=== PATIENT | female | born 1935 | race Caucasian/White ===

== ENCOUNTER 2016-05-01 08:58 | Inpatient (IN) | payer MEDICARE, BC ==
[2016-05-01] VITALS (13 sets, daily range): BP systolic 88–154; BP diastolic 52–89
[~2016-05-01] VITALS: Ht 160 cm; Wt 47.6 kg
[~2016-05-01 08:58] MED LIST: ACET-2267 PO; ALPR0.254 PO; AMLO5TAB4 PO; APIX2.5T PO; ASCO10006 PO; ASCO1TAB36 PO; ATEN1TAB3 PO; CALC1TAB PO; DIGO125T PO; DLT240CCR PO; FLUT12AE4 IH; FURO20TA4 PO; HCT25T PO; IPRA3AMP INH; LISI40TA PO; LORA0.5T PO; LOSA100T28 PO; MULT-1029 PO; NEBU1EAC10 MC; NEBU1EAC2 MC; PRD10T PO; SIMV10TA3 PO; [UNRECOGNIZED DRUG - OTHER]
--- OUTSIDE RECORDS SUMMARY | 2016-05-01 09:04 | XMS REPORT | Continuity of Care Document ---
Author Author [facility] Organization [facility] Address Unknown Phone Unavailable Care Team Providers Care Machine Strap Buckler Name Role Phone CHI SANTANA DO PCP Insurance Providers Payer Name Policy Number Subscriber Name Relationship [employer] [id number] Liv Fierro 18 Self / Same As Patient [facility] [id number] Liv Fierro 18 Self / Same As Patient Advance Directives Directive Response Recorded Date/Time Advance Directives No 06/26/15 6:18pm Health Care Power of Elevator Examiner Y has from another state, in black box at home 06/26/15 6:18pm Organ Donor No 06/26/15 6:18pm Problems Active Problems Medical Problem Onset Date Status COPD with acute exacerbation Unknown Acute Headache Unknown Acute Hypercarbia Unknown Acute Medications Current Home Medications Medication Dose Units Route Directions Days/Qty Instructions Start Date Simvastatin 10 Mg 10 Mg Oral Bedtime 07/06/13 Digoxin 125 Mcg 125 Mcg Oral Daily 11/17/14 Apixaban 2.5 Mg 2.5 Mg Oral Daily 11/17/14 Amlodipine Besylate 5 Mg 5 Mg Oral Daily 11/17/14 Losartan Potassium 100 Mg 100 Mg Oral Daily 06/26/15 Calcium Carbonate/Vitamin D3 1 Each 1 Tab Oral Twice A Day 06/26/15 Multivit-Min/Fa/Lycopene/Lut 1 Each 1 Tab Oral Daily 06/26/15 Acetaminophen 500 Mg 500 Mg Oral Every 4HRS as needed for Pain 06/25 Ascorbic Acid 1,000 Mg 1,000 Mg Oral Bedtime 06/27/15 Ipratropium/Albuterol Sulfate (Duoneb) 3 Ml 3 Ml Inhalation Respiratory Every Four Hours 60 06/29/15 Prednisone 10 Mg 60 Mg Oral Daily 42 Take 6 tabs(60mg)daily, decrease by 1 tab(10mg) every other day. 06/30/15 Alprazolam 0.25 Mg 0.25 Mg Oral Twice A Day as needed for Anxiety 30 06/30/15 Fluticasone/Salmeterol 12 Gm 2 Puff Inhalation Bid@08,20 1 06/30/15 Past Home Medications Medication Directions Ordered Status Hydrochlorothiazide 25 Mg Tab, 12.5 Mg Oral Daily 07/06/13 Discontinued Lisinopril 40 Mg Tablet, 40 Mg Oral Daily 07/06/13 Discontinued Atenolol/Chlorthalidone (Tenoretic) 1 Each Tablet, 1 Each Oral Daily Discontinued Lorazepam 0.5 Mg Tablet, 0.25 Mg Oral As Needed 07/06/13 Discontinued [Yesica, James] , 2.5 Twice A Day 07/07/13 Discontinued Diltiazem Hcl 240 Mg Cap, 240 Mg Oral Daily 07/07/13 Discontinued Alprazolam 0.25 Mg Tablet, 0.25 Mg Oral Twice A Day as needed for Anxiety Discontinued Furosemide 20 Mg Tablet, 20 Mg Oral 11/17/14 Discontinued Ascorbate Calcium/Bioflavonoid 1 Each Tablet, 1 Each Oral 06/26/15 Discontinued Social History Social History Problem Response Recorded Date/Time Alcohol Use Regular Use 06/26/2015 6:19pm Recreational Drug Use No 06/26/2015 6:19pm Recent Foreign Travel No 07/06/2013 6:21pm Recent Infectious Disease Exposure No 07/06/2013 6:21pm Hospitalization with Isolation Denies 07/07/2013 2:43pm Sexually Transmitted Disease No 06/26/2015 6:19pm HIV/AIDS No 06/26/2015 6:19pm Sexually Transmitted Disease No 06/26/2015 6:19pm Hospitalization with Isolation Denies 07/07/2013 2:43pm Hospital Discharge Instructions No hospital discharge instructions. Plan of Care Prescriptions See Medication Section Functional Status No functional status results. Allergies, Adverse Reactions, Alerts No known allergies. Immunizations No immunization records. Vital Signs No known vital signs results. Results No known relevant diagnostic tests, laboratory data and/or discharge summary. Procedures No known history of procedures. Encounters Encounter Location Arrival/Admit Date Discharge/Depart Date Attending Provider Discharged Recurring [facility] 01/11/16 10:00am 11:59pm JASON SCALES DO
[2016-05-01] MEDS ORDERED: RX-NITROGLYCERIN 0.4 MG TAB BTL 25'S SL ONE (09:15)
[2016-05-01] MEDS ORDERED: RT-ALBUTEROL/IPRATROPIUM 3 ML (DUONEB) VIAL INH ONE (09:15)
[2016-05-01] MEDS ORDERED: ASPIRIN 81 MG CHEW (CHILDREN'S ASA) PO ONE (09:15)
[2016-05-01 09:19] LABS: BASOPHILS # (AUTO) 0.1 10^3/uL (0.0-0.1); BASOPHILS % (AUTO) 1 % (0-10); EOSINOPHILS # (AUTO) 0.2 10^3/uL (0.0-0.3); EOSINOPHILS % (AUTO) 2 % (0-10); LYMPHOCYTES # (AUTO) 2.1 X 10^3 (1.0-4.0); LYMPHOCYTES % (AUTO) 27 % (12-44); MEAN CORPUSCULAR HEMOGLOBIN 32 PG (25-34); MEAN CORPUSCULAR HGB CONC 33 G/DL (32-36); MEAN CORPUSCULAR VOLUME 97 FL (80-99); MEAN PLATELET VOLUME 9.8 FL (7.4-10.4); MONOCYTES # (AUTO) 0.8 X 10^3 (0.0-1.0); MONOCYTES % (AUTO) 11 % (0-12); NEUTROPHILS # (AUTO) 4.5 X 10^3 (1.8-7.8); NEUTROPHILS % (AUTO) 58 % (42-75); PLATELET COUNT 316 10^3/uL (130-400); RED BLOOD COUNT 4.26 10^6/uL (4.35-5.85); RED CELL DISTRIBUTION WIDTH 13.6 % (10.0-14.5); WHITE BLOOD COUNT 7.7 10^3/uL (4.3-11.0)
[2016-05-01 09:29] LABS: PROTHROMBIN TIME PATIENT 12.5 SEC (12.2-14.7)
[2016-05-01 09:37] LABS: ALANINE AMINOTRANSFERASE 17 U/L (0-55); ALBUMIN 4.2 G/DL (3.2-4.5); ANION GAP 12 MMOL/L (5-14); ASPARTATE AMINO TRANSFERASE 39 U/L (5-34); BILIRUBIN,TOTAL 0.7 MG/DL (0.1-1.0); BLOOD UREA NITROGEN 8 MG/DL (7-18); BUN/CREATININE RATIO 10; CALCIUM 9.9 MG/DL (8.5-10.1); CARBON DIOXIDE 24 MMOL/L (21-32); CHLORIDE 102 MMOL/L (98-107); CREATININE SERUM 0.79 MG/DL (0.60-1.30); GFR ESTIMATED > 60; GLUCOSE 128 MG/DL (70-105); POTASSIUM 4.3 MMOL/L (3.6-5.0); SODIUM 138 MMOL/L (135-145); TOTAL PROTEIN 6.9 G/DL (6.4-8.2)
[2016-05-01 09:44] LABS: MYOGLOBIN SERUM 372.8 NG/ML (10.0-92.0)
--- NOTE | 2016-05-01 09:55 | Diagnostic Imaging Report ---
INDICATION: Bilateral arm pain. PA chest obtained at 9:37 a.m. and compared to 06/28/15. FINDINGS: Heart is normal in size. There are mild chronic appearing increased basilar markings. There is no acute consolidation or pneumothorax or pleural fluid. There is a rounded density in the right cardiophrenic angle, not present on prior study. It is not clear this is a true lesion or artifact. Consider chest CT as clinically warranted. IMPRESSION: Mild chronic appearing increased basilar markings. No definite consolidation or pleural fluid. There is a rounded density in the right cardiophrenic angle which is not seen on the prior study of 06/28/15. Consider chest CT for further evaluation. Dictated by: Dictated on workstation # [id number]
--- NOTE | 2016-05-01 09:58 | ED Chest Pain ---
General Chief Complaint: Chest Pain Stated Complaint: CHEST/BOTH ARMS PAIN Nursing Triage Note: PT CO OF CHEST PAIN SINCE YESTERDAY AM, PT CO OF C/P BOTH ARMS, HEAD,RATES 8/10. Nursing Sepsis Screen: No Definite Risk Source: patient Exam Limitations: no limitations History of Present Illness Time seen by provider: 09:00 Initial Comments This 80-year-old woman presents to the emergency room with complaints of pain across her lower chest and down both arms. Pain also radiates into her neck and head. She has not been feeling well for several days ago developed the chest pain yesterday morning. It became worse today. She is rather short of breath which is chronic due to COPD. She is presently on a Eliquis for arrhythmia. However, she only takes one dose a day because she has fears of bleeding. She is in sinus rhythm at this time. She denies any history of coronary artery disease. Allergies and Home Medications Allergies Coded Allergies: No Known Drug Allergies (Unverified , 06/26/15) Home Medications Acetaminophen 500 Mg Tablet 500 MG PO Q4H PRN PRN PAIN (Reported) Alprazolam 0.25 Mg Tablet #30 0.25 MG PO BID PRN PRN ANXIETY Prescribed by: SONYA COBOS on 06/30/15 0954 Amlodipine Besylate 5 Mg Tablet 5 MG PO DAILY (Reported) Apixaban 2.5 Mg Tablet 2.5 MG PO DAILY (Reported) Ascorbic Acid 1,000 Mg Tablet 1,000 MG PO HS (Reported) Calcium Carbonate/Vitamin D3 1 Each Tablet 1 TAB PO BID (Reported) Digoxin 125 Mcg Tablet 125 MCG PO DAILY (Reported) Fluticasone/Salmeterol 12 Gm Hfa.aer.ad #1 2 PUFF IH BID@ Prescribed by: SONYA COBOS on 06/30/15 0954 Ipratropium/Albuterol Sulfate 3 Ml Ampul.neb #60 3 ML INH RTQ4HR Prescribed by: SONYA COBOS on 06/29/15 0906 Losartan Potassium 100 Mg Tablet 100 MG PO DAILY (Reported) Multivit-Min/FA/Lycopene/Lut 1 Each Tablet 1 TAB PO DAILY (Reported) Simvastatin 10 Mg Tablet 10 MG PO HS (Reported) Review of Systems Constitutional: no symptoms reported EENTM: No Symptoms Reported Respiratory: See HPI Cardiovascular: See HPI Gastrointestinal: No Symptoms Reported Genitourinary: No Symptoms Reported Musculoskeletal: no symptoms reported Skin: no symptoms reported Psychiatric/Neurological: No Symptoms Reported Endocrine: No Symptoms Reported Hematologic/Lymphatic: No Symptoms Reported Past Hauvfma-Iyjzkv-Ijaxqp Hx Patient Social History Alcohol Use: Regular Use (2-3 drinks daily) Recreational Drug Use: No Smoking Status: Former Smoker Recent Foreign Travel: No Contact w/Someone Who Travel: No Recent Infectious Disease Expo: No Recent Hopitalizations: No Immunizations Up To Date Tetanus Booster (TDap): Less than 5yrs Date of Pneumonia Vaccine: Jan 01, 2009 Date of Influenza Vaccine: Dec 02, 2015 Seasonal Allergies Seasonal Allergies: No Surgeries HX Surgeries: Yes (anurysm repair in [address]) Respiratory Hx Respiratory Disorders: Yes Respiratory Disorders: COPD, Emphysema Cardiovascular Hx Cardiac Disorders: Yes Cardiac Disorders: Atrial Fibrillation, Hypertension Neurological Hx Neurological Disorders: Yes (anurysm repair 2000) Reproductive System Hx Reproductive Disorders: No Sexually Transmitted Disease: No HIV/AIDS: No Genitourinary Hx Genitourinary Disorders: No Gastrointestinal Hx Gastrointestinal Disorders: No Musculoskeletal Hx Musculoskeletal Disorders: Yes ("not significant" ) Musculoskeletal Disorders: Arthritis Endocrine Hx Endocrine Disorders: No HEENT HX ENT Disorders: Yes HEENT Disorders: Cataract Hearing Impairment: Hard of Hearing Cancer Hx Cancer: No Psychosocial Hx Psychiatric Problems: Yes Behavioral Health Disorders: Anxiety Integumentary HX Skin/Integumentary Disorder: No Blood Transfusions Hx Blood Disorders: No Adverse Reaction to a Blood Tr: No Family Medical History Significant Family History: No Pertinent Family Hx Physical Exam Vital Signs Vital Sign - Last 12Hours Capillary Refill : Less Than 3 Seconds General Appearance: WD/WN Mild Distress Thin HEENT: PERRL/EOMI Normal ENT Inspection Neck: Normal Inspection Respiratory: Accessory Muscle Use Decreased Breath Sounds Wheezing (with very prolonged expiratory phase) Cardiovascular: Regular Rate, Rhythm No Edema No Murmur Gastrointestinal: Normal Bowel Sounds Non Tender Soft Extremity: Normal Inspection Non Tender No Calf Tenderness No Pedal Edema Other (negative Komal) Neurologic/Psychiatric: Alert Oriented x3 No Motor/Sensory Deficits 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 Norm as Tested Skin: Normal Color Warm/Dry Progress/Results/Core Measures Results/Orders Lab Results Laboratory Tests Test 05/01/16 09:05 Range/Units Activated Partial Thromboplast Time 34 24-35 SEC Alanine Aminotransferase (ALT/SGPT) 17 0-55 U/L Albumin 4.2 3.2-4.5 G/DL Alkaline Phosphatase 62 40-136 U/L Anion Gap 12 5-14 MMOL/L Aspartate Amino Transf (AST/SGOT) 39 H 5-34 U/L BUN/Creatinine Ratio 10 Basophils # (Auto) 0.1 0.0-0.1 10^3/uL Basophils (%) (Auto) 1 0-10 % Blood Urea Nitrogen 8 7-18 MG/DL Calcium Level 9.9 8.5-10.1 MG/DL Carbon Dioxide Level 24 21-32 MMOL/L Chloride Level 102 98-107 MMOL/L Creatinine 0.79 0.60-1.30 MG/DL Digoxin Level 0.40 L 0.80-2.00 NG/ML Eosinophils # (Auto) 0.2 0.0-0.3 10^3/uL Eosinophils (%) (Auto) 2 0-10 % Estimat Glomerular Filtration Rate > 60 Glucose Level 128 H 70-105 MG/DL Hematocrit 42 35-52 % Hemoglobin 13.8 11.5-16.0 G/DL INR Comment 1.0 0.8-1.4 Lymphocytes # (Auto) 2.1 1.0-4.0 X 10^3 Lymphocytes (%) (Auto) 27 12-44 % Magnesium Level 2.0 1.8-2.4 MG/DL Mean Corpuscular Hemoglobin 32 25-34 PG Mean Corpuscular Hemoglobin Concent 33 32-36 G/DL Mean Corpuscular Volume 97 80-99 FL Mean Platelet Volume 9.8 7.4-10.4 FL Monocytes # (Auto) 0.8 0.0-1.0 X 10^3 Monocytes (%) (Auto) 11 0-12 % Myoglobin 372.8 H 10.0-92.0 NG/ML Neutrophils # (Auto) 4.5 1.8-7.8 X 10^3 Neutrophils (%) (Auto) 58 42-75 % Platelet Count 316 130-400 10^3/uL Potassium Level 4.3 3.6-5.0 MMOL/L Prothrombin Time 12.5 12.2-14.7 SEC Red Blood Count 4.26 L 4.35-5.85 10^6/uL Red Cell Distribution Width 13.6 10.0-14.5 % Sodium Level 138 135-145 MMOL/L Total Bilirubin 0.7 0.1-1.0 MG/DL Total Protein 6.9 6.4-8.2 G/DL Troponin I 2.02 *H <0.30 NG/ML White Blood Count 7.7 4.3-11.0 10^3/uL My Orders Orders-CIRA WALKER MD Cbc With Automated Diff (05/01/16 09:00) Magnesium (05/01/16 09:00) Chest 1 View, Ap/Pa Only (05/01/16 09:00) Ekg Tracing (05/01/16 09:00) Cardiac Profile 1 (05/01/16 09:00) Comprehensive Metabolic Panel (05/01/16 09:00) Myoglobin Serum (05/01/16 09:00) Protime With Inr (05/01/16 09:00) Partial Thromboplastin Time (05/01/16 09:00) O2 (05/01/16 09:00) Monitor-Rhythm Ecg Trace Only (05/01/16 09:00) Lipid Panel (05/02/16 06:00) Saline Lock/Iv-Start (05/01/16 09:00) Aspirin Chewable Tablet (Baby Aspirin Ch (05/01/16 09:15) Rx-Nitroglycerin Sl Tabs (Rx-Nitrostat S (05/01/16 09:15) Albuterol/Ipra Inhalation Soln (Duoneb I (05/01/16 09:15) Svn Sm Volume Nebulizer Rt-Rfs (05/01/16 09:10) Fentanyl Injection (Sublimaze Injection (05/01/16 10:00) Clopidogrel Tablet (Plavix Tablet) (05/01/16 10:15) Metoprolol Succinate (Xl) Tab (Toprol Xl (05/01/16 10:15) Heparin Drip 31385 Unit/500ml (Heparin (05/01/16 10:07) Heparin (Bolus Per Protocol) (Heparin (B (05/01/16 10:07) Digoxin (05/01/16 10:21) Metoprolol Succinate (Xl) Tab (Toprol Xl (05/01/16 10:30) Medications Given in ED Current Medications Medications Dose Ordered Sig/Rika Route Start Time Stop Time Status Last Admin Dose Admin Albuterol/ Ipratropium 3 ml ONCE ONCE INH 05/01/16 09:15 05/01/16 09:16 DC 05/01/16 09:25 3 ML Aspirin 324 mg ONCE ONCE PO 05/01/16 09:15 05/01/16 09:16 DC 05/01/16 09:20 324 MG Clopidogrel Bisulfate 150 mg 150 mg ONCE ONCE PO 05/01/16 10:15 05/01/16 10:16 DC 05/01/16 10:21 150 MG Fentanyl Citrate 50 mcg ONCE ONCE IVP 05/01/16 10:00 05/01/16 10:01 DC 05/01/16 10:05 50 MCG Heparin Sodium (Porcine) HEPARIN BOLUS ACS PROTOC... 1007 ONCE IV 05/01/16 10:07 05/01/16 10:09 DC 05/01/16 10:20 5,000 UNIT Heparin Sodium/ Dextrose 500 ml @ 0 mls/hr Q0M ONCE IV 05/01/16 10:07 05/01/16 10:09 DC 05/01/16 10:22 12 MLS/HR Nitroglycerin 0.4 mg UD ONCE SL 05/01/16 09:15 05/01/16 09:16 DC 05/01/16 09:19 0.4 MG Vital Signs/I&O Vital Sign - Last 12Hours 05/01/16 05/01/16 05/01/16 05/01/16 09:00 09:00 09:00 09:25 Temp 97.8 Pulse 57 Resp 22 B/P 159/89 Pulse Ox 99 99 98 O2 Delivery Nasal Cannula Nasal Cannula Nasal Cannula O2 Flow Rate 2 2 2 2.5 Blood Pressure Mean: 112 Progress Note #1: Time: 10:05 Progress Note Patient's pain was not alleviated with nitroglycerin or DuoNeb treatment. Patient was given aspirin per protocol. Pain is now a 6/10 which was slightly improved from 8/10. Troponin elevation was noted on labs and Dr. Zaragoza was notified. He requests Plavix 150 mg, Toprol-XL 50-100 mg, heparin drip, and admission to the ICU. He also request consultation with Dr. Anguiano and Dr. DURAND. Progress Note #2: Time: 10:30 Progress Note Vitals are stable. Patient is now pain-free after fentanyl. Patient has received medications as detailed above. Toprol-XL 50 mg rather than 100 mg was administered as blood pressure and heart rate improved after pain was controlled. He requests narcotics be administered for pain control. ECG Initial ECG Impression Date: May 01, 2016 Initial ECG Impression Time: 09:04 Initial ECG Rate: 71 Initial ECG Rhythm: Normal Sinus Comment Sinus rhythm with no ST elevation or depression. Borderline T wave abnormalities nondiagnostic of STEMI. Frequent PVCs noted. Diagnostic Imaging Diagonstic Imaging: Xray Plain Films/CT/US/NM/MRI: chest Comments Chest x-ray viewed by me and report reviewed. See report below: NAME: LIV CARTER [facility] REC#: [id number] PT STATUS: REG ER : 1935 PHYSICIAN: CIRA WALKER MD ADMIT DATE: 05/01/16/ER Draft Date of Exam:05/01/16 CHEST 1 VIEW, AP/PA ONLY INDICATION: Bilateral arm pain. PA chest obtained at 9:37 a.m. and compared to 06/28/15. FINDINGS: Heart is normal in size. There are mild chronic appearing increased basilar markings. There is no acute consolidation or pneumothorax or pleural fluid. There is a rounded density in the right cardiophrenic angle, not present on prior study. It is not clear this is a true lesion or artifact. Consider chest CT as clinically warranted. IMPRESSION: Mild chronic appearing increased basilar markings. No definite consolidation or pleural fluid. There is a rounded density in the right cardiophrenic angle which is not seen on the prior study of 06/28/15. Consider chest CT for further evaluation. Dictated on workstation # [id number] Dict: 05/01/16 0950 Trans: 05/01/16 0955 [id number] Interpreted by: SANDY PHILIPPE MD Departure Communication Time/Spoke to Admitting Phy: 10:05 Communication Case was discussed with Dr. Zaragoza. See notes above. He requests consultation with Dr. Anguiano and Dr. DURAND. Time/Spoke to Consulting Physi: 10:31 Communication/Consulting Dr. Durand was notified of consult. We discussed the end STEMI, abnormal chest findings, and alcohol use. She will follow-up on the chest x-ray and monitor the patient for alcohol withdrawal. Patient reported she has been able to tolerate several days off of alcohol in the past and is not concerned about withdrawal. Impression Impression: Primary Impression: Non-ST elevation myocardial infarction (NSTEMI) Additional Impressions: Abnormal chest x-ray Chest pain Qualified Code: R07.9 - Chest pain, unspecified Alcohol dependence Qualified Code: F10.29 - Alcohol dependence with unspecified alcohol-induced disorder History of atrial fibrillation COPD exacerbation Disposition: ADMITTED INPATIENT Condition: Improved Decision to Admit Reason: Admit from ER (General) Decision to Admit/Date: May 01, 2016 Time/Decision to Admit Time: 09:15 Departure-Patient Inst. Referrals: CHI DURAND DO (PCP/Family) Primary Care Physician CIRA WALKER MD May 01, 2016 09:58
[2016-05-01] MEDS ORDERED: fentaNYL INJECTION 100 MCG/2 ML AMP IVP ONE (10:00)
[2016-05-01] MEDS ORDERED: HEParin 1000 UNIT/ML (10ML VIAL) FOR BOLUS IV ONE (10:07)
[2016-05-01] MEDS ORDERED: HEParin DRIP 25000 UNIT/500ML 500 ML IV ONE (10:07)
[2016-05-01] MEDS ORDERED: meTOproloL SUCCINATE 50 MG (TOPROL XL) TAB PO SCH ×2 (10:15→10:30)
[2016-05-01] MEDS ORDERED: CLOPIDOGREL 75 MG (PLAVIX) TABLET PO ONE (10:15)
[2016-05-01] MEDS ORDERED: ONDANSETRON 4 MG/2 ML (SDV) Z0FRAN IV PRN (11:45)
[2016-05-01] MEDS ORDERED: morphine INJ 4 MG/ML 1 ML (VIAL/SYRINGE) IV PRN (11:45)
[2016-05-01] MEDS ORDERED: CATHETER FLUSH 10 ML SYR IV PRN (11:45)
[2016-05-01] MEDS ORDERED: NS IV 1000 ML 1,000 ML IV SCH (11:45)
--- NOTE | 2016-05-01 13:05 | Cardiology History & Physical ---
HPI-Cardiology Cardiology H&P Date of Admission 05/01/16 Primary Care Physician Mercedes Durand DO Attending Physician Olimpia Zaragoza MD FACP [facility] Consulting Physician [facility] CC: Chest discomfort HPI: 80 yo woman with midsternal discomfort, waxing and waning, but not fully resolved for approx 18 hours prior to presentation. Was mild to mod, radiating to arms, pressure-like, not associated with other symptoms. Currently, no chest discomfort. Has chronic B[place], unchanged in the recent past. Denies palp or syncope. Denies recent cough, fever, chill, ankle swelling Review of Systems-Cardiology Review of Systems Constitutional: No weight loss, No weight gain Eyes: No vision change Ears/Nose/Throat: No ear discharge, No nasal drainage, No recent hearing loss Respiratory: As described under HPI Cardiovascular: As described under HPI Gastrointestinal: No constipation, No diarrhea, No nausea, No vomiting Genitourinary: No dysuria, No hematuria Musculoskeletal: No back pain, joint painNo joint swelling Skin: No rash, No ulcerations Psychiatric/Neurological: No focal weakness, No syncope Hematologic: No bleeding abnormalities VYP-Nwqgfm-Hmqfpc Hx Patient Social History Alcohol Use: Regular Use (2-3 drinks daily) Recreational Drug Use: No Smoking Status: Former Smoker Recent Foreign Travel: No Recent Infectious Disease Expo: No Hospitalization with Isolation: Denies Immunizations Up To Date Tetanus Booster (TDap): Less than 5yrs Date of Pneumonia Vaccine: Jan 01, 2009 Date of Influenza Vaccine: Dec 02, 2015 Past Medical History PMH As described under Assessment. Family Medical History Family Medical History: No fam h/o early CAD or SCD Allergies and Home Medications Allergies Coded Allergies: No Known Drug Allergies (Unverified , 06/26/15) Home Medications Acetaminophen 500 Mg Tablet 500 MG PO Q4H PRN PRN PAIN (Reported) Alprazolam 0.25 Mg Tablet #30 0.25 MG PO BID PRN PRN ANXIETY Prescribed by: SONYA COBOS on 06/30/15 0933 Amlodipine Besylate 5 Mg Tablet 5 MG PO DAILY (Reported) Apixaban 2.5 Mg Tablet 2.5 MG PO DAILY (Reported) Ascorbic Acid 1,000 Mg Tablet 1,000 MG PO HS (Reported) Calcium Carbonate/Vitamin D3 1 Each Tablet 1 TAB PO BID (Reported) Digoxin 125 Mcg Tablet 125 MCG PO DAILY (Reported) Fluticasone/Salmeterol 12 Gm Hfa.aer.ad #1 2 PUFF IH BID@08,20 Prescribed by: SONYA COBOS on 06/30/15 0954 Ipratropium/Albuterol Sulfate 3 Ml Ampul.neb #60 3 ML INH RTQ4HR Prescribed by: SONYA COBOS on 06/29/15 0906 Losartan Potassium 100 Mg Tablet 100 MG PO DAILY (Reported) Multivit-Min/FA/Lycopene/Lut 1 Each Tablet 1 TAB PO DAILY (Reported) Simvastatin 10 Mg Tablet 10 MG PO HS (Reported) Physical Exam-Cardiology Physical Exam Vital Signs/I&O Vital Sign - Last 12Hours 05/01/16 05/01/16 05/01/16 05/01/16 09:00 09:00 09:00 09:25 Temp 97.8 Pulse 57 Resp 22 B/P 159/89 Pulse Ox 99 99 98 O2 Delivery Nasal Cannula Nasal Cannula Nasal Cannula O2 Flow Rate 2 2 2 2.5 05/01/16 11:23 Temp 97.8 Pulse 71 Resp 16 Pulse Ox 98 O2 Flow Rate 2.5 Capillary Refill : Less Than 3 Seconds Data Review Labs Laboratory Tests 05/01/16 09:05: Activated Partial Thromboplast Time 34, Alanine Aminotransferase (ALT/SGPT) 17, Albumin 4.2, Alkaline Phosphatase 62, Anion Gap 12, Aspartate Amino Transf (AST/ SGOT) 39H, BUN/Creatinine Ratio 10, Basophils # (Auto) 0.1, Basophils (%) (Auto ) 1, Blood Urea Nitrogen 8, Calcium Level 9.9, Carbon Dioxide Level 24, Chloride Level 102, Creatinine 0.79, Digoxin Level 0.40L, Eosinophils # (Auto) 0.2, Eosinophils (%) (Auto) 2, Estimat Glomerular Filtration Rate > 60, Glucose Level 128H, Hematocrit 42, Hemoglobin 13.8, INR Comment 1.0, Lymphocytes # (Auto ) 2.1, Lymphocytes (%) (Auto) 27, Magnesium Level 2.0, Mean Corpuscular Hemoglobin 32, Mean Corpuscular Hemoglobin Concent 33, Mean Corpuscular Volume 97, Mean Platelet Volume 9.8, Monocytes # (Auto) 0.8, Monocytes (%) (Auto) 11, Myoglobin 372.8H, Neutrophils # (Auto) 4.5, Neutrophils (%) (Auto) 58, Platelet Count 316, Potassium Level 4.3, Prothrombin Time 12.5, Red Blood Count 4.26L, Red Cell Distribution Width 13.6, Sodium Level 138, Total Bilirubin 0.7, Total Protein 6.9, Troponin I 2.02*H, White Blood Count 7.7 A/P-Cardiology Assessment/Admission Diagnosis Ac NSTEMI SSS with intermittent PAF with MAT MPI 08/26/13 shows no ischemia or infarction and LVEF of 74% Echo of January 2016 showed LVEF 60%-65% and mild MR and TR and PASP 45 mmHg. 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 Now on supplemental oxygen since early Dec 2013 Hyperlipidemia treated chronically with statins, according to the patient Bilat leg swelling, likely related to venous insufficiency and/or calcium channel roc therapy Nonspecific intolerance to beta-roc Headaches, chronic, for which f/u is with her fam phy Discussion and Recomendations * Given ACS in the setting of multiple cor risk factors, we recommend card cath * We discussed the procedure, risks, benefits, potential complications, alternatives of card cath and possible ad hoc cor intervention and answered questions. She understands and provides informed consent * Therapy with aspirin, clopidogrel, beta-roc and iv heparin has been initiated * We have advised her to continue to refrain from tobacco use Clinical Quality Measures AMI/AHF: ASA po Prior to arrival: OLIMPIA Brown MD FACP FAC [facility] May 01, 2016 13:05
[2016-05-01] MEDS ORDERED: FLUT12AE4 IH (15:33)
[2016-05-01] MEDS ORDERED: SULF1TAB35 PO (15:33)
[2016-05-01] MEDS ORDERED: TIOT18CA2 IH (15:33)
[2016-05-01] MEDS ORDERED: ALPR0.25 PO (15:33)
[2016-05-01] MEDS ORDERED: NS IV 1000 ML 0 ML ONE (16:55)
[2016-05-01] MEDS ORDERED: LIDOCAINE 1% INJ 20 ML (XYLOCAINE) VIAL ONE (16:55)
[2016-05-01] MEDS ORDERED: HEParin (CATH LAB) 2,000 ML IV ONE (16:56)
[2016-05-01] MEDS ORDERED: diphenhydrAMINE 50 MG/ML INJ (BENADRYL) ONE (17:10)
[2016-05-01] MEDS ORDERED: MIDAZOLAM 5 MG/5 ML (VERSED) VIAL ONE (17:10)
[2016-05-01] MEDS ORDERED: fentaNYL INJECTION 100 MCG/2 ML AMP ONE (17:10)
[2016-05-01] MEDS: RT-ALBUTEROL/IPRATROPIUM 3 ML (DUONEB) VIAL INH SCH ×2 (18:00→22:16)
[2016-05-01] MEDS ORDERED: PATIENT MAY USE OWN MEDS, ALL PO SCH (18:30)
--- NOTE | 2016-05-01 19:29 | Consultation ---
History of Present Illness History of Present Illness Patient Consulted On(clementina/time) 05/01/16 19:23 Date of Admission History of Present Illness This is an 80 year old female with a history of COPD, anxiety and atrial fibrillation who called my office complaining of chest pain. She was instructed to report to the emergency room. She has the chest pain since the night before--she described it as substernal pressure radiating to both arms with associated shortness of air. She also reported worsening anxiety and panic type symptoms. Upon examination in the ER she was found to have and acute non STEMI with an elevated troponin. She was directly admitted to the ICU under cardiology. I am asked to consult for medical management. Allergies and Home Medications Allergies Coded Allergies: No Known Drug Allergies (Unverified , 06/26/15) Home Medications Acetaminophen 500 Mg Tablet 500 MG PO Q4H PRN PRN PAIN (Reported) Alprazolam 0.25 Mg Tablet 0.25 MG PO BID PRN PRN ANXIETY (Reported) Apixaban 2.5 Mg Tablet 2.5 MG PO DAILY (Reported) LAST FILLED 10/16/15 #60 Ascorbic Acid 1,000 Mg Tablet 1,000 MG PO HS (Reported) Calcium Carbonate/Vitamin D3 1 Each Tablet 1 TAB PO BID (Reported) Digoxin 125 Mcg Tablet 125 MCG PO DAILY (Reported) Fluticasone/Salmeterol 12 Gm Hfa.aer.ad 2 PUFF IH BID (Reported) Losartan Potassium 100 Mg Tablet 100 MG PO DAILY (Reported) Multivit-Min/FA/Lycopene/Lut 1 Each Tablet 1 TAB PO DAILY (Reported) Simvastatin 10 Mg Tablet 10 MG PO HS (Reported) Sulfamethoxazole/Trimethoprim 1 Each Tablet 1 TAB PO BID (Reported) FILLED 04/29/16 #14 FOR A 7 DAY THERAPY Tiotropium [place] 1 Inh Aerp 2 PUFF IH DAILY (Reported) Past Kfxdrho-Wubzmx-Lyacus Hx Patient Social History Alcohol Use: Occasionally Uses Recreational Drug Use: No Smoking Status: Former Smoker Type Used: Cigarettes Recent Foreign Travel: No Contact w/Someone Who Travel: No Recent Infectious Disease Expo: No Recent Hopitalizations: No Physical Abuse Screen: No Sexual Abuse: No Immunizations Up To Date Tetanus Booster (TDap): Less than 5yrs Date of Pneumonia Vaccine: Jan 01, 2009 Date of Influenza Vaccine: Dec 02, 2015 Seasonal Allergies Seasonal Allergies: No Surgeries HX Surgeries: Yes (anurysm repair in [address]) Respiratory Hx Respiratory Disorders: Yes Respiratory Disorders: COPD, Emphysema Cardiovascular Hx Cardiac Disorders: Yes Cardiac Disorders: Atrial Fibrillation, Hypertension Neurological Hx Neurological Disorders: Yes (anurysm repair 2000) Reproductive System Hx Reproductive Disorders: No Sexually Transmitted Disease: No HIV/AIDS: No Genitourinary Hx Genitourinary Disorders: No Gastrointestinal Hx Gastrointestinal Disorders: No Musculoskeletal Hx Musculoskeletal Disorders: Yes ("not significant" ) Musculoskeletal Disorders: Arthritis Endocrine Hx Endocrine Disorders: No HEENT HX ENT Disorders: Yes HEENT Disorders: Cataract Hearing Impairment: Hard of Hearing Cancer Hx Cancer: No Psychosocial Hx Psychiatric Problems: Yes Behavioral Health Disorders: Anxiety Integumentary HX Skin/Integumentary Disorder: No Blood Transfusions Hx Blood Disorders: No Adverse Reaction to a Blood Tr: No Family Medical History Significant Family History: No Pertinent Family Hx Family Medial History: Review of Systems-General Constitutional: weakness EENTM: No blurred vision, No dental problems, No double vision, No ear discharge, No ear pain, No epistaxis, No eye pain, No hearing loss, No hoarseness, No mouth pain, No mouth swelling, No no symptoms reported, No nose congestion, No nose pain, No other, No see HPI, No tearing, No throat pain, No throat swelling, No vision loss Respiratory: dyspnea on exertion short of breath Cardiovascular: chest pain Gastrointestinal: No RUQ, No LUQ, No RLQ, No LLQ, No no symptoms reported, No see HPI, No abdominal pain, No constipation, No diarrhea, No dysphagia, No hematemesis, No heartburn, No jaundice, No loss of appetite, No melena, No nausea, No vomiting, No other Genitourinary: No no symptoms reported, No see HPI, No decreased output, No discharge, No dysuria, No frequency, No hematuria, No hesitancy, No incontinence , No nocturia, No pain, No other Musculoskeletal: other (radiation of pain to arms) Skin: No no symptoms reported, No see HPI, No change in color, No change in hair/nails, No dryness, No hx of skin cancer, No lesions, No lumps, No pruritus , No rash, No other Psychiatric/Neurological: Anxiety Physical Exam-General Problems Physical Exam Vital Signs Vital Sign - Last 12Hours Capillary Refill : Less Than 3 Seconds General Appearance: WD/WN no apparent distress HEENT: normal ENT inspection Neck: supple Respiratory: lungs clear decreased breath sounds Cardiovascular: regular rate, rhythm systolic murmur Gastrointestinal: normal bowel sounds non tender soft Rectal: deferred Back: no CVA tenderness Extremities: normal range of motion non-tender no pedal edema no calf tenderness Neurologic/Psychiatric: alert normal mood/affect oriented x 3 Skin: normal color warm/dry Comments Laboratory Tests 05/01/16 09:05: Activated Partial Thromboplast Time 34, Alanine Aminotransferase (ALT/SGPT) 17, Albumin 4.2, Alkaline Phosphatase 62, Anion Gap 12, Aspartate Amino Transf (AST/ SGOT) 39H, BUN/Creatinine Ratio 10, Basophils # (Auto) 0.1, Basophils (%) (Auto ) 1, Blood Urea Nitrogen 8, Calcium Level 9.9, Carbon Dioxide Level 24, Chloride Level 102, Creatinine 0.79, Digoxin Level 0.40L, Eosinophils # (Auto) 0.2, Eosinophils (%) (Auto) 2, Estimat Glomerular Filtration Rate > 60, Glucose Level 128H, Hematocrit 42, Hemoglobin 13.8, INR Comment 1.0, Lymphocytes # (Auto ) 2.1, Lymphocytes (%) (Auto) 27, Magnesium Level 2.0, Mean Corpuscular Hemoglobin 32, Mean Corpuscular Hemoglobin Concent 33, Mean Corpuscular Volume 97, Mean Platelet Volume 9.8, Monocytes # (Auto) 0.8, Monocytes (%) (Auto) 11, Myoglobin 372.8H, Neutrophils # (Auto) 4.5, Neutrophils (%) (Auto) 58, Platelet Count 316, Potassium Level 4.3, Prothrombin Time 12.5, Red Blood Count 4.26L, Red Cell Distribution Width 13.6, Sodium Level 138, Total Bilirubin 0.7, Total Protein 6.9, Troponin I 2.02*H, White Blood Count 7.7 05/01/16 15:04: Troponin I 5.31*H 05/01/16 16:20: Activated Partial Thromboplast Time 110H Assessment/Plan Assessment/Plan Admission Diagnosis/Plan 1. Non-STEMI--directly admitted to ICU by cardiology and cardiac cath 2. COPD--restart home meds, oxygen, SVNS 3. Right Lung Nodule--Check CT scan of chest 4. Anxiety--resume home meds 5. History of Atrial Fibrillation--in NSR 6. Alcohol Abuse--Thiamin and Folic acid and observe for withdrawal Clinical Quality Measures AMI/AHF: ASA po Prior to arrival: No DVT/VTE Risk/Contraindication: Risk Factor Score Per Nursin RFS Level Per Nursing on Admit: 2=Moderate CHI SANTANA DO May 01, 2016 19:28
[2016-05-01] MEDS ORDERED: THIAMINE 100 MG (VITAMIN B-1) TAB PO NR (19:30)
[2016-05-01] MEDS ORDERED: FOLIC ACID 1 MG TAB PO NR (19:30)
[2016-05-01] MEDS: ALPRAZolam 0.25 MG (XANAX) TAB PO PRN (21:29)
[2016-05-01] MEDS: ATORVASTATIN 40 MG (LIPITOR) TABLET PO SCH (21:29)
[2016-05-01] MEDS: ENOXAPARIN 40 MG/0.4 ML (LOVENOX) SYR SC SCH (21:30)
[2016-05-01] MEDS: NS IV 1000 ML 1,000 ML IV SCH (22:12)
[2016-05-01] MEDS: RT-ADVAIR HFA 115/21 MCG PER PUFF IH SCH (22:16)
[2016-05-02] VITALS (13 sets, daily range): BP systolic 77–130; BP diastolic 45–90
[2016-05-02] MEDS: RT-ALBUTEROL/IPRATROPIUM 3 ML (DUONEB) VIAL INH SCH ×6 (02:00→21:15)
[2016-05-02] MEDS: NS IV 1000 ML 1,000 ML IV SCH ×2 (04:26→07:53)
[2016-05-02 04:43] LABS: RED BLOOD COUNT 3.76 10^6/uL (4.35-5.85); RED CELL DISTRIBUTION WIDTH 13.8 % (10.0-14.5); WHITE BLOOD COUNT 9.7 10^3/uL (4.3-11.0)
[2016-05-02 05:15] LABS: ALANINE AMINOTRANSFERASE 15 U/L (0-55); ALBUMIN 3.5 G/DL (3.2-4.5); ANION GAP 10 MMOL/L (5-14); ASPARTATE AMINO TRANSFERASE 47 U/L (5-34); BILIRUBIN,TOTAL 0.5 MG/DL (0.1-1.0); BLOOD UREA NITROGEN 7 MG/DL (7-18); BUN/CREATININE RATIO 10; CALCIUM 8.8 MG/DL (8.5-10.1); CARBON DIOXIDE 23 MMOL/L (21-32); CHLORIDE 107 MMOL/L (98-107); CHOLESTEROL 159 MG/DL (< 200); CREATININE SERUM 0.67 MG/DL (0.60-1.30); DIRECT LDL 75 MG/DL (1-129); GFR ESTIMATED > 60; GLUCOSE 74 MG/DL (70-105); MAGNESIUM 1.9 MG/DL (1.8-2.4); POTASSIUM 3.8 MMOL/L (3.6-5.0); SODIUM 140 MMOL/L (135-145); TOTAL PROTEIN 5.5 G/DL (6.4-8.2); TRIGLYCERIDES 102 MG/DL (<150); VLDL CHOLESTEROL 20 MG/DL (5-40)
[2016-05-02] MEDS: RT-ADVAIR HFA 115/21 MCG PER PUFF IH SCH ×2 (06:42→21:15)
--- NOTE | 2016-05-02 07:17 | Pulmonary Consultation ---
History of Present Illness History of Present Illness Date of Consultation 05/02/16 07:11 Date of Admission History of Present Illness 80yo with a history of COPD, anxiety and atrial fibrillation presented to [facility] secondary to midsternal CP pressure with radiation to arms, and SOB. She was dx with NSTEMI in ED and admitted to ICU with cardiology consult Denies palp or syncope. Denies recent cough, fever, chill, ankle swelling. I am consulted for pulmonary management. Allergies and Home Medications Allergies Coded Allergies: No Known Drug Allergies (Unverified , 06/26/15) Home Medications Acetaminophen 500 Mg Tablet 500 MG PO Q4H PRN PRN PAIN (Reported) Alprazolam 0.25 Mg Tablet 0.25 MG PO BID PRN PRN ANXIETY (Reported) Apixaban 2.5 Mg Tablet 2.5 MG PO DAILY (Reported) LAST FILLED 10/16/15 #60 Ascorbic Acid 1,000 Mg Tablet 1,000 MG PO HS (Reported) Calcium Carbonate/Vitamin D3 1 Each Tablet 1 TAB PO BID (Reported) Digoxin 125 Mcg Tablet 125 MCG PO DAILY (Reported) Fluticasone/Salmeterol 12 Gm Hfa.aer.ad 2 PUFF IH BID (Reported) Losartan Potassium 100 Mg Tablet 100 MG PO DAILY (Reported) Multivit-Min/FA/Lycopene/Lut 1 Each Tablet 1 TAB PO DAILY (Reported) Simvastatin 10 Mg Tablet 10 MG PO HS (Reported) Sulfamethoxazole/Trimethoprim 1 Each Tablet 1 TAB PO BID (Reported) FILLED 04/29/16 #14 FOR A 7 DAY THERAPY Tiotropium [place] 1 Inh Aerp 2 PUFF IH DAILY (Reported) Past Hklavfr-Wnlbyl-Zhbwbx Hx Patient Social History Alcohol Use: Occasionally Uses Recreational Drug Use: No Smoking Status: Former Smoker Type Used: Cigarettes Recent Foreign Travel: No Contact w/Someone Who Travel: No Recent Infectious Disease Expo: No Recent Hopitalizations: No Physical Abuse Screen: No Sexual Abuse: No Immunizations Up To Date Tetanus Booster (TDap): Less than 5yrs Date of Pneumonia Vaccine: Jan 01, 2009 Date of Influenza Vaccine: Dec 02, 2015 Seasonal Allergies Seasonal Allergies: No Surgeries HX Surgeries: Yes (anurysm repair in [address]) Respiratory Hx Respiratory Disorders: Yes Respiratory Disorders: COPD, Emphysema Cardiovascular Hx Cardiac Disorders: Yes Cardiac Disorders: Atrial Fibrillation, Hypertension Neurological Hx Neurological Disorders: Yes (anurysm repair 2000) Reproductive System Hx Reproductive Disorders: No Sexually Transmitted Disease: No HIV/AIDS: No Genitourinary Hx Genitourinary Disorders: No Gastrointestinal Hx Gastrointestinal Disorders: No Musculoskeletal Hx Musculoskeletal Disorders: Yes ("not significant" ) Musculoskeletal Disorders: Arthritis Endocrine Hx Endocrine Disorders: No HEENT HX ENT Disorders: Yes HEENT Disorders: Cataract Hearing Impairment: Hard of Hearing Cancer Hx Cancer: No Psychosocial Hx Psychiatric Problems: Yes Behavioral Health Disorders: Anxiety Integumentary HX Skin/Integumentary Disorder: No Blood Transfusions Hx Blood Disorders: No Adverse Reaction to a Blood Tr: No Family Medical History Significant Family History: No Pertinent Family Hx Family Medial History: Exam Exam Vital Signs Date Time Temp Pulse Resp B/P Pulse Ox O2 Delivery O2 Flow Rate FiO2 05/02/16 06:42 100 2.00 05/02/16 06:00 63 13 100/58 Nasal Cannula 2.00 05/02/16 05:00 66 13 100/57 Nasal Cannula 2.00 05/02/16 04:00 95 2.00 05/02/16 04:00 69 12 77/45 Nasal Cannula 2.00 05/02/16 04:00 97.2 05/02/16 03:00 71 14 84/49 Nasal Cannula 2.00 05/02/16 02:01 98 2.00 05/02/16 02:00 68 13 90/57 Nasal Cannula 2.00 05/02/16 01:00 76 15 123/60 Nasal Cannula 2.00 05/02/16 01:00 76 05/02/16 00:00 71 14 84/57 96 Nasal Cannula 2.00 05/02/16 00:00 95 2.00 05/02/16 00:00 98.3 05/01/16 23:00 80 27 88/52 95 Nasal Cannula 2.00 05/01/16 22:23 95 2.00 05/01/16 22:17 96 2.00 05/01/16 22:00 64 16 118/75 96 Nasal Cannula 2.00 05/01/16 21:00 67 13 132/76 96 Nasal Cannula 2.00 05/01/16 20:00 95 2.00 05/01/16 20:00 68 14 141/88 96 Nasal Cannula 2.00 05/01/16 20:00 98.6 05/01/16 19:00 64 12 136/88 97 Nasal Cannula 2.00 05/01/16 19:00 64 05/01/16 18:38 146/89 05/01/16 17:41 98.7 76 22 133/76 98 Nasal Cannula 2.50 05/01/16 16:45 65 13 138/76 97 Nasal Cannula 2.50 05/01/16 15:45 70 21 132/78 98 Nasal Cannula 2.50 05/01/16 14:45 70 26 154/82 97 Nasal Cannula 2.50 05/01/16 13:54 97 05/01/16 13:46 96 2.00 05/01/16 13:45 73 12 130/71 98 Nasal Cannula 2.50 05/01/16 13:00 75 05/01/16 12:45 70 12 118/71 97 Nasal Cannula 2.50 05/01/16 12:36 75 05/01/16 11:45 133/76 05/01/16 11:35 98 2.50 05/01/16 11:23 97.8 71 16 98 2.5 05/01/16 09:25 98 2.5 05/01/16 09:00 99 Nasal Cannula 2 05/01/16 09:00 97.8 57 22 159/89 99 Nasal Cannula 2 05/01/16 09:00 Nasal Cannula 2 I & O 05/02/16 07:00 Intake Total 375 ml Balance 375 ml General Appearance: WD/WN Mild Distress Thin HEENT: PERRL/EOMI Normal ENT Inspection Neck: Normal Inspection Respiratory: Accessory Muscle Use Decreased Breath Sounds Wheezing (with very prolonged expiratory phase) Cardiovascular: Regular Rate, Rhythm No Edema No Murmur Capillary Refill: Less Than 3 Seconds Gastrointestinal: normal bowel sounds non tender soft Extremity: Normal Inspection Non Tender No Calf Tenderness No Pedal Edema Other (negative Komal) Neurologic/Psychiatric: Alert Oriented x3 No Motor/Sensory Deficits Normal Mood/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
[2016-05-02] MEDS: THIAMINE 100 MG (VITAMIN B-1) TAB PO SCH (07:52)
[2016-05-02] MEDS: meTOproloL SUCCINATE 50 MG (TOPROL XL) TAB PO SCH (07:52)
[2016-05-02] MEDS: ASPIRIN E.C. 81 MG (ECOTRIN) TAB PO SCH (07:52)
[2016-05-02] MEDS: CLOPIDOGREL 75 MG (PLAVIX) TABLET PO SCH (07:52)
[2016-05-02] MEDS: FOLIC ACID 1 MG TAB PO SCH (07:52)
[2016-05-02] MEDS ORDERED: ASPIRIN E.C. 325 MG (ECOTRIN) TABLET PO SCH (09:00)
--- NOTE | 2016-05-02 09:14 | Diagnostic Imaging Report ---
PROCEDURE: CT chest without contrast. TECHNIQUE: Multiple contiguous axial images were obtained through the chest without the use of intravenous contrast. INDICATION: Mass in the medial aspect of the left lung base. Chest x-ray of 05/01/2016. No prior similar studies are available for comparison. FINDINGS: There is extensive emphysema changes seen. There is a 1 cm nodule in the left lung base medially and another 1 cm nodule laterally at the same level, axial image 44. The lesion seen in the medial aspect of the right lung base is a fat-containing diaphragmatic hernia along the posterior medial aspect of the left hemidiaphragm. There is no significant consolidation or mass seen in the lungs otherwise. The heart size is normal. The thoracic aorta is normal in caliber. There is no mediastinal mass. No significantly enlarged lymph nodes are seen in the mediastinum or axilla. The hilar vessels are not opacified on this unenhanced exam with no obvious hilar mass. There is mild left convexity curvature in the lower thoracic spine. Degenerative changes in the lower thoracic spine are seen. IMPRESSION: 1. The medial right lung base nodule seen on chest x-ray is a fat-containing diaphragmatic hernia. 2. Indeterminate 1 cm nodules in the left lung base seen. Followup exam in 3 months is recommended with a low-dose unenhanced CT scan of the chest to observe these lesions. Dictated by: Dictated on workstation # [id number]
--- NOTE | 2016-05-02 09:26 | Progress Note-Cardiology ---
Cardiology SOAP Progress Note Subjective: No chest pain Chronic exertional shortness of breath No palp or syncope or leg swelling Afraid to take oral anticoag Objective: I&O/Vital Signs Vital Sign - Last 12Hours 05/01/16 05/01/16 05/01/16 05/01/16 22:00 22:17 22:23 23:00 Pulse 64 80 Resp 16 27 B/P 118/75 88/52 Pulse Ox 96 96 95 95 O2 Delivery Nasal Cannula Nasal Cannula O2 Flow Rate 2.00 2.00 2.00 2.00 05/02/16 05/02/16 05/02/16 05/02/16 00:00 00:00 00:00 01:00 Temp 98.3 Pulse 71 76 Resp 14 B/P 84/57 Pulse Ox 95 96 O2 Delivery Nasal Cannula O2 Flow Rate 2.00 2.00 05/02/16 05/02/16 05/02/16 05/02/16 01:00 02:00 02:01 03:00 Pulse 76 68 71 Resp 15 13 14 B/P 123/60 90/57 84/49 Pulse Ox 98 O2 Delivery Nasal Cannula Nasal Cannula Nasal Cannula O2 Flow Rate 2.00 2.00 2.00 2.00 05/02/16 05/02/16 05/02/16 05/02/16 04:00 04:00 04:00 05:00 Temp 97.2 Pulse 69 66 Resp 12 13 B/P 77/45 100/57 Pulse Ox 95 O2 Delivery Nasal Cannula Nasal Cannula O2 Flow Rate 2.00 2.00 2.00 05/02/16 05/02/16 05/02/16 05/02/16 06:00 06:42 07:00 08:00 Pulse 63 75 Resp 13 B/P 100/58 Pulse Ox 100 O2 Delivery Nasal Cannula O2 Flow Rate 2.00 2.00 3.00 Intake and Output 05/02/16 00:00 Intake Total 150 ml Balance 150 ml Weight (Pounds): 105 Weight (Ounces): 0.0 Weight (Calculated Kilograms): 47.839182 Constitutional: AAO x 3 well-developed well-nourished Respiratory: No accessory muscle use, other (Diminished air entry over all lung watts; prolonged exp phase; hyperresonance to percussion) Cardiovascular: regular rate-rhythm S1 and S2 systolic murmur (faint MITCHEL at card base) Gastrointestional: No tender, softNo guarding, No rebound, audible bowel sounds Extremities: No clubbing, No cyanosis Neurologic/Psychiatric: oriented x 3 power is 5/5 both on sides Skin: No rash on exposed areas, No ulcerations on exposed areas Results/Procedures: Labs Laboratory Tests 05/01/16 15:04: Troponin I 5.31*H 05/01/16 16:20: Activated Partial Thromboplast Time 110H 05/01/16 21:09: Troponin I 4.81*H 05/02/16 04:07: Alanine Aminotransferase (ALT/SGPT) 15, Albumin 3.5, Alkaline Phosphatase 51, Anion Gap 10, Aspartate Amino Transf (AST/SGOT) 47H, BUN/Creatinine Ratio 10, Blood Urea Nitrogen 7, Calcium Level 8.8, Carbon Dioxide Level 23, Chloride Level 107, Cholesterol Level 159, Creatinine 0.67, Estimat Glomerular Filtration Rate > 60, Glucose Level 74, HDL Cholesterol 61H, Hematocrit 37, Hemoglobin 12.1, LDL Cholesterol Direct 75, Magnesium Level 1.9, Mean Corpuscular Hemoglobin 32, Mean Corpuscular Hemoglobin Concent 33, Mean Corpuscular Volume 98, Mean Platelet Volume 10.0, Platelet Count 285, Potassium Level 3.8, Red Blood Count 3.76L, Red Cell Distribution Width 13.8, Sodium Level 140, Total Bilirubin 0.5, Total Protein 5.5L, Triglycerides Level 102, VLDL Cholesterol 20, White Blood Count 9.7 Laboratory Tests 05/01/16 09:05 05/02/16 04:07 A/P: Assessment: Ac NSTEMI. 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 Now on supplemental oxygen since early Dec 2013 Hyperlipidemia treated chronically with statins, according to the patient Bilat leg swelling, likely related to venous insufficiency and/or calcium channel roc therapy, currently stable Headaches, chronic, for which f/u is with her fam phy Plan: * I again spoke with her in detail regarding cath findings * Also discussed echo findings * Treatment is with aspirin and Plavix and beta-roc and statin * She remains very afraid of oral anticoagulants and does not wish to take them despite a full understanding of considerably elevated risk of thromboembolic stroke without oral anticoag * I reviewed and appreciated Dr Durand's and Dr Anguiano's notes * Increase ambulation * Monitor labs * Advised to quit smoking immediately and completely Clinical Quality Measures AMI/AHF: ASA po Prior to arrival: JESSICA Brown MD FACP FAC CCDS May 02, 2016 09:26
--- NOTE | 2016-05-02 09:32 | CARDIAC CATHETERIZATION ---
PROCEDURE PHYSICIAN: JESSICA CLAY DATE OF PROCEDURE: 05/01/2016 Laura Fierro is an 80-year-old lady who was admitted with acute non-ST elevation myocardial infarction. She has multiple coronary disease risk factors. Cardiac catheterization was carried out after having obtained an informed consent. She was brought to the cardiac catheter laboratory in a fasting state. The right groin was prepared and draped in usual sterile fashion. 1% lidocaine was used for local anesthesia. Modified Seldinger technique was used to advance a 5-Cambodian sheath in the right femoral artery. A 5-Cambodian JL4 catheter was used for left coronary angiography. 5-Cambodian JR4 for the right coronary angiography. A 5-Cambodian pigtail catheter was used for left heart catheterization, left ventricular angiography. 5-Cambodian pigtail catheter was then pulled back to the aortic root and the aortic root angiography was performed. The catheter was removed. Angiography of the right femoral artery was carried out through the sheath. Mynx was used to achieve hemostasis. She tolerated the procedure well. HEMODYNAMICS: Left ventricular end-diastolic pressure following coronary angiography was 14 mmHg. There is no significant pressure gradient on pullback across the aortic valve. Ascending aortic pressure 144/87 with a mean of 111 mmHg. LEFT VENTRICULAR ANGIOGRAPHY: Left ventricular angiography was carried out in the right anterior oblique projection. Global left ventricular systolic function is mildly to moderately impaired. There appears to be posterobasal hypokinesis. Left ventricular ejection fraction is approximately 45%. There does not appear to be significant mitral regurgitation. CORONARY ANGIOGRAPHY: Diffuse coronary calcification is present. Left ventricular coronary artery does not exhibit significant disease. The left anterior descending artery has multiple 50% stenoses in its proximal and mid portions. The left circumflex artery appears to be a vessel that is in the usual position of the ramus intermedius artery. It shows diffuse, mild to moderate disease. The right coronary artery is dominant and extends into what is traditionally the left circumflex territory. The right coronary artery has multiple stenoses up to approximately 40%. AORTIC ROOT ANGIOGRAPHY: Aortic root angiography was performed, primarily to make sure that there was no anomalous left circumflex. No coronaries were seen other than the ones that are described above. There did not appear to be significant aortic root dilatation or ascending aortic aneurysm or dissection. There did not appear to be significant aortic regurgitation. CONCLUSION: 1. Coronary artery disease, moderate, diffuse. 2. Mild to moderate impairment of global left ventricular systolic function with postero-basal hypokinesis and left ventricular ejection fraction of approx 45%. 3. Mild elevation left ventricular end-diastolic pressure. 4. No significant mitral regurgitation. DISCUSSION AND RECOMMENDATIONS: Based on the results of this study, it appears appropriate to continue a conservative regimen. Risk factor modification has been reviewed. Aspirin, clopidogrel, beta roc and statin therapy are being continued. She has again been advised to quit smoking immediately and completely. Job ID: [id number] Dictated Date: 05/01/2016 18:23:45 Desktop Support Manager Date: 05/02/2016 09:21:32 / sai MASON
--- NOTE | 2016-05-02 12:51 | Progress Note (SOAP) ---
Subjective Subjective/Events-last exam Fwup Non-STEMI, COPD, right lung nodule, anxiety. No further chest pain. Feeling okay. Objective Exam Vital Signs Date Time Temp Pulse Resp B/P Pulse Ox O2 Delivery O2 Flow Rate FiO2 05/02/16 11:03 98.6 82 16 128/76 96 Nasal Cannula 1.00 05/02/16 10:17 95 1.00 05/02/16 09:00 76 22 130/77 93 Nasal Cannula 2.00 05/02/16 08:00 84 41 95 Nasal Cannula 2.00 05/02/16 08:00 3.00 05/02/16 07:00 75 05/02/16 07:00 76 14 104/65 Nasal Cannula 2.00 05/02/16 06:42 100 2.00 05/02/16 06:00 63 13 100/58 Nasal Cannula 2.00 05/02/16 05:00 66 13 100/57 Nasal Cannula 2.00 05/02/16 04:00 95 2.00 05/02/16 04:00 69 12 77/45 Nasal Cannula 2.00 05/02/16 04:00 97.2 05/02/16 03:00 71 14 84/49 Nasal Cannula 2.00 05/02/16 02:01 98 2.00 05/02/16 02:00 68 13 90/57 Nasal Cannula 2.00 05/02/16 01:00 76 15 123/60 Nasal Cannula 2.00 05/02/16 01:00 76 05/02/16 00:00 71 14 84/57 96 Nasal Cannula 2.00 05/02/16 00:00 95 2.00 05/02/16 00:00 98.3 05/01/16 23:00 80 27 88/52 95 Nasal Cannula 2.00 05/01/16 22:23 95 2.00 05/01/16 22:17 96 2.00 05/01/16 22:00 64 16 118/75 96 Nasal Cannula 2.00 05/01/16 21:00 67 13 132/76 96 Nasal Cannula 2.00 05/01/16 20:00 95 2.00 05/01/16 20:00 68 14 141/88 96 Nasal Cannula 2.00 05/01/16 20:00 98.6 05/01/16 19:00 64 12 136/88 97 Nasal Cannula 2.00 05/01/16 19:00 64 05/01/16 18:38 146/89 05/01/16 17:41 98.7 76 22 133/76 98 Nasal Cannula 2.50 05/01/16 16:45 65 13 138/76 97 Nasal Cannula 2.50 05/01/16 15:45 70 21 132/78 98 Nasal Cannula 2.50 05/01/16 14:45 70 26 154/82 97 Nasal Cannula 2.50 05/01/16 13:54 97 05/01/16 13:46 96 2.00 05/01/16 13:45 73 12 130/71 98 Nasal Cannula 2.50 05/01/16 13:00 75 I & O 05/02/16 07:00 Intake Total 375 ml Balance 375 ml Capillary Refill : Less Than 3 Seconds General Appearance: No Apparent Distress Neck: Supple Respiratory: Lungs Clear Decreased Breath Sounds Cardiovascular: Regular Rate, Rhythm Systolic Murmur Gastrointestinal: normal bowel sounds non tender soft Extremity: Non Tender No Calf Tenderness No Pedal Edema Neurologic/Psychiatric: Alert Oriented x3 Skin: Ecchymosis (right groin but soft and nontender) Results Lab Laboratory Tests 05/01/16 15:04: Troponin I 5.31*H 05/01/16 16:20: Activated Partial Thromboplast Time 110H 05/01/16 21:09: Troponin I 4.81*H 05/02/16 04:07: Alanine Aminotransferase (ALT/SGPT) 15, Albumin 3.5, Alkaline Phosphatase 51, Anion Gap 10, Aspartate Amino Transf (AST/SGOT) 47H, BUN/Creatinine Ratio 10, Blood Urea Nitrogen 7, Calcium Level 8.8, Carbon Dioxide Level 23, Chloride Level 107, Cholesterol Level 159, Creatinine 0.67, Estimat Glomerular Filtration Rate > 60, Glucose Level 74, HDL Cholesterol 61H, Hematocrit 37, Hemoglobin 12.1, LDL Cholesterol Direct 75, Magnesium Level 1.9, Mean Corpuscular Hemoglobin 32, Mean Corpuscular Hemoglobin Concent 33, Mean Corpuscular Volume 98, Mean Platelet Volume 10.0, Platelet Count 285, Potassium Level 3.8, Red Blood Count 3.76L, Red Cell Distribution Width 13.8, Sodium Level 140, Total Bilirubin 0.5, Total Protein 5.5L, Triglycerides Level 102, VLDL Cholesterol 20, White Blood Count 9.7 Assessment/Plan Assessment/Plan Assess & Plan/Chief Complaint 1. Non-STEMI-- cardiac cath yesterday showed no significant blockages so medical management 2. COPD--restart home meds, oxygen, SVNS 3. Right Lung Nodule--CT scan of chest shows small diaphragmatic hernia on right and 2 small lung nodules on left so told patient these would need recheck in 3mos with a CT scan of chest 4. Anxiety--resume home meds 5. History of Atrial Fibrillation--in NSR 6. Alcohol Abuse--Thiamin and Folic acid and observe for withdrawal Diagnosis/Problems: Clinical Quality Measures AMI/AHF: ASA po Prior to arrival: No DVT/VTE Risk/Contraindication: Risk Factor Score Per Nursin RFS Level Per Nursing on Admit: 2=Moderate CHI SANTANA DO May 02, 2016 12:50 pm
[2016-05-02] MEDS: ENOXAPARIN 40 MG/0.4 ML (LOVENOX) SYR SC SCH (20:45)
[2016-05-02] MEDS: ATORVASTATIN 40 MG (LIPITOR) TABLET PO SCH (20:45)
[2016-05-02] MEDS: ALPRAZolam 0.25 MG (XANAX) TAB PO PRN (20:45)
[2016-05-02] MEDS: ACETAMINOPHEN 325 MG TABLET/CAPLET (TYLENOL) PO PRN (20:46)
[2016-05-03] MEDS: NS IV 1000 ML 1,000 ML IV SCH ×2 (00:26→10:26)
[2016-05-03] MEDS: RT-ALBUTEROL/IPRATROPIUM 3 ML (DUONEB) VIAL INH SCH ×4 (02:32→13:55)
[2016-05-03 04:00] VITALS: BP 103/54
[2016-05-03] MEDS: THIAMINE 100 MG (VITAMIN B-1) TAB PO SCH (06:30)
[2016-05-03] MEDS: RT-ADVAIR HFA 115/21 MCG PER PUFF IH SCH (06:34)
--- NOTE | 2016-05-03 07:20 | Pulmonary Progress Note ---
Subjective Subjective/Events-last exam No complications noted. Pt feels improved. Exam Exam Vital Signs Date Time Temp Pulse Resp B/P Pulse Ox O2 Delivery O2 Flow Rate FiO2 05/03/16 06:41 0.50 05/03/16 06:34 95 0.50 05/03/16 04:00 97.4 65 16 103/54 95 Nasal Cannula 1.00 05/03/16 04:00 95 1.00 05/03/16 02:32 1.00 05/03/16 01:00 70 05/03/16 00:00 94 1.00 05/02/16 23:57 98.9 71 14 95/62 94 Nasal Cannula 1.00 05/02/16 21:20 1.00 05/02/16 21:15 94 1.00 05/02/16 20:00 96 1.00 05/02/16 20:00 98.8 73 16 117/67 96 Nasal Cannula 1.00 05/02/16 19:00 76 05/02/16 16:55 2.00 05/02/16 16:00 99.4 81 16 117/90 96 Nasal Cannula 1.00 05/02/16 15:22 93 1.00 05/02/16 14:00 99.4 05/02/16 13:22 99.4 05/02/16 13:00 73 05/02/16 12:40 2.00 05/02/16 11:03 98.6 82 16 128/76 96 Nasal Cannula 1.00 05/02/16 10:17 95 1.00 05/02/16 09:00 76 22 130/77 93 Nasal Cannula 2.00 05/02/16 08:00 84 41 95 Nasal Cannula 2.00 05/02/16 08:00 3.00 I & O 05/03/16 07:00 Intake Total 2590 ml Output Total 600 ml Balance 1990 ml General Appearance: No Apparent Distress HEENT: PERRL/EOMI Normal ENT Inspection Neck: Supple Respiratory: Lungs Clear Decreased Breath Sounds Cardiovascular: Regular Rate, Rhythm Systolic Murmur Capillary Refill: Less Than 3 Seconds Gastrointestinal: normal bowel sounds non tender soft Extremity: Non Tender No Calf Tenderness No Pedal Edema Neurologic/Psychiatric: Alert Oriented x3 Skin: Ecchymosis (right groin but soft and nontender) Results Lab Laboratory Tests 05/01/16 09:05 05/02/16 04:07 Assessment/Plan Assessment/Plan NSTEMI COPD - with home oxygen -- stable -Not on steroids -SVNs Diaphragmatic hernia hx of AFib ETOH use Pt is okay for discharge from pulmonary standpoint. Will have her f/u with me in office in 3-4 wks. Clinical Quality Measures AMI/AHF: ASA po Prior to arrival: No DVT/VTE Risk/Contraindication: Risk Factor Score Per Nursin RFS Level Per Nursing on Admit: 2=Moderate JASON SCALES DO May 03, 2016 07:20
[2016-05-03] MEDS: CLOPIDOGREL 75 MG (PLAVIX) TABLET PO SCH (08:39)
[2016-05-03] MEDS: FOLIC ACID 1 MG TAB PO SCH (08:39)
[2016-05-03] MEDS: ASPIRIN E.C. 81 MG (ECOTRIN) TAB PO SCH (08:39)
[2016-05-03] MEDS: meTOproloL SUCCINATE 50 MG (TOPROL XL) TAB PO SCH (08:39)
[2016-05-03] MEDS: ACETAMINOPHEN 325 MG TABLET/CAPLET (TYLENOL) PO PRN (08:42)
--- NOTE | 2016-05-03 10:00 | Progress Note (SOAP) ---
Subjective Subjective/Events-last exam Fwup Non-STEMI, COPD, right lung nodule, anxiety. Requests maintenance med for anxiety. I did discuss alcohol cessation vs max of 2oz total in a day with her and daughter due to all the meds she takes. Objective Exam Vital Signs Date Time Temp Pulse Resp B/P Pulse Ox O2 Delivery O2 Flow Rate FiO2 05/03/16 07:00 68 05/03/16 06:41 0.50 05/03/16 06:34 95 0.50 05/03/16 04:00 97.4 65 16 103/54 95 Nasal Cannula 1.00 05/03/16 04:00 95 1.00 05/03/16 02:32 1.00 05/03/16 01:00 70 05/03/16 00:00 94 1.00 05/02/16 23:57 98.9 71 14 95/62 94 Nasal Cannula 1.00 05/02/16 21:20 1.00 05/02/16 21:15 94 1.00 05/02/16 20:00 96 1.00 05/02/16 20:00 98.8 73 16 117/67 96 Nasal Cannula 1.00 05/02/16 19:00 76 05/02/16 16:55 2.00 05/02/16 16:00 99.4 81 16 117/90 96 Nasal Cannula 1.00 05/02/16 15:22 93 1.00 05/02/16 14:00 99.4 05/02/16 13:22 99.4 05/02/16 13:00 73 05/02/16 12:40 2.00 05/02/16 11:03 98.6 82 16 128/76 96 Nasal Cannula 1.00 05/02/16 10:17 95 1.00 I & O 05/03/16 07:00 Intake Total 2590 ml Output Total 600 ml Balance 1990 ml Capillary Refill : Less Than 3 Seconds General Appearance: No Apparent Distress Respiratory: Lungs Clear Cardiovascular: Regular Rate, Rhythm Systolic Murmur Gastrointestinal: normal bowel sounds non tender soft Extremity: Non Tender No Calf Tenderness No Pedal Edema Neurologic/Psychiatric: Alert Oriented x3 Assessment/Plan Assessment/Plan Assess & Plan/Chief Complaint 1. Non-STEMI-- cardiac cath showed no significant blockages so medical management and DC home today per cardiology 2. COPD--back on home meds, oxygen, SVNS 3. Right Lung Nodule--CT scan of chest shows small diaphragmatic hernia on right and 2 small lung nodules on left so told patient these would need recheck in 3mos with a CT scan of chest 4. Anxiety--start paxil on discharge 5. History of Atrial Fibrillation--in NSR 6. Alcohol Abuse--Thiamin and Folic acid and observe for withdrawal, discussed cessation vs max of 2oz a day with patient and daughter Clinical Quality Measures AMI/AHF: ASA po Prior to arrival: No DVT/VTE Risk/Contraindication: Risk Factor Score Per Nursin RFS Level Per Nursing on Admit: 2=Moderate CHI SANTANA DO May 03, 2016 10:00
[2016-05-03] MEDS ORDERED: PARO12.521 PO (10:02)
[2016-05-03] MEDS ORDERED: CLOP75TA28 PO (10:39)
[2016-05-03] MEDS ORDERED: ATOR40TA PO (10:39)
[2016-05-03] MEDS ORDERED: ASPI-983 PO (10:39)
[2016-05-03] MEDS ORDERED: METO-272 PO (10:39)
--- NOTE | 2016-05-03 10:40 | Discharge Inst-Cardiology ---
Discharge Inst-Cardiac Discharge Medications New Medications: Paroxetine HCl (Paxil Cr) 12.5 Mg Tab.er.24h 12.5 MG PO HS #30 TAB Aspirin (Aspirin EC) 81 Mg Tablet.dr 81 MG PO DAILY #120 Ref 3 TAB Atorvastatin Calcium (Lipitor) 40 Mg Tablet 40 MG PO HS #90 Ref 3 TAB Clopidogrel Bisulfate (Clopidogrel) 75 Mg Tablet 75 MG PO DAILY #90 Ref 3 TAB Metoprolol Succinate (Metoprolol Succinate) 50 Mg Tab.er.24h 50 MG PO DAILY #30 Ref 5 TAB Continued Medications: Acetaminophen (Tylenol Extra Strength) 500 Mg Tablet 500 MG PO Q4H PRN PAIN Calcium Carbonate/Vitamin D3 (Caltrate 600 + D Tablet) 1 Each Tablet 1 TAB PO BID Fluticasone/Salmeterol (Advair Hfa 115-21 Mcg Inhaler) 12 Gm Hfa.aer.ad 2 PUFF IH BID GM Multivit-Min/FA/Lycopene/Lut (Centrum Silver Tablet) 1 Each Tablet 1 TAB PO DAILY Tiotropium [place] (Spiriva) 1 Inh Aerp 2 PUFF IH DAILY INHALER Discontinued Medications: Alprazolam (Xanax) 0.25 Mg Tablet 0.25 MG PO BID PRN ANXIETY TAB Apixaban (Eliquis) 2.5 Mg Tablet 2.5 MG PO DAILY LAST FILLED 10/16/15 #60 Ascorbic Acid (Vitamin C) 1,000 Mg Tablet 1000 MG PO HS Digoxin (Digoxin) 125 Mcg Tablet 125 MCG PO DAILY TAB Losartan Potassium (Losartan Potassium) 100 Mg Tablet 100 MG PO DAILY TAB Simvastatin (Simvastatin) 10 Mg Tablet 10 MG PO HS Sulfamethoxazole/Trimethoprim (Bactrim Ds Tablet) 1 Each Tablet 1 TAB PO BID FILLED 04/29/16 #14 FOR A 7 DAY THERAPY TAB New, Converted or Re-Newed RX: Transmitted to Pharmacy Patient Instructions Patient Instructions: Follow up appt to see Dr. Zaragoza in a week LUIS MAYS May 03, 2016 10:40
--- NOTE | 2016-05-03 13:18 | Progress Note-Cardiology ---
Cardiology SOAP Progress Note Subjective: No cp Shortness of breath improved Denies palp or syncope or leg swelling Objective: I&O/Vital Signs Vital Sign - Last 12Hours 05/03/16 05/03/16 05/03/16 05/03/16 02:32 04:00 04:00 06:34 Temp 97.4 Pulse 65 Resp 16 B/P 103/54 Pulse Ox 95 95 95 O2 Delivery Nasal Cannula O2 Flow Rate 1.00 1.00 1.00 0.50 05/03/16 05/03/16 05/03/16 05/03/16 06:41 07:00 10:51 12:53 Pulse 68 71 Pulse Ox 96 O2 Flow Rate 0.50 1.00 Intake and Output 05/03/16 00:00 Intake Total 950 ml Output Total 600 ml Balance 350 ml Weight (Pounds): 105 Weight (Ounces): 0.0 Weight (Calculated Kilograms): [id number] Constitutional: AAO x 3 well-developed well-nourished Respiratory: No accessory muscle use, other (Diminished air entry over all lung watts; prolonged exp phase; hyperresonance to percussion) Cardiovascular: regular rate-rhythm S1 and S2 systolic murmur (faint MITCHEL at card base) Gastrointestional: No tender, softNo guarding, No rebound, audible bowel sounds Extremities: No clubbing, No cyanosis Neurologic/Psychiatric: oriented x 3 power is 5/5 both on sides Skin: No rash on exposed areas, No ulcerations on exposed areas Results/Procedures: Labs Laboratory Tests 05/02/16 04:07 A/P: Assessment: Ac NSTEMI. 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 Now on supplemental oxygen since early Dec 2013 Hyperlipidemia treated chronically with statins, according to the patient Bilat leg swelling, likely related to venous insufficiency and/or calcium channel roc therapy, currently stable Headaches, chronic, for which f/u is with her [facility] phy Plan: * I had a detailed discussion with her and her daughter regarding findings during this hosp and treatments rendered * I reviewed the pros and cons of her meds * She is still afraid of oral anticoag and does not wish to be on those * Advised to quit smoking immediately and completely * Close outpatient f/u is advised for now Clinical Quality Measures AMI/AHF: ASA po Prior to arrival: JESSICA Brown MD FACP FACC CCDS May 03, 2016 13:17
--- NOTE | 2016-05-03 13:23 | Cardiology Discharge Summary ---
Diagnosis/Chief Complaint Date of Admission May 01, 2016 at 10:58 Date of Discharge 05/03/16 Final/Discharge Diagnosis Ac NSTEMI. 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 Now on supplemental oxygen since early Dec 2013 Hyperlipidemia treated chronically with statins, according to the patient Bilat leg swelling, likely related to venous insufficiency and/or calcium channel roc therapy, currently stable Headaches, chronic, for which f/u is with her fam phy Chief Complaint/HPI Chief Complaint/HPI CC: Chest discomfort HPI: 80 yo woman with midsternal discomfort, waxing and waning, but not fully resolved for approx 18 hours prior to presentation. Was mild to mod, radiating to arms, pressure-like, not associated with other symptoms. Currently, no chest discomfort. Has chronic BABCOCK, unchanged in the recent past. Denies palp or syncope. Denies recent cough, fever, chill, ankle swelling Please refer to our progress note of 05/03/16 for more details and physical exam at the time of discharge Time spent in interview, physical exam, eval, discussion, instructions and discharge meds, and documentation 30 min: 12:57 - 1:27 pm Discharge Summary Procedures Card cath on 05/01/16 Echo on 05/02/16 Discussion & Recommendations Follow up appt.: F/u at our office next week F/u with Aurelia Durand and Annmarie as per their recs Continue to avoid smoking Dicharge Diet: Cardiac Diet Home Medications Reviewed patient Home Medication Reconciliation Form Discharge Home Medications: Reviewed and agree with Discharge Medication list on patient's Discharge Instruction sheet Condition at discharge Stable Clinical Quality Measures AMI/AHF: ASA po Prior to arrival: No DVT/VTE Risk/Contraindication: Risk Factor Score Per Nursin RFS Level Per Nursing on Admit: 2=Moderate JESSICA CLAY MD FACP FAC CCDS May 03, 2016 13:23
[2016-05-03 14:31] VITALS: BP 103/54
--- NOTE | 2016-05-09 08:35 | ECHOCARDIOGRAPHY REPORT ---
PROCEDURE PHYSICIAN: JESSICA ZARAGOZA DATE OF PROCEDURE: 05/02/2016 TWO DIMENSIONAL ECHOCARDIOGRAM REPORT PRIMARY PHYSICIAN: Dr. Durand OTHER PHYSICIAN: REFERRING PHYSICIAN: ORDERING PHYSICIAN: Dr. Zaragoza INDICATION FOR THE PROCEDURE: 1. Non-ST elevation myocardial infarction. 2. Shortness of breath. MEASUREMENTS DERIVED VALUES LV DIAMETER (LAX) NORMALS NORMALS Diastolic 5.2 (3.6-5.2) Eject. Fract. (60%+/-6%) Systolic (2.3-3.9) Diastolic Vol. % Shortening (0.22-0.42) Systolic Vol. Aortic Root 2.8 IVS THICKNESS Diastolic 0.7 (0.6-1.1) LVPW THICKNESS Diastolic 0.8 (0.6-1.1) LA DIAMETER Systolic 3.6 (2.1-3.7) DESCRIPTION: Two-dimensional echocardiography shows normal global left ventricular systolic function with normal regional wall motion. Aortic, mitral and tricuspid valve leaflets show good leaflet excursion. There is no significant pericardial effusion. Doppler imaging shows trivial to mild mitral, pulmonic and tricuspid regurgitation. Pulmonary artery systolic pressure is estimated to be 35 to 40 mmHg. There is no Doppler evidence of significant valvular stenosis. Mitral inflow is consistent with grade I diastolic dysfunction of the left ventricle. There is no Doppler evidence of significant valvular stenosis. There is no evidence of significant intracardiac shunt on this transthoracic echocardiographic study. Inferior vena cava does not appear dilated. CONCLUSIONS: 1. Normal global left ventricular systolic function with an ejection fraction of approximately 60%. 2. Trivial to mild mitral, tricuspid and pulmonic regurgitation. 3. Pulmonary artery systolic pressure is estimated to be 35 to 40 mmHg. 4. Mild diastolic dysfunction of the left ventricle. Job ID: [id number] Dictated Date: 05/08/2016 17:47:31 Inner Tube Tuber Machine Operator Date: 05/09/2016 08:31:15 / gladys
== END 2016-05-03 14:20 | disposition home or self-care (01) | DRG 282 ==
LOC: EDUNIT# 08:58 → ER 09:00 → ICU 10:58
PROVIDERS: ADMIT Internal Medicine Cardiovascular Disease; ATTEND Internal Medicine Cardiovascular Disease
PROC: 4A023N7 Measurement of Cardiac Sampling and Pressure, Left Heart, Percutaneous Approach (ICD-10-PCS; principal; 2016-05-01)
PROC: B2151ZZ Fluoroscopy of Left Heart using Low Osmolar Contrast (ICD-10-PCS; 2016-05-01)
PROC: B2111ZZ Fluoroscopy of Multiple Coronary Arteries using Low Osmolar Contrast (ICD-10-PCS; 2016-05-01)
PROC: B3101ZZ Fluoroscopy of Thoracic Aorta using Low Osmolar Contrast (ICD-10-PCS; 2016-05-01)
DX: I21.4 Non-ST elevation (NSTEMI) myocardial infarction (principal); I25.10 Atherosclerotic heart disease of native coronary artery without angina pectoris; I49.5 Sick sinus syndrome; I48.91 Unspecified atrial fibrillation; R91.1 Solitary pulmonary nodule; I10 Essential (primary) hypertension; F10.20 Alcohol dependence, uncomplicated; J44.9 Chronic obstructive pulmonary disease, unspecified; E78.5 Hyperlipidemia, unspecified; R51 Headache; F41.9 Anxiety disorder, unspecified; K44.9 Diaphragmatic hernia without obstruction or gangrene; M79.89 Other specified soft tissue disorders; Z87.891 Personal history of nicotine dependence
CPT/HCPCS: 36415; 71010; 71250; 80053; 80061; 80162; 83735; 83874; 84484; 85025; 85027; 85610; 85730; 93005; 93041; 93306; 93458; 93567; 94640; 94664; 96374; 96375

== ENCOUNTER 2016-05-13 11:04 | Emergency (ER) | payer MEDICARE, BC ==
[~2016-05-13] VITALS: Ht 160 cm; Wt 47.6 kg
[~2016-05-13 11:04] MED LIST changes: +ALPR0.25 PO; +ASPI-983 PO; +ATOR40TA PO; +CLOP75TA28 PO; +METO-272 PO; +PARO12.521 PO; +SULF1TAB35 PO; +TIOT18CA2 IH
--- OUTSIDE RECORDS SUMMARY | 2016-05-13 11:11 | XMS REPORT | Continuity of Care Document ---
Author Author [facility] Organization [facility] Address Unknown Phone Unavailable Care Team Providers Care Bat Boy/Girl Name Role Phone CHI SANTANA DO PCP Insurance Providers Payer Name Policy Number Subscriber Name Relationship [employer] [id number] Liv Fierro 18 Self / Same As Patient [facility] [id number] Liv Fierro 18 Self / Same As Patient Advance Directives Directive Response Recorded Date/Time Advance Directives No 06/26/15 6:18pm Health Care Power of Concrete Paving Machine Operator Y has from another state, in black [...] Discharge/Depart Date Attending Provider Discharged Recurring [facility] 01/11/16 10:00am 11:59pm JASON SCALES DO
--- NOTE | 2016-05-13 13:08 | ED Integumentary General ---
General Chief Complaint: Skin/Wound Problems Stated Complaint: BLEEDING ON SIDE OF HEAD Nursing Triage Note: PT REPORTS SHE WAS WASHING HER HAIR THIS AM WHEN SHE NOTICED BLOOD IN HER HAIRLINE AROUND HER R UATSDIN. SHE STATES SHE THINKS SHE SCRATCHED A SUPERFICIAL VEIN CAUSING IT TO BLEED. SHE DENIES ANY INJURY. Source: patient, family Exam Limitations: no limitations History of Present Illness Time seen by provider: 12:46 Initial Comments As above and below. Can't get it to stop bleeding even p/ prolonged periods of pressure. Is on Plavix and ASA. Timing/Duration: just prior to arrival Location: scalp (right mormon area near hairline) Possible Cause: other (thinks she scratched a blood vessel c/ her fingernails while washing her hair.) Associated Symptoms: denies symptoms Allergies and Home Medications Allergies Coded Allergies: No Known Drug Allergies (Unverified , 06/26/15) Home Medications Acetaminophen 500 Mg Tablet, 500 MG PO Q4H PRN for PAIN, (Reported) Aspirin 81 Mg Tablet.dr, 81 MG PO DAILY, #120 Ref 3 Prescribed by: LUIS MAYS on 05/03/16 1039 Atorvastatin Calcium 40 Mg Tablet, 40 MG PO HS, #90 Ref 3 Prescribed by: LUIS MAYS on 05/03/16 1039 Calcium Carbonate/Vitamin D3 1 Each Tablet, 1 TAB PO BID, (Reported) Clopidogrel Bisulfate 75 Mg Tablet, 75 MG PO DAILY, #90 Ref 3 Prescribed by: LUIS MAYS on 05/03/16 1039 Fluticasone/Salmeterol 12 Gm Hfa.aer.ad, 2 PUFF IH BID, (Reported) Metoprolol Succinate 50 Mg Tab.er.24h, 50 MG PO DAILY, #30 Ref 5 Prescribed by: LUIS MAYS on 05/03/16 1039 Multivit-Min/FA/Lycopene/Lut 1 Each Tablet, 1 TAB PO DAILY, (Reported) Paroxetine HCl 12.5 Mg Tab.er.24h, 12.5 MG PO HS, #30 Prescribed by: CHI SANTANA on 05/03/16 1002 Tiotropium Fowler 1 Inh Aerp, 2 PUFF IH DAILY, (Reported) Constitutional: see HPI Skin: see HPI, other (bleeding from blood vessel right mormon) All Other Systems Reviewed Negative Unless Noted: Yes (Negative excepted noted.) Past Dzvfsdp-Dsjgoz-Svqend Hx Patient Social History Alcohol Use: Regular Use Recreational Drug Use: No Smoking Status: Former Smoker Type Used: Cigarettes 2nd Hand Smoke Exposure: No Recent Foreign Travel: No Contact w/Someone Who Travel: No Recent Infectious Disease Expo: No Recent Hopitalizations: No Immunizations Up To Date Tetanus Booster (TDap): Less than 5yrs Date of Pneumonia Vaccine: Jan 01, 2009 Date of Influenza Vaccine: Dec 02, 2015 Seasonal Allergies Seasonal Allergies: No Surgeries HX Surgeries: Yes (aneurysm repair in [address]) Surgeries: Appendectomy, Tonsillectomy Respiratory Hx Respiratory Disorders: Yes Respiratory Disorders: COPD, Emphysema Cardiovascular Hx Cardiac Disorders: Yes Cardiac Disorders: Atrial Fibrillation, Hypertension Neurological Hx Neurological Disorders: Yes (anurysm repair 2000) Reproductive System Hx Reproductive Disorders: No Sexually Transmitted Disease: No HIV/AIDS: No Genitourinary Hx Genitourinary Disorders: No Gastrointestinal Hx Gastrointestinal Disorders: No Musculoskeletal Hx Musculoskeletal Disorders: Yes ("not significant" ) Musculoskeletal Disorders: Arthritis Endocrine Hx Endocrine Disorders: No HEENT HX ENT Disorders: Yes HEENT Disorders: Cataract Hearing Impairment: Hard of Hearing Cancer Hx Cancer: No Psychosocial Hx Psychiatric Problems: Yes Behavioral Health Disorders: Anxiety Integumentary HX Skin/Integumentary Disorder: No Blood Transfusions Hx Blood Disorders: No Adverse Reaction to a Blood Tr: No Family Medical History Significant Family History: No Pertinent Family Hx Family Medial History: Physical Exam Vital Signs Capillary Refill : Less Than 3 Seconds General Appearance: WD/WN, no apparent distress HEENT: other (see below under skin regarding her condition) Cardiovascular: regular rate, rhythm Respiratory: no respiratory distress Neurologic/Psychiatric: no motor/sensory deficits, alert, normal mood/affect, oriented x 3 Skin: warm/dry, other (has a small superficial blood vessel in right mormon area near her hairline that is bleeding. Did get it to stop using silver nitrate. Patient tolerated the procedure well.) Progress/Results/Core Measures Results/Orders Vital Signs/I&O Blood Pressure Mean: 95 Departure Impression Impression: Primary Impression: Bleeding abrasion secondary to Plavix Disposition: 01 HOME, SELF-CARE Condition: Improved Departure-Patient Inst. Decision time for Depature: 13:08 Referrals: CHI SANTANA DO (PCP/Family) Primary Care Physician Patient Instructions: Skin Abrasions (DC) BELINDA BURNHAM DO May 13, 2016 13:08
[2016-05-13 13:12] VITALS: BP 138/74
== END 2016-05-13 13:12 | disposition home or self-care (01) ==
LOC: EDUNIT# 11:04 → ER 11:07
DX: S00.01XA Abrasion of scalp, initial encounter (principal); I10 Essential (primary) hypertension; J44.9 Chronic obstructive pulmonary disease, unspecified; I48.2 Chronic atrial fibrillation; Z79.82 Long term (current) use of aspirin; Z79.02 Long term (current) use of antithrombotics/antiplatelets; Z79.899 Other long term (current) drug therapy; X58.XXXA Exposure to other specified factors, initial encounter; Y99.8 Other external cause status
CPT/HCPCS: 99281

== ENCOUNTER 2016-05-14 13:41 | Outpatient (CLI) | payer MEDICARE, BC ==
--- OUTSIDE RECORDS SUMMARY | 2016-05-14 13:44 | XMS REPORT | Continuity of Care Document ---
Author Author [facility] Organization [facility] Address Unknown Phone Unavailable Care Team Providers Care Double Back Operator Name Role Phone CHI SANTANA DO PCP Insurance Providers Payer Name Policy Number Subscriber Name Relationship Wps Medicare [id number] Liv Fierro 18 Self / Same As Patient [facility] [id number] Liv Fierro 17 Self / Same As Patient Advance Directives Directive Response Recorded Date/Time Advance Directives No 06/26/15 6:18pm Health Care Power of Beader Tender Y has from another state, in black [...] Discharge/Depart Date Attending Provider Discharged Recurring [facility] 01/11/16 10:00am 11:59pm JASON SCALES DO
--- NOTE | 2016-05-14 14:25 | Diagnostic Imaging Report ---
EXAMINATION: Right groin duplex arterial ultrasound. INDICATION: Right groin swelling status post cardiac catheter on 05/01/16. FINDINGS: There is a pseudoaneurysm measuring 2.6 x 1.9 x 2.1 CM seen in the right groin arising from the INSOLE REINFORCER. The INSOLE REINFORCER, the SFA and profunda arteries are all patent with color flow seen. 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 The findings were discussed with Dr. Zaragoza and the patient will be offered a thrombin injection treatment. Dictated by: Dictated on workstation # [id number]
[2016-05-14] MEDS ORDERED: THROMBIN SPRAY KIT 5,000 UNIT VIAL TP ONE (14:30)
[2016-05-14] MEDS ORDERED: LIDOCAINE 1% INJ 20 ML (XYLOCAINE) VIAL ONE (15:09)
[2016-05-14 15:40] VITALS: BP 159/78
[2016-05-14 15:50] VITALS: BP 155/77
--- NOTE | 2016-05-14 16:54 | Diagnostic Imaging Report ---
Ultrasound-guided thrombin injection for groin pseudoaneurysm. 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 Physical examination reveals pulsatile nodule in the right groin. There is a very weak pulse in the dorsalis pedis and nonpalpable pulse in the posterior tibial artery. The feet are slightly red with continuous probably related to chronic peripheral arterial disease. Consent: The procedure is explained to the patient with risks and benefits including thrombus embolization into the distal vessels in the leg. The patient questions were answered and informed consent is obtained. The patient was informed of the possibility of distal embolization of thrombin or clot being the main potential complication of this procedure. In addition, possibility of reperfusion of this the pseudoaneurysm was also discussed. ANESTHESIA: 1% lidocaine GUIDANCE: Ultrasound FINDINGS: Preliminary ultrasound examination of the groin demonstrates a pseudoaneurysm measuring 2.6 cm in size in the dominant locule with a smaller secondary lobule deeper to it. There is to and fro typical flow pattern seen with a narrow neck. PROCEDURE: After sterile preparation and draping, and utilizing ultrasound guidance an appropriate approach is selected away from the neck of the aneurysm. 1% lidocaine is utilized. A 25-gauge needle is utilized for introduction underlying ultrasound guidance into the pseudoaneurysm cavity away from the neck communication with the artery. Imaging demonstrating the location of the needle tip is documented. Slow injection of thrombin is performed under live ultrasound color Doppler visualization. Prompt thrombosis filling the pseudoaneurysm cavity is seen. Injection continued until complete thrombosis seen. Total amount of 600 international units of bovine thrombin. The underlying right common femoral artery appear similarly patent after the procedure with color Doppler flow. The patient tolerated the procedure well. There is no change in the distal pulses. No immediate complications. IMPRESSION: Successful ultrasound-guided thrombin injection of right groin pseudoaneurysm, with complete obliteration of its lumen with thrombus demonstrated. Followup vascular ultrasound within the following few days. Be performed to rule out reperfusion of the pseudoaneurysm as clinically warranted. Dictated by: Dictated on workstation # [id number]
== END 2016-05-14 18:45 | disposition home or self-care (01) ==
LOC: RAD 13:41 → 4TH 15:40 → RAD 18:45
PROVIDERS: ATTEND Internal Medicine Cardiovascular Disease
DX: I72.4 Aneurysm of artery of lower extremity (principal); I25.10 Atherosclerotic heart disease of native coronary artery without angina pectoris; I48.0 Paroxysmal atrial fibrillation; J43.8 Other emphysema; R06.09 Other forms of dyspnea
CPT/HCPCS: 36002; 93926

== ENCOUNTER → 2016-09-05 | Outpatient (CLI) | payer MEDICARE ==
--- NOTE | 2016-09-05 14:29 | Diagnostic Imaging Report ---
PROCEDURE: CT chest without contrast. TECHNIQUE: Multiple contiguous axial images were obtained through the chest without the use of intravenous contrast. INDICATION: COPD. Hypoxia. COMPARISON: 05/02/16 FINDINGS: There are nodular densities seen in the left lung base measuring around 1 cm each without change from 05/02/2016 exam likely related to scarring. There is mild groundglass consolidation in the medial aspect of the left lower lobe, may relate to pneumonitis. A 5 mm nodule is seen in the right upper lobe which appears unchanged. There are background emphysema changes, worst in the upper lobes. There is normal cardiac size and normal caliber of the thoracic aorta. There is no mediastinal mass. No mediastinal or hilar or axillary significantly enlarged nodes identified. There is a fat-containing medial right diaphragmatic hernia seen. The osseous structures demonstrate prominent degenerative changes in the mid and lower thoracic spine levels with mild left convexity scoliotic curvature centered around the lower thoracic spine. IMPRESSION: 1. Stable nodular densities most prominent in the left lung base, of around 1 cm in size probably related to scarring. Another followup exam in 9 months is suggested to prove further stability. 2. Mild groundglass consolidation in the medial aspect of the left lower lobe may relate to atypical infection or pneumonitis. 3. Emphysema. Dictated by: Dictated on workstation # [id number]
== END ==
LOC: RAD 12:54
PROVIDERS: ATTEND Nurse Practitioner Family
DX: J43.8 Other emphysema (principal); R91.8 Other nonspecific abnormal finding of lung field; R06.09 Other forms of dyspnea; F17.201 Nicotine dependence, unspecified, in remission
CPT/HCPCS: 71250

== ENCOUNTER → 2016-12-19 | Outpatient (CLI) | payer MEDICARE, BC | LOC: CARD 12:40 | PROVIDERS: ATTEND Internal Medicine Cardiovascular Disease | DX: I25.5 Ischemic cardiomyopathy (principal); I25.10 Atherosclerotic heart disease of native coronary artery without angina pectoris; I65.23 Occlusion and stenosis of bilateral carotid arteries; J43.8 Other emphysema; I10 Essential (primary) hypertension; I48.0 Paroxysmal atrial fibrillation; Z72.0 Tobacco use | CPT/HCPCS: 93306 ==

== ENCOUNTER 2017-03-15 15:14 | Emergency (ER) | payer MEDICARE, BC ==
[~2017-03-15] VITALS: Ht 160 cm; Wt 51.7 kg
[~2017-03-15 15:14] MED LIST changes: -METO-272 PO; +METO-370 PO
--- NOTE | 2017-03-15 16:13 | Diagnostic Imaging Report ---
PROCEDURE: CT head, face, and cervical spine without contrast. TECHNIQUE: Multiple contiguous axial images were obtained through the head, neck, and facial bones without the use of intravenous contrast. Sagittal and coronal reformations through the cervical spine and facial bones were also performed. INDICATION: Fall. COMPARISON: None. FINDINGS: CT head: There has been prior craniotomy on the right. Age-related cerebral volume loss and chronic small vessel ischemic changes are present. There is a focus of encephalomalacia in the right temporal lobe, likely postoperative. There is no focus of acute ischemia or hemorrhage. 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 Osseous structures are intact. IMPRESSION: 1. No acute intracranial abnormality. 2. Status post aneurysm clipping. CT face: There is a minimally displaced right nasal bone fracture. There is some deviation of the nasal septum which appears chronic. The orbits are intact. Paranasal sinuses are clear. No additional facial fracture is identified. The mandible is grossly unremarkable. IMPRESSION: Minimally displaced right nasal bone fracture. CT cervical spine: Alignment is normal. There is no subluxation or fracture. Moderate diffuse degenerative changes are present. There is no osseous lesion. Carotid artery calcifications are present. IMPRESSION: No traumatic malalignment or fracture. Dictated by: Dictated on workstation # [id number]
[2017-03-15] MEDS ORDERED: TETANUS,DIPTH,PERTUSS P/F (BOOSTRIX) 0.5 ML VIAL IM STA (17:27)
[2017-03-15] MEDS ORDERED: FLUCONAZOLE 150 MG TABLET (ED ONLY) PO ONE (17:45)
[2017-03-15] MEDS ORDERED: NYSTATIN ORAL SUSP 5 ML UDC PO ONE (17:45)
--- NOTE | 2017-03-15 17:48 | ED Head Injury ---
General Chief Complaint: Trauma-Non Activation Stated Complaint: FALL YESTERDAY/BRUISING ON FACE Nursing Triage Note: Patient advises she awoke on the bathroom floor today and is unsure what happened. She has noted facial bruising around the eyes and cheeks. She advises she is on eliquis and did loose consciousness. Source: patient, family (daughter) History of Present Illness Initial Comments Patient reports a frequent history of near syncope Allergies and Home Medications Allergies Coded Allergies: No Known Drug Allergies (Unverified , 06/26/15) Home Medications Acetaminophen 500 Mg Tablet, 500 MG PO Q4H PRN for PAIN, (Reported) Aspirin 81 Mg Tablet.dr, 81 MG PO DAILY, #120 Ref 3 Prescribed by: LUIS MAYS on 05/03/16 1039 Atorvastatin Calcium 40 Mg Tablet, 40 MG PO HS, #90 Ref 3 Prescribed by: LUIS MAYS on 05/03/16 1039 Calcium Carbonate/Vitamin D3 1 Each Tablet, 1 TAB PO BID, (Reported) Clopidogrel Bisulfate 75 Mg Tablet, 75 MG PO DAILY, #90 Ref 3 Prescribed by: LUIS MAYS on 05/03/16 1039 Fluticasone/Salmeterol 12 Gm Hfa.aer.ad, 2 PUFF IH BID, (Reported) Hydrocodone/Acetaminophen 1 Each Tablet, 0.5-1 EACH PO Q6H PRN for PAIN-SEVERE, #14 Ref 0 Prescribed by: LYNNE LUNA on 03/15/17 1749 Metoprolol Succinate 50 Mg Tab.er.24h, 50 MG PO DAILY, #30 Ref 5 Prescribed by: LUIS MAYS on 05/03/16 1039 Multivit-Min/FA/Lycopene/Lut 1 Each Tablet, 1 TAB PO DAILY, (Reported) Nystatin 100,000 Unit/1 Ml Oral.susp, 5 ML PO QID, #140 Ref 0 Prescribed by: LYNNE LUNA on 03/15/17 1749 Paroxetine HCl 12.5 Mg Tab.er.24h, 12.5 MG PO HS, #30 Prescribed by: CHI SANTANA on 05/03/16 1002 Tiotropium [place] 1 Inh Aerp, 2 PUFF IH DAILY, (Reported) Past Zfjfkhy-Torfmo-Tljsmu Hx Patient Social History Alcohol Use: Denies Use Number of Drinks Today: GG Alcohol Beverage of Choice: Whiskey Recreational Drug Use: No Smoking Status: Former Smoker Type Used: Cigarettes Former Smoker, Quit: Jun 02, 2015 2nd Hand Smoke Exposure: No Recent Foreign Travel: No Contact w/Someone Who Travel: No Recent Infectious Disease Expo: No Recent Hopitalizations: No Physical Abuse: No Sexual Abuse: No Immunizations Up To Date Tetanus Booster (TDap): Less than 5yrs Date of Pneumonia Vaccine: Jan 01, 2009 Date of Influenza Vaccine: Dec 02, 2015 Seasonal Allergies Seasonal Allergies: No Surgeries History of Surgeries: Yes (aneurysm repair in [address]) Surgeries: Appendectomy, Tonsillectomy Respiratory History of Respiratory Disorde: Yes Respiratory Disorders: COPD, Emphysema Currently Using CPAP: No Currently Using BIPAP: No Cardiovascular History of Cardiac Disorders: Yes Cardiac Disorders: Atrial Fibrillation, Hypertension Neurological History of Neurological Disord: Yes (anurysm repair 2000) Reproductive System Hx Reproductive Disorders: No Sexually Transmitted Disease: No HIV/AIDS: No Genitourinary History of Genitourinary Disor: No Gastrointestinal History of Gastrointestinal Di: No Musculoskeletal History of Musculoskeletal Dis: Yes ("not significant" ) Musculoskeletal Disorders: Arthritis Endocrine History of Endocrine Disorders: No HEENT History of HEENT Disorders: Yes HEENT Disorders: Cataract Hearing Impairment: Hard of Hearing Cancer History of Cancer: No Psychosocial History of Psychiatric Problem: Yes Behavioral Health Disorders: Anxiety Suicide Risk Score: 0 Integumentary History of Skin or Integumenta: No Blood Transfusions History of Blood Disorders: No Adverse Reaction to a Blood Tr: No Family Medical History Significant Family History: No Pertinent Family Hx Family Medial History: Physical Exam Vital Signs Vital Sign - Last 12Hours 03/15/17 16:35 Temp 98.9 Pulse 62 Resp 20 B/P (MAP) 189/91 (123) Pulse Ox 97 O2 Delivery Nasal Cannula O2 Flow Rate 2.00 Capillary Refill : Less Than 3 Seconds Progress/Results/Core Measures Results/Orders My Orders Orders - LYNNE LUNA Ct Head/Face/Cervical Wo (03/15/17 15:39) Dipht,Pertuss(Acell),Tet Adult (Boostrix (03/15/17 17:27) Nystatin Oral Suspension (Mycostatin O (03/15/17 17:45) Fluconazole Tablet (Ed Only) (Diflucan T (03/15/17 17:45) Medications Given in ED Current Medications Medications Dose Ordered Sig/Rika Route Start Time Stop Time Status Last Admin Dose Admin Fluconazole 150 mg ONCE ONCE PO 03/15/17 17:45 03/15/17 17:46 DC 03/15/17 17:37 150 MG Nystatin 5 ml ONCE ONCE PO 03/15/17 17:45 03/15/17 17:46 DC 03/15/17 17:37 5 ML Vital Signs/I&O Vital Sign - Last 12Hours 03/15/17 03/15/17 16:35 16:44 Temp 98.9 98.9 Pulse 62 62 Resp 20 20 B/P (MAP) 189/91 (123) 189/91 (123) Pulse Ox 97 97 O2 Delivery Nasal Cannula Nasal Cannula O2 Flow Rate 2.00 Blood Pressure Mean: 123 Departure Impression Impression: Primary Impression: Nasal bones, closed fracture Additional Impressions: Minor head injury with loss of consciousness Contusion of knee, left Disposition: 01 HOME, SELF-CARE Condition: Improved Departure-Patient Inst. Decision time for Depature: 17:44 Referrals: CHI SANTANA DO (PCP/Family) Primary Care Physician Patient Instructions: Minor Head Injury (DC), Nose Fracture (DC) Add. Discharge Instructions: All discharge instructions reviewed with patient and/or family. Voiced understanding. Medications as instructed. Tylenol extra strength over-the- counter as directed for pain. No heavy lifting, strenuous activities, activities which may result in head injury until released by your family practitioner. Follow-up with Dr. Santana on Friday for recheck. Call first thing Friday morning for appointment time. Return to the emergency department immediately for worsened pain, headache, dizziness, confusion, facial drooping, slurred speech, numbness, weakness, vomiting, shortness of air, chest pain, palpitations, seizure, or any other concerns. Scripts Nystatin (Nystatin) 100,000 Unit/1 Ml Oral.susp 5 ML PO QID, #140 ML 0 Refills Prov: LYNNE LUNA 03/15/17 Hydrocodone/Acetaminophen (Hydrocodone-Acetamin 5-325 mg) 1 Each Tablet 0.5-1 EACH PO Q6H Y for PAIN-SEVERE, #14 TAB 0 Refills Prov: LYNEN LUNA 03/15/17 LYNNE LUNA Mar 15, 2017 17:48
[2017-03-15] MEDS ORDERED: NYST1000 PO (17:49)
[2017-03-15] MEDS ORDERED: HYDR-3812 PO (17:49)
[2017-03-15 18:20] VITALS: BP 189/91
== END 2017-03-15 18:21 | disposition home or self-care (01) ==
LOC: EDUNIT# 15:14 → ER 15:15
DX: S09.90XA Unspecified injury of head, initial encounter (principal); S02.2XXA Fracture of nasal bones, initial encounter for closed fracture; S80.02XA Contusion of left knee, initial encounter; J43.9 Emphysema, unspecified; I48.91 Unspecified atrial fibrillation; F41.9 Anxiety disorder, unspecified; I10 Essential (primary) hypertension; Z23 Encounter for immunization; Z79.82 Long term (current) use of aspirin; Z79.891 Long term (current) use of opiate analgesic; Z90.49 Acquired absence of other specified parts of digestive tract; W18.30XA Fall on same level, unspecified, initial encounter; Y92.002 Bathroom of unspecified non-institutional (private) residence as the place of occurrence of the external cause
CPT/HCPCS: 70450; 70486; 72125; 90715; 99283

== ENCOUNTER 2017-06-10 18:22 | Emergency (ER) | payer MEDICARE, BC ==
[~2017-06-10] VITALS: Ht 160 cm; Wt 51.7 kg
[~2017-06-10 18:22] MED LIST changes: +HYDR-3812 PO; +NYST1000 PO
--- OUTSIDE RECORDS SUMMARY | 2017-06-10 18:29 | XMS REPORT | Continuity of Care Document ---
Author Author [facility] Organization [facility] Address Unknown Phone Unavailable Allergies Active Description Code Type Severity Reaction Onset Reported/Identified Relationship to Patient Clinical Status Yes No Known Drug Allergies [id number] Drug Allergy Unknown N/A 06/26/2015 Medications There is no data. 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 07/07/2013 OBED ESQUIVEL FACC, JESSICA FACP CCDS Ot 496 CHR AIRWAY OBSTRUCT NEC 07/07/2013 OBED ESQUIVEL FACC, JESSICA FACP CCDS Ot 780.4 DIZZINESS AND GIDDINESS 07/07/2013 OBED ESQUIVEL FACC, JESSICA FACP CCDS Ot 785.9 CARDIOVAS SYS SYMP NEC 07/07/2013 OBED ESQUIVEL FACC, JESSICA FACP CCDS Ot E944.4 ADV EFF DIURETICS NEC 06/27/2014 FELICIA DOUGLASS MD Ot V76.12 11/17/2014 FELICIA DOUGLASS MD Ot V76.12 11/17/2014 JESSICA CLAY MD, FACC FACP CCDS Ot 305.1 11/17/2014 JESSICA CLAY MD, FACC FACP CCDS Ot 401.9 11/17/2014 JESSICA CLAY MD, FACC FACP CCDS Ot 427.81 11/17/2014 JESSICA CLAY MD, FACC FACP CCDS Ot 786.09 11/17/2014 FELICIA DOUGLASS MD Ot V76.12 11/17/2014 GLYNN ESQUIVEL, NI Atkins Ot 784.0 HEADACHE 05/31/2015 FELICIA DOUGLASS MD Ot V76.12 05/31/2015 OBED ESQUIVEL FACC, ALI FACP CCDS Ot 305.1 05/31/2015 OBED ESQUIVEL FACC, ALI FACP CCDS Ot 401.9 05/31/2015 OBED ESQUIVEL FACC, ALI FACP CCDS Ot 427.81 05/31/2015 OBED ESQUIVEL FACC, ALI FACP CCDS Ot 786.09 05/31/2015 FELICIA DOUGLASS MD Ot V76.12 06/21/2015 FELICIA DOUGLASS MD Ot Z12.31 ENCNTR SCREEN MAMMOGRAM FOR MALIGNANT NE 06/23/2015 FELICIA DOUGLASS MD Ot V76.12 OTH SCREEN MAMMO-MALIGN NEOPLASM OF ZOE 06/23/2015 OBED ESQUIVEL FACC, ALI FACP CCDS Ot 305.1 TOBACCO USE DISORDER 06/23/2015 OBED ESQUIVEL FACC, ALI FACP CCDS Ot 401.9 HYPERTENSION NOS 06/23/2015 OBED ESQUIVEL FACC, ALI FACP CCDS Ot 427.81 SINOATRIAL NODE DYSFUNCT 06/23/2015 OBED ESQUIVEL FACC, ALI FACP CCDS Ot 786.09 RESPIRATORY ABNORM NEC 06/23/2015 FELICIA DOUGLASS MD Ot V76.12 OTH SCREEN MAMMO-MALIGN NEOPLASM OF ZOE 06/23/2015 FELICIA DOUGLASS MD Ot Z12.31 ENCNTR SCREEN MAMMOGRAM FOR MALIGNANT NE 06/26/2015 FELICIA DOUGLASS MD Ot R92.8 OTH ABN AND INCONCLUSIVE FINDINGS ON DX 06/27/2015 FELICIA DOUGLASS MD Ot F41.9 ANXIETY DISORDER, UNSPECIFIED 06/27/2015 FELICIA DOUGLASS MD Ot I10 ESSENTIAL (PRIMARY) HYPERTENSION 06/27/2015 FELICIA DOUGLASS MD Ot J44.1 CHRONIC OBSTRUCTIVE PULMONARY DISEASE W 06/27/2015 FELICIA DOUGLASS MD Ot Z99.81 DEPENDENCE ON SUPPLEMENTAL OXYGEN 06/28/2015 FELICIA DOUGLASS MD Ot E83.52 HYPERCALCEMIA 06/28/2015 FELICIA DOUGLASS MD Ot E86.0 DEHYDRATION 06/28/2015 FELICIA DOUGLASS MD Ot 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, CIGARETTES, W OTH D 06/28/2015 FELICIA DOUGLASS MD Ot F41.9 ANXIETY DISORDER, UNSPECIFIED 06/28/2015 FELICIA DOUGLASS MD Ot I10 ESSENTIAL (PRIMARY) HYPERTENSION 06/28/2015 FELICIA DOUGLASS MD Ot J44.1 CHRONIC OBSTRUCTIVE PULMONARY DISEASE W 06/28/2015 FELICIA DOUGLASS MD Ot J96.22 ACUTE AND CHRONIC RESPIRATORY FAILURE [place] 06/28/2015 FELICIA DOUGLASS MD Ot M19.90 UNSPECIFIED OSTEOARTHRITIS, UNSPECIFIED 06/28/2015 FELICIA DOUGLASS MD Ot Z99.81 DEPENDENCE ON SUPPLEMENTAL OXYGEN 06/28/2015 FELICIA DOUGLASS MD Ot E83.52 HYPERCALCEMIA 06/28/2015 FELICIA DOUGLASS MD Ot E86.0 DEHYDRATION 06/28/2015 FELICIA DOUGLASS MD Ot 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, CIGARETTES, W OTH D 06/28/2015 FELICIA DOUGLASS MD Ot F41.9 ANXIETY DISORDER, UNSPECIFIED 06/28/2015 FELICIA DOUGLASS MD Ot I10 ESSENTIAL (PRIMARY) HYPERTENSION 06/28/2015 FELICIA DOUGLASS MD Ot J44.1 CHRONIC OBSTRUCTIVE PULMONARY DISEASE W 06/28/2015 FELICIA DOUGLASS MD Ot J96.22 ACUTE AND CHRONIC RESPIRATORY FAILURE [place] 06/28/2015 FELICIA DOUGLASS MD Ot M19.90 UNSPECIFIED OSTEOARTHRITIS, UNSPECIFIED 06/28/2015 FELICIA DOUGLASS MD Ot Z99.81 DEPENDENCE ON SUPPLEMENTAL OXYGEN 06/30/2015 FELICIA DOUGLASS MD Ot D72.829 ELEVATED WHITE BLOOD CELL COUNT, UNSPECI 06/30/2015 FELICIA DOUGLASS MD Ot E11.9 TYPE 2 DIABETES MELLITUS WITHOUT COMPLIC 06/30/2015 FELICIA DOUGLASS MD Ot E78.5 HYPERLIPIDEMIA, UNSPECIFIED 06/30/2015 FELICIA DOUGLASS MD Ot E83.52 HYPERCALCEMIA 06/30/2015 FELICIA DOUGLASS MD Ot E86.0 DEHYDRATION 06/30/2015 FELICIA DOUGLASS MD Ot 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, CIGARETTES, W OTH D 06/30/2015 FELICIA DOUGLASS MD Ot F41.9 ANXIETY DISORDER, UNSPECIFIED 06/30/2015 FELICIA DOUGLASS MD Ot I10 ESSENTIAL (PRIMARY) HYPERTENSION 06/30/2015 FELICIA DOUGLASS MD Ot I48.0 PAROXYSMAL ATRIAL FIBRILLATION 06/30/2015 FELICIA DOUGLASS MD Ot I49.5 SICK SINUS SYNDROME 06/30/2015 FELICIA DOUGLASS MD Ot I87.2 VENOUS INSUFFICIENCY (CHRONIC) (PERIPHER 06/30/2015 FELICIA DOUGLASS MD, Ot J44.1 CHRONIC OBSTRUCTIVE PULMONARY DISEASE W 06/30/2015 FELICIA DOUGLASS MD, Ot J96.22 ACUTE AND CHRONIC RESPIRATORY FAILURE [place] 06/30/2015 FELICIA DOUGLASS MD, Ot M19.90 UNSPECIFIED OSTEOARTHRITIS, UNSPECIFIED 06/30/2015 FELICIA DOUGLASS MD, Ot M79.89 OTHER SPECIFIED SOFT TISSUE DISORDERS 06/30/2015 FELICIA DOUGLASS MD, Ot T46.1X5A ADVERSE EFFECT OF CALCIUM-CHANNEL BLOCKE 06/30/2015 FELICIA DOUGLASS MD, Ot Z91.19 PATIENT'S NONCOMPLIANCE W OTH MEDICAL TR 06/30/2015 FELICIA DOUGLASS MD Ot Z99.81 DEPENDENCE ON SUPPLEMENTAL OXYGEN 07/13/2015 FELICIA DOUGLASS MD Ot R92.8 OTH ABN AND INCONCLUSIVE FINDINGS ON DX 08/28/2015 FELICIA DOUGLASS MD Ot V76.12 OTH SCREEN MAMMO-MALIGN NEOPLASM OF ZOE 08/28/2015 OBED ESQUIVEL FACC, ALI FACP CCDS Ot 305.1 TOBACCO USE DISORDER 08/28/2015 OBED ESQUIVEL FACC, ALI FACP CCDS Ot 401.9 HYPERTENSION NOS 08/28/2015 OBED ESQUIVEL FACC, ALI FACP CCDS Ot 427.81 SINOATRIAL NODE DYSFUNCT 08/28/2015 OBED ESQUIVEL FACC, ALI FACP CCDS Ot 786.09 RESPIRATORY ABNORM NEC 08/28/2015 FELICIA DOUGLASS MD Ot V76.12 OTH SCREEN MAMMO-MALIGN NEOPLASM OF ZOE 08/28/2015 FELICIA DOUGLASS MD Ot Z12.31 ENCNTR SCREEN MAMMOGRAM FOR MALIGNANT NE 08/28/2015 FELICIA DOUGLASS MD Ot R92.8 OTH ABN AND INCONCLUSIVE FINDINGS ON DX 08/31/2015 JASON SCALES DO Ot J44.9 CHRONIC OBSTRUCTIVE PULMONARY DISEASE, U 08/31/2015 JASON SCALES DO Ot R06.09 OTHER FORMS OF DYSPNEA 09/21/2015 JASON SCALES DO Ot J44.9 CHRONIC OBSTRUCTIVE PULMONARY DISEASE, U 09/21/2015 JASON SCALES DO Ot R06.09 OTHER FORMS OF DYSPNEA 10/24/2015 JASON SCALES DO Ot J44.9 CHRONIC OBSTRUCTIVE PULMONARY DISEASE, U 10/24/2015 JASON SCALES DO Ot R06.09 OTHER FORMS OF DYSPNEA 11/26/2015 JASON SCALES DO Ot J44.9 CHRONIC OBSTRUCTIVE PULMONARY DISEASE, U 11/26/2015 JASON SCALES DO Ot R06.09 OTHER FORMS OF DYSPNEA 11/30/2015 FELICIA DOUGLASS MD Ot V76.12 OTH SCREEN MAMMO-MALIGN NEOPLASM OF ZOE 11/30/2015 OBED ESQUIVEL FACC, ALI FACP CCDS Ot 305.1 TOBACCO USE DISORDER 11/30/2015 OBED ESQUIVEL FACC, ALI FACP CCDS Ot 401.9 HYPERTENSION NOS 11/30/2015 OBED ESQUIVEL FACC, ALI FACP CCDS Ot 427.81 SINOATRIAL NODE DYSFUNCT 11/30/2015 OBED ESQUIVEL FACC, ALI FACP CCDS Ot 786.09 RESPIRATORY ABNORM NEC 11/30/2015 FELICIA DOUGLASS MD Ot V76.12 OTH SCREEN MAMMO-MALIGN NEOPLASM OF ZOE 11/30/2015 FELICIA DOUGLASS MD Ot Z12.31 ENCNTR SCREEN MAMMOGRAM FOR MALIGNANT NE 11/30/2015 FELICIA DOUGLASS MD Ot R92.8 OTH ABN AND INCONCLUSIVE FINDINGS ON DX 11/30/2015 JASON SCALES DO Ot J44.9 CHRONIC OBSTRUCTIVE PULMONARY DISEASE, U 11/30/2015 JASON SCALES DO Ot R06.09 OTHER FORMS OF DYSPNEA 11/30/2015 JASON SCALES DO Ot J44.9 CHRONIC OBSTRUCTIVE PULMONARY DISEASE, U 11/30/2015 JASON SCALES DO Ot R06.09 OTHER FORMS OF DYSPNEA 12/01/2015 JASON SCALES DO Ot J44.9 CHRONIC OBSTRUCTIVE PULMONARY DISEASE, U 12/01/2015 JASON SCALES DO Ot R06.09 OTHER FORMS OF DYSPNEA 12/01/2015 FELICIA DOUGLASS MD Ot V76.12 OTH SCREEN MAMMO-MALIGN NEOPLASM OF ZOE 12/01/2015 OBED ESQUIVEL FACC, ALI FACP CCDS Ot 305.1 TOBACCO USE DISORDER 12/01/2015 OBED ESQUIVEL FACC, ALI FACP CCDS Ot 401.9 HYPERTENSION NOS 12/01/2015 OBED ESQUIVEL FACC, ALI FACP CCDS Ot 427.81 SINOATRIAL NODE DYSFUNCT 12/01/2015 OBED ESQUIVEL FACC, ALI FACP CCDS Ot 786.09 RESPIRATORY ABNORM NEC 12/01/2015 FELICIA DOUGLASS MD Ot V76.12 OTH SCREEN MAMMO-MALIGN NEOPLASM OF ZOE 12/01/2015 FELICIA DOUGLASS MD Ot Z12.31 ENCNTR SCREEN MAMMOGRAM FOR MALIGNANT NE 12/01/2015 FELICIA DOUGLASS MD Ot R92.8 OTH ABN AND INCONCLUSIVE FINDINGS ON DX 12/01/2015 JASON SCALES DO Ot J44.9 CHRONIC OBSTRUCTIVE PULMONARY DISEASE, U 12/01/2015 YORDYJASON SOLARES DO M Ot R06.09 OTHER FORMS OF DYSPNEA 12/02/2015 JASON SCALES DO Ot J44.9 CHRONIC OBSTRUCTIVE PULMONARY DISEASE, U 12/02/2015 YORDYJASON SOLARES DO M Ot R06.09 OTHER FORMS OF DYSPNEA 12/25/2015 YORDYJASON SOLARES DO M Ot J44.9 CHRONIC OBSTRUCTIVE PULMONARY DISEASE, U 12/25/2015 YORDYJASON SOLARES DO M Ot R06.09 OTHER FORMS OF DYSPNEA 12/26/2015 FELICIA DOUGLASS MD Ot V76.12 OTH SCREEN MAMMO-MALIGN NEOPLASM OF ZOE 12/26/2015 OBED ESQUIVEL FACC, JESSICA FACP CCDS Ot 305.1 TOBACCO USE DISORDER 12/26/2015 OBED ESQUIVEL FACC, ALI FACP CCDS Ot 401.9 HYPERTENSION NOS 12/26/2015 OBED ESQUIVEL FACC, ALI FACP CCDS Ot 427.81 SINOATRIAL NODE DYSFUNCT 12/26/2015 OBED ESQUIVEL FACC, ALI FACP CCDS Ot 786.09 RESPIRATORY ABNORM NEC 12/26/2015 FELICIA DOUGLASS MD Ot V76.12 OTH SCREEN MAMMO-MALIGN NEOPLASM OF ZOE 12/26/2015 FELICIA DOUGLASS MD Ot Z12.31 ENCNTR SCREEN MAMMOGRAM FOR MALIGNANT NE 12/26/2015 FELICIA DOUGLASS MD Ot R92.8 OT ABN AND INCONCLUSIVE FINDINGS ON DX 12/26/2015 JASON SCALES DO Ot J44.9 CHRONIC OBSTRUCTIVE PULMONARY DISEASE, U 12/26/2015 JASON SCALES DO Ot R06.09 OTHER FORMS OF DYSPNEA 12/26/2015 JASON SCALES DO Ot J44.9 CHRONIC OBSTRUCTIVE PULMONARY DISEASE, U 12/26/2015 JASON SCALES DO Ot R06.09 OTHER FORMS OF DYSPNEA 12/28/2015 JASON SCALES DO Ot J44.9 CHRONIC OBSTRUCTIVE PULMONARY DISEASE, U 12/28/2015 JASON SCALES DO Ot R06.09 OTHER FORMS OF DYSPNEA 01/11/2016 BAIMA, LUIS L OTR DRIVER Ot I10 ESSENTIAL (PRIMARY) HYPERTENSION 01/11/2016 BAIMA, LUIS L OTR DRIVER Ot I48.0 PAROXYSMAL ATRIAL FIBRILLATION 01/11/2016 BAIMA, LUIS L OTR DRIVER Ot R06.09 OTHER FORMS OF DYSPNEA 01/11/2016 BAIMA, LUIS L OTR DRIVER Ot I10 ESSENTIAL (PRIMARY) HYPERTENSION 01/11/2016 BAIMA, LUIS L OTR DRIVER Ot I48.0 PAROXYSMAL ATRIAL FIBRILLATION 01/11/2016 BAIMA, LUIS L OTR DRIVER Ot R06.09 OTHER FORMS OF DYSPNEA 01/12/2016 BAIMA, LUIS L OTR DRIVER Ot I10 ESSENTIAL (PRIMARY) HYPERTENSION 01/12/2016 BAIMA, LUIS L OTR DRIVER Ot I48.0 PAROXYSMAL ATRIAL FIBRILLATION 01/12/2016 BAIMA, LUIS L OTR DRIVER Ot R06.09 OTHER FORMS OF DYSPNEA 01/16/2016 BAIMA, LUIS L OTR DRIVER Ot I10 ESSENTIAL (PRIMARY) HYPERTENSION 01/16/2016 BAIMA, LUIS L OTR DRIVER Ot I48.0 PAROXYSMAL ATRIAL FIBRILLATION 01/16/2016 BAIMA, LUIS L OTR DRIVER Ot R06.09 OTHER FORMS OF DYSPNEA 01/31/2016 BAIMA, LUIS L OTR DRIVER Ot I10 ESSENTIAL (PRIMARY) HYPERTENSION 01/31/2016 BAIMA, LUIS L OTR DRIVER Ot I48.0 PAROXYSMAL ATRIAL FIBRILLATION 01/31/2016 BAIMA, LUIS L OTR DRIVER Ot R06.09 OTHER FORMS OF DYSPNEA 02/28/2016 JASON SCALES DO Ot J44.9 CHRONIC OBSTRUCTIVE PULMONARY DISEASE, U 02/28/2016 JASON SCALES DO M Ot R06.09 OTHER FORMS OF DYSPNEA 02/29/2016 JASON SCALES DO Ot J44.9 CHRONIC OBSTRUCTIVE PULMONARY DISEASE, U 02/29/2016 JASON SCALES DO Ot R06.09 OTHER FORMS OF DYSPNEA 05/03/2016 OBED ESQUIVEL FACC, ALI FACP CCDS Ot E78.5 HYPERLIPIDEMIA, UNSPECIFIED 05/03/2016 OBED DUEÑASC, ALI FACP CCDS Ot F10.20 ALCOHOL DEPENDENCE, UNCOMPLICATED 05/03/2016 OBED DUEÑASC, ALI FACP CCDS Ot F41.9 ANXIETY DISORDER, UNSPECIFIED 05/03/2016 OBED ESQUIVEL FACC, ALI FACP CCDS Ot I10 ESSENTIAL (PRIMARY) HYPERTENSION 05/03/2016 OBED ESQUIVEL FACC, ALI FACP CCDS Ot I21.4 NON-ST ELEVATION (NSTEMI) MYOCARDIAL INF 05/03/2016 OBED ESQUIVEL FACC, ALI FACP CCDS Ot I25.10 ATHSCL HEART DISEASE OF [place] CORONARY 05/03/2016 OBED ESQUIVEL FACC, ALI FACP CCDS Ot I48.91 UNSPECIFIED ATRIAL FIBRILLATION 05/03/2016 OBED ESQUIVEL FACC, ALI FACP CCDS Ot I49.5 SICK SINUS SYNDROME 05/03/2016 OBED ESQUIVEL FACC, ALI FACP CCDS Ot J44.9 CHRONIC OBSTRUCTIVE PULMONARY DISEASE, U 05/03/2016 OBED ESQUIVEL FACC, ALI FACP CCDS Ot K44.9 DIAPHRAGMATIC HERNIA WITHOUT OBSTRUCTION 05/03/2016 OBED DUEÑASC, ALI FACP CCDS Ot M79.89 OTHER SPECIFIED SOFT TISSUE DISORDERS 05/03/2016 OBED ESQUIVEL FACC, ALI FACP CCDS Ot R51 HEADACHE 05/03/2016 OBED ESQUIVEL FACC, ALI FACP CCDS Ot R91.1 SOLITARY PULMONARY NODULE 05/03/2016 OBED ESQUIVEL FACC, ALI FACP CCDS Ot Z87.891 PERSONAL HISTORY OF NICOTINE DEPENDENCE 05/13/2016 BELINDA BURNHAM DO Ot I10 ESSENTIAL (PRIMARY) HYPERTENSION 05/13/2016 BELINDA BURNHAM DO Ot I48.2 CHRONIC ATRIAL FIBRILLATION 05/13/2016 BELINDA BURNHAM DO Ot J44.9 CHRONIC OBSTRUCTIVE PULMONARY DISEASE, U 05/13/2016 BELINDA BURNHAM DO Ot S00.01XA ABRASION OF SCALP, INITIAL ENCOUNTER 05/13/2016 BELINDA BURNHAM DO Wilbert Ot X58.XXXA EXPOSURE TO OTHER SPECIFIED FACTORS, INI 05/13/2016 BELINDA BURNHAM DO Wilbert Ot Y99.8 OTHER EXTERNAL CAUSE STATUS 05/13/2016 BELINDA BURNHAM DO Wilbert Ot Z79.02 CORE STRIPPER (CURRENT) USE OF ANTITHROMBOTI 05/13/2016 CHACHA CAMPOS BELINDA Wilbert Ot Z79.82 CORE STRIPPER (CURRENT) USE OF ASPIRIN 05/13/2016 CHACHA BELINDA CAMPOS Ot Z79.899 OTHER CORE STRIPPER (CURRENT) DRUG THERAPY 05/14/2016 OBED ESQUIVEL FACC, ALI FACP CCDS Ot I25.10 ATHSCL HEART DISEASE OF [place] CORONARY 05/14/2016 OBED ESQUIVEL FACC, ALI FACP CCDS Ot I25.10 ATHSCL HEART DISEASE OF [place] CORONARY 05/14/2016 OBED ESQUIVEL FACC, ALI FACP CCDS Ot I48.0 PAROXYSMAL ATRIAL FIBRILLATION 05/14/2016 OBED ESQUIVEL FACC, ALI FACP CCDS Ot I72.4 ANEURYSM OF ARTERY OF LOWER EXTREMITY 05/14/2016 OBED ESQUIVEL FACC, ALI FACP CCDS Ot J43.8 OTHER EMPHYSEMA 05/14/2016 OBED ESQUIVEL FACC, ALI FACP CCDS Ot R06.09 OTHER FORMS OF DYSPNEA 05/15/2016 OBED ESQUIVEL FACC, ALI FACP CCDS Ot I25.10 ATHSCL HEART DISEASE OF [place] CORONARY 05/15/2016 OBED ESQUIVEL FACC, ALI FACP CCDS Ot I48.0 PAROXYSMAL ATRIAL FIBRILLATION 05/15/2016 OBED ESQUIVEL FACC, ALI FACP CCDS Ot I72.4 ANEURYSM OF ARTERY OF LOWER EXTREMITY 05/15/2016 OBED ESQUIVEL FACC, ALI FACP CCDS Ot J43.8 OTHER EMPHYSEMA 05/15/2016 OBED ESQUIVEL FACC, ALI FACP CCDS Ot R06.09 OTHER FORMS OF DYSPNEA 05/15/2016 OBED ESQUIVEL FACC, ALI FACP CCDS Ot I25.10 ATHSCL HEART DISEASE OF [place] CORONARY 05/15/2016 OBED ESQUIVEL FACC, ALI FACP CCDS Ot I48.0 PAROXYSMAL ATRIAL FIBRILLATION 05/15/2016 OBED ESQUIVEL FACC, ALI FACP CCDS Ot I72.4 ANEURYSM OF ARTERY OF LOWER EXTREMITY 05/15/2016 OBED ESQUIVEL FACC, ALI FACP CCDS Ot J43.8 OTHER EMPHYSEMA 05/15/2016 OBED DUEÑAS, ALI FACP CCDS Ot R06.09 OTHER FORMS OF DYSPNEA 05/15/2016 OBED ESQUIVEL FACC, ALI FACP CCDS Ot I25.10 ATHSCL HEART DISEASE OF [place] CORONARY 05/15/2016 OBED ESQUIVEL FACC, ALI FACP CCDS Ot I48.0 PAROXYSMAL ATRIAL FIBRILLATION 05/15/2016 OBED ESQUIVEL FACC, ALI FACP CCDS Ot I72.4 ANEURYSM OF ARTERY OF LOWER EXTREMITY 05/15/2016 OBED ESQUIVEL FACC, ALI FACP CCDS Ot J43.8 OTHER EMPHYSEMA 05/15/2016 OBED DUEÑAS, ALI FACP CCDS Ot R06.09 OTHER FORMS OF DYSPNEA 05/19/2016 BELINDA BUNRHAM DO Ot I10 ESSENTIAL (PRIMARY) HYPERTENSION 05/19/2016 BELINDA BURNHAM DO Ot I48.2 CHRONIC ATRIAL FIBRILLATION 05/19/2016 BELINDA BURNHAM DO, Ot J44.9 CHRONIC OBSTRUCTIVE PULMONARY DISEASE, U 05/19/2016 BELINDA BURNHAM DO, Ot S00.01XA ABRASION OF SCALP, INITIAL ENCOUNTER 05/19/2016 BELINDA BURNHAM DO, Ot X58.XXXA EXPOSURE TO OTHER SPECIFIED FACTORS, INI 05/19/2016 BELINDA BURNHAM DO Ot Y99.8 OTHER EXTERNAL CAUSE STATUS 05/19/2016 BELINDA BURNHAM DO Ot Z79.02 LONG-TERM (CURRENT) USE OF ANTITHROMBOTI 05/19/2016 BELINDA BURNHAM DO, Ot Z79.82 LONG-TERM (CURRENT) USE OF ASPIRIN 05/19/2016 BELINDA BURNHAM DO, Ot Z79.899 OTHER LONG-TERM (CURRENT) DRUG THERAPY 09/02/2016 LUIS MAYS Ot I10 ESSENTIAL (PRIMARY) HYPERTENSION 09/02/2016 LUIS MAYS Ot I48.0 PAROXYSMAL ATRIAL FIBRILLATION 09/02/2016 LUIS MAYS Ot R06.09 OTHER FORMS OF DYSPNEA 09/02/2016 JASON SCALES DO Ot J44.9 CHRONIC OBSTRUCTIVE PULMONARY DISEASE, U 09/02/2016 JASON SCALES DO Ot R06.09 OTHER FORMS OF DYSPNEA 09/06/2016 JO NEVAREZ APRN Ot F17.201 NICOTINE DEPENDENCE, UNSPECIFIED, IN REM 09/06/2016 JO NEVAREZ HAND FRETTED INSTRUMENT MAKER Ot J43.8 OTHER EMPHYSEMA 09/06/2016 JO NEVAREZ HAND FRETTED INSTRUMENT MAKER Ot R06.09 OTHER FORMS OF DYSPNEA 09/06/2016 FATMATA NEVAREZINE Cecil HAND FRETTED INSTRUMENT MAKER Ot R91.8 OTHER NONSPECIFIC ABNORMAL FINDING OF LUCAS 09/27/2016 JO NEVAREZ HAND FRETTED INSTRUMENT MAKER Ot F17.201 NICOTINE DEPENDENCE, UNSPECIFIED, IN REM 09/27/2016 JO NEVAREZ HAND FRETTED INSTRUMENT MAKER Ot J43.8 OTHER EMPHYSEMA 09/27/2016 JO NEVAREZ HAND FRETTED INSTRUMENT MAKER Ot R06.09 OTHER FORMS OF DYSPNEA 09/27/2016 JO NEVAREZ HAND FRETTED INSTRUMENT MAKER Ot R91.8 OTHER NONSPECIFIC ABNORMAL FINDING OF [place]UC[place] 12/20/2016 OBED ESQUIVEL FACC, ALI FACP CCDS Ot I10 ESSENTIAL (PRIMARY) HYPERTENSION 12/20/2016 OBED ESQUIVEL FACC, ALI FACP CCDS Ot I25.10 ATHSCL HEART DISEASE OF [place] CORONARY 12/20/2016 OBED DUEÑASC, ALI FACP CCDS Ot I25.5 ISCHEMIC CARDIOMYOPATHY 12/20/2016 OBED ESQUIVEL FACC, ALI FACP CCDS Ot I48.0 PAROXYSMAL ATRIAL FIBRILLATION 12/20/2016 OBED DUEÑASC, ALI FACP CCDS Ot I65.23 OCCLUSION AND STENOSIS OF BILATERAL [place] 12/20/2016 OBED ESQUIVEL FACC, ALI FACP CCDS Ot J43.8 OTHER EMPHYSEMA 12/20/2016 OBED ESQUIVEL FACC, ALI FACP CCDS Ot Z72.0 TOBACCO USE 01/10/2017 OBED ESQUIVEL FACC, ALI FACP CCDS Ot I10 ESSENTIAL (PRIMARY) HYPERTENSION 01/10/2017 OBED ESQUIVEL FACC, ALI FACP CCDS Ot I25.10 ATHSCL HEART DISEASE OF [place] CORONARY 01/10/2017 OBED DUEÑASC, ALI FACP CCDS Ot I25.5 ISCHEMIC CARDIOMYOPATHY 01/10/2017 OBED DUEÑASC, ALI FACP CCDS Ot I48.0 PAROXYSMAL ATRIAL FIBRILLATION 01/10/2017 OBED DUEÑASC, ALI FACP CCDS Ot I65.23 OCCLUSION AND STENOSIS OF BILATERAL [place] 01/10/2017 OBED DUEÑASC, ALI FACP CCDS Ot J43.8 OTHER EMPHYSEMA 01/10/2017 OBED DUEÑASC, ALI FACP CCDS Ot Z72.0 TOBACCO USE 03/15/2017 LYNNE ROBLES Ot F41.9 ANXIETY DISORDER, UNSPECIFIED 03/15/2017 LYNNE ROBLES Ot I10 ESSENTIAL (PRIMARY) HYPERTENSION 03/15/2017 LYNNE ROBLES Ot I48.91 UNSPECIFIED ATRIAL FIBRILLATION 03/15/2017 LYNNE ROBLES Ot J43.9 EMPHYSEMA, UNSPECIFIED 03/15/2017 LYNNE ROBLES Ot S00.83XA CONTUSION OF OTHER PART OF HEAD, INITIAL 03/15/2017 LYNNE ROBLES Ot S02.2XXA FRACTURE OF NASAL BONES, INIT ENCNTR FOR 03/15/2017 LYNNE ROBLES Ot S09.90XA UNSPECIFIED INJURY OF HEAD, INITIAL ENCO 03/15/2017 LYNNE ROBLES Ot S80.02XA CONTUSION OF LEFT KNEE, INITIAL ENCOUNTE 03/15/2017 LYNNE ROBLES Ot W18.30XA FALL ON SAME LEVEL, UNSPECIFIED, INITIAL 03/15/2017 LYNNE ROBLES Ot Y92.002 BATHRM OF [facility] SN 03/15/2017 LYNNE ROBLES Ot Z23 ENCOUNTER FOR IMMUNIZATION 03/15/2017 LYNNE ROBLES Ot Z79.82 CORE STRIPPER (CURRENT) USE OF ASPIRIN 03/15/2017 LYNNE ROBLES Ot Z79.891 CORE STRIPPER (CURRENT) USE OF OPIATE ANALGE 03/15/2017 LYNNE ROBLES Ot Z90.49 ACQUIRED ABSENCE OF OTHER SPECIFIED PART 03/17/2017 LYNNE ROBLES Ot F41.9 ANXIETY DISORDER, UNSPECIFIED 03/17/2017 LYNNE ROBLES Ot I10 ESSENTIAL (PRIMARY) HYPERTENSION 03/17/2017 LYNNE ROBLES Ot I48.91 UNSPECIFIED ATRIAL FIBRILLATION 03/17/2017 LYNNE ROBLES Ot J43.9 EMPHYSEMA, UNSPECIFIED 03/17/2017 LYNNE ROBLES Ot S00.83XA CONTUSION OF OTHER PART OF HEAD, INITIAL 03/17/2017 LYNNE ROBLES Ot S02.2XXA FRACTURE OF NASAL BONES, INIT ENCNTR FOR 03/17/2017 LYNNE ROBLES Ot S09.90XA UNSPECIFIED INJURY OF HEAD, INITIAL ENCO 03/17/2017 LYNNE ROBLES Ot S80.02XA CONTUSION OF LEFT KNEE, INITIAL ENCOUNTE 03/17/2017 LYNNE ROBLES Ot W18.30XA FALL ON SAME LEVEL, UNSPECIFIED, INITIAL 03/17/2017 LYNNE ROBLES Ot Y92.002 [facility]M [facility] SN[facility] 03/17/2017 LYNNE ROBLES Ot Z23 ENCOUNTER FOR IMMUNIZATION 03/17/2017 LYNNE ROBLES Ot Z79.82 CORE STRIPPER (CURRENT) USE OF ASPIRIN 03/17/2017 LYNNE ROBLES Ot Z79.891 LONG-TERM (CURRENT) USE OF OPIATE ANALGE 03/17/2017 LYNNE ROBLES Ot Z90.49 ACQUIRED ABSENCE OF OTHER SPECIFIED PART Procedures Code Description Performed By Performed On [id number] MEASURE OF CARDIAC SAMPL PRESSURE, L H 05/01/2016 [id number] FLUOROSCOPY OF MULT COR ART USING L OSM 05/01/2016 [id number] FLUOROSCOPY OF LEFT HEART USING LOW OSMO 05/01/2016 [id number] FLUOROSCOPY OF THORACIC AORTA USING LOW 05/01/2016 Results Test Result Range Complete blood count (CBC) with automated white blood cell (WBC) differential - 05/01/16 09:05 Blood leukocytes automated count (number/volume) 7.7 10*3/uL 4.3-11.0 Blood erythrocytes automated count (number/volume) 4.26 10*6/uL 4.35-5.85 Venous blood hemoglobin measurement (mass/volume) 13.8 g/dL 11.5-16.0 Blood hematocrit (volume fraction) 42 % 35-52 Automated erythrocyte mean corpuscular volume 97 [foz_us] 80-99 Automated erythrocyte mean corpuscular hemoglobin (mass per erythrocyte) 32 pg 25-34 Automated erythrocyte mean corpuscular hemoglobin concentration measurement ( mass/volume) 33 g/dL 32-36 Automated erythrocyte distribution width ratio 13.6 % 10.0-14.5 Automated blood platelet count (count/volume) 316 10*3/uL 130-400 Automated blood platelet mean volume measurement 9.8 [foz_us] 7.4-10.4 Automated blood neutrophils/100 leukocytes 58 % 42-75 Automated blood lymphocytes/100 leukocytes 27 % 12-44 Blood monocytes/100 leukocytes 11 % 0-12 Automated blood eosinophils/100 leukocytes 2 % 0-10 Automated blood basophils/100 leukocytes 1 % 0-10 Blood neutrophils automated count (number/volume) 4.5 10*3 1.8-7.8 Blood lymphocytes automated count (number/volume) 2.1 10*3 1.0-4.0 Blood monocytes automated count (number/volume) 0.8 10*3 0.0-1.0 Automated eosinophil count 0.2 10*3/uL 0.0-0.3 Automated blood basophil count (count/volume) 0.1 10*3/uL 0.0-0.1 PT panel in platelet poor plasma by coagulation assay - 05/01/16 09:05 Prothrombin time (PT) in platelet poor plasma by coagulation assay 12.5 s 12.2-14.7 INR in platelet poor plasma or blood by coagulation assay 1.0 0.8-1.4 Activated partial thromboplastin time (aPTT) in platelet poor plasma bycoagulation assay - 05/01/16 09:05 Activated partial thromboplastin time (aPTT) in platelet poor plasma bycoagulation assay 34 s 24-35 Comprehensive metabolic panel - 05/01/16 09:05 Serum or plasma sodium measurement (moles/volume) 138 mmol/L 135-145 Serum or plasma potassium measurement (moles/volume) 4.3 mmol/L 3.6-5.0 Serum or plasma chloride measurement (moles/volume) 102 mmol/L 98-107 Carbon dioxide 24 mmol/L 21-32 Serum or plasma anion gap determination (moles/volume) 12 mmol/L 5-14 Serum or plasma urea nitrogen measurement (mass/volume) 8 mg/dL 7-18 Serum or plasma creatinine measurement (mass/volume) 0.79 mg/dL 0.60-1.30 Serum or plasma urea nitrogen/creatinine mass ratio 10 NRG Serum or plasma creatinine measurement with calculation of estimated glomerular filtration rate > NRG Serum or plasma glucose measurement (mass/volume) 128 mg/dL 70-105 Serum or plasma calcium measurement (mass/volume) 9.9 mg/dL 8.5-10.1 Serum or plasma total bilirubin measurement (mass/volume) 0.7 mg/dL 0.1-1.0 Serum or plasma alkaline phosphatase measurement (enzymatic activity/volume) 62 U/L 40-136 Serum or plasma aspartate aminotransferase measurement (enzymatic activity/ volume) 39 U/L 5-34 Serum or plasma alanine aminotransferase measurement (enzymatic activity/volume ) 17 U/L 0-55 Serum or plasma protein measurement (mass/volume) 6.9 g/dL 6.4-8.2 Serum or plasma albumin measurement (mass/volume) 4.2 g/dL 3.2-4.5 Magnesium - 05/01/16 09:05 Magnesium 2.0 mg/dL 1.8-2.4 Serum or plasma troponin i.cardiac measurement (mass/volume) - 05/01/16 09:05 Serum or plasma troponin i.cardiac measurement (mass/volume) 2.02 ng /mL <0.30 Myoglobin, serum - 05/01/16 09:05 Myoglobin, serum 372.8 ng/mL 10.0-92.0 Digoxin - 05/01/16 09:05 Digoxin 0.40 ng/mL 0.80-2.00 Serum or plasma troponin i.cardiac measurement (mass/volume) - 05/01/16 15:04 Serum or plasma troponin i.cardiac measurement (mass/volume) 5.31 ng /mL <0.30 Activated partial thromboplastin time (aPTT) in platelet poor plasma bycoagulation assay - 05/01/16 16:20 Activated partial thromboplastin time (aPTT) in platelet poor plasma bycoagulation assay 110 s 24-35 Serum or plasma troponin i.cardiac measurement (mass/volume) - 05/01/16 21:09 Serum or plasma troponin i.cardiac measurement (mass/volume) 4.81 ng /mL <0.30 Automated blood complete blood count (hemogram) panel - 05/02/16 04:07 Blood leukocytes automated count (number/volume) 9.7 10*3/uL 4.3-11.0 Blood erythrocytes automated count (number/volume) 3.76 10*6/uL 4.35-5.85 Venous blood hemoglobin measurement (mass/volume) 12.1 g/dL 11.5-16.0 Blood hematocrit (volume fraction) 37 % 35-52 Automated erythrocyte mean corpuscular volume 98 [foz_us] 80-99 Automated erythrocyte mean corpuscular hemoglobin (mass per erythrocyte) 32 pg 25-34 Automated erythrocyte mean corpuscular hemoglobin concentration measurement ( mass/volume) 33 g/dL 32-36 Automated erythrocyte distribution width ratio 13.8 % 10.0-14.5 Automated blood platelet count (count/volume) 285 10*3/uL 130-400 Automated blood platelet mean volume measurement 10.0 [foz_us] 7.4-10.4 Comprehensive metabolic panel - 05/02/16 04:07 Serum or plasma sodium measurement (moles/volume) 140 mmol/L 135-145 Serum or plasma potassium measurement (moles/volume) 3.8 mmol/L 3.6-5.0 Serum or plasma chloride measurement (moles/volume) 107 mmol/L 98-107 Carbon dioxide 23 mmol/L 21-32 Serum or plasma anion gap determination (moles/volume) 10 mmol/L 5-14 Serum or plasma urea nitrogen measurement (mass/volume) 7 mg/dL 7-18 Serum or plasma creatinine measurement (mass/volume) 0.67 mg/dL 0.60-1.30 Serum or plasma urea nitrogen/creatinine mass ratio 10 NRG Serum or plasma creatinine measurement with calculation of estimated glomerular filtration rate > NRG Serum or plasma glucose measurement (mass/volume) 74 mg/dL 70-105 Serum or plasma calcium measurement (mass/volume) 8.8 mg/dL 8.5-10.1 Serum or plasma total bilirubin measurement (mass/volume) 0.5 mg/dL 0.1-1.0 Serum or plasma alkaline phosphatase measurement (enzymatic activity/volume) 51 U/L 40-136 Serum or plasma aspartate aminotransferase measurement (enzymatic activity/ volume) 47 U/L 5-34 Serum or plasma alanine aminotransferase measurement (enzymatic activity/volume ) 15 U/L 0-55 Serum or plasma protein measurement (mass/volume) 5.5 g/dL 6.4-8.2 Serum or plasma albumin measurement (mass/volume) 3.5 g/dL 3.2-4.5 Magnesium - 05/02/16 04:07 Magnesium 1.9 mg/dL 1.8-2.4 Lipid 1996 panel - 05/02/16 04:07 Serum or plasma triglyceride measurement (mass/volume) 102 mg/dL <150 Serum or plasma cholesterol measurement (mass/volume) 159 mg/dL < 200 Serum or plasma cholesterol in HDL measurement (mass/volume) 61 mg/ dL 40-60 Cholesterol in LDL [mass/volume] in serum or plasma by direct assay 75 mg/dL 1-129 Serum or plasma cholesterol in VLDL measurement (mass/volume) 20 mg/ dL 5-40 Encounters ACCT No. Visit Date/Time Discharge Status Pt. Type Provider Facility Loc./Unit Complaint [id number] 03/15/2017 15:15:00 03/15/2017 18:21:00 DIS Emergency LYNNE ROBLES [facility] ER FALL YESTERDAY/ BRUISING ON FACE [id number] 12/19/2016 12:40:00 12/19/2016 23:59:59 CLS Outpatient OBED ESQUIVEL FACC, JESSICA DUEÑASP CCDS [facility] CARD CAD I25.10 [id number] 09/05/2016 12:54:00 09/05/2016 23:59:59 CLS Outpatient OJ NEVAREZ APRN [facility] RAD COPD,[place] [id number] 05/14/2016 13:41:00 05/14/2016 18:45:00 DIS Outpatient OBED ESQUIVEL FACC, JESSICA FACFlorencio CCDS [facility] RAD CAD,[place] [id number] 05/13/2016 11:07:00 05/13/2016 13:12:00 DIS Emergency BELINDA BURNHAM DO [facility] ER BLEEDING ON SIDE OF HEAD [id number] 05/01/2016 10:58:00 05/03/2016 14:20:00 DIS Inpatient OBED ESQUVIEL FACC, JESSICA FACFlorencio CCDS [facility] ICU NSTEMI COPD EXACERBATION [id number] 02/29/2016 10:15:00 02/29/2016 23:59:59 CLS Preadmit JASON SCALES DO [facility] PULM COPD,[place] [id number] 01/11/2016 10:00:00 02/28/2016 00:01:00 DIS Outpatient JASON SCALES DO [facility] PULM COPD,[place] [id number] 01/10/2016 14:59:00 01/10/2016 23:59:59 CLS Outpatient LUIS MAYS [facility] CARD [place],HTN,I48.0 [id number] 11/23/2015 10:00:00 11/26/2015 00:01:00 DIS Outpatient YORDY CAMPOS JASON Mckeon [facility] PULM COPD,[place] [id number] 06/26/2015 17:52:00 06/30/2015 15:06:00 DIS Inpatient FELICIA DOUGLASS MD [facility] 4TH COPD ACUTE EXACERBATION [id number] 06/23/2015 09:11:00 06/23/2015 23:59:59 CLS Outpatient FELICIA DOUGLASS MD [facility] RAD ABNORMAL MAMMO [id number] 05/31/2015 11:35:00 05/31/2015 23:59:59 CLS Outpatient FELICIA DOUGLASS MD [facility] RAD SCREENING [id number] 11/17/2014 11:36:00 11/17/2014 13:55:00 DIS Emergency NI MAKI MD [facility] ER HEADACHE [id number] 05/26/2014 09:45:00 05/26/2014 23:59:59 CLS Outpatient FELICIA DOUGLASS MD [facility] RAD SCREENING [id number] 08/26/2013 07:44:00 08/26/2013 23:59:59 CLS Outpatient OBED ESQUIVEL FACNohelia, ALI FACP CCDS [facility] CARD HTN,SSS [id number] 07/06/2013 17:30:00 07/07/2013 13:55:00 DIS Inpatient OBED ESQUIVEL FACC, ALI FACP CCDS [facility] ICU PAROTSYSMAL SUPRAVATRICULAR TACHY CARDIA [id number] 05/25/2013 09:05:00 05/25/2013 23:59:59 CLS Outpatient FELICIA DOUGLASS MD [facility] RAD SCREENING [id number] 06/17/2017 11:15:00 PEN Preadmit JO NEVAREZ APRN [facility] RAD LUNG NODULE R91.1 07/201603/19/2017 15:40:11 03/19/2017 23:59:59 CLS Outpatient Mercedes Durand
[2017-06-10] MEDS ORDERED: CEPH-507 PO (18:34)
--- NOTE | 2017-06-10 18:34 | ED Lower Extremity ---
General Stated Complaint: R LEG LAC Source: patient Exam Limitations: no limitations History of Present Illness Date Seen by Provider: Jun 10, 2017 Time Seen by Provider: 18:30 Initial Comments To ER by her daughter with c/o right lateral leg laceration that occurred from a case of seltzer water hitting her leg while bringing in groceries 7 days ago. Daughter saw the laceration today and was concerned. no fevers or chills. Onset: last week Severity: moderate Pain/Injury Location: right leg Modifying Factors: Worse With Movement Allergies and Home Medications Allergies Coded Allergies: No Known Drug Allergies (Unverified , 06/26/15) Home Medications Acetaminophen 500 Mg Tablet, 500 MG PO Q4H PRN for PAIN, (Reported) Aspirin 81 Mg Tablet.dr, 81 MG PO DAILY Prescribed by: LUIS MAYS on 05/03/16 1039 Atorvastatin Calcium 40 Mg Tablet, 40 MG PO HS Prescribed by: LUIS MAYS on 05/03/16 1039 Calcium Carbonate/Vitamin D3 1 Each Tablet, 1 TAB PO BID, (Reported) Clopidogrel Bisulfate 75 Mg Tablet, 75 MG PO DAILY Prescribed by: LUIS MAYS on 05/03/16 1039 Fluticasone/Salmeterol 12 Gm Hfa.aer.ad, 2 PUFF IH BID, (Reported) Hydrocodone/Acetaminophen 1 Each Tablet, 0.5-1 EACH PO Q6H PRN for PAIN-SEVERE Prescribed by: LYNNE LUNA on 03/15/17 174 Metoprolol Succinate 50 Mg Tab.er.24h, 50 MG PO DAILY Prescribed by: LUIS MAYS on 05/03/16 1039 Multivit-Min/FA/Lycopene/Lut 1 Each Tablet, 1 TAB PO DAILY, (Reported) Nystatin 100,000 Unit/1 Ml Oral.susp, 5 ML PO QID Prescribed by: LYNNE LUNA on 03/15/17 174 Paroxetine HCl 12.5 Mg Tab.er.24h, 12.5 MG PO HS Prescribed by: CHI SANTANA on 05/03/16 1002 Tiotropium [place] 1 Inh Aerp, 2 PUFF IH DAILY, (Reported) Patient Home Medication List Home Medication List Reviewed: Yes Constitutional: see HPI EENTM: see HPI Respiratory: no symptoms reported Cardiovascular: no symptoms reported Genitourinary: no symptoms reported Musculoskeletal: see HPI Skin: no symptoms reported Psychiatric/Neurological: No Symptoms Reported Past Fzutrkn-Jklbnb-Tnntjn Hx Patient Social History Alcohol Beverage of Choice: Whiskey Type Used: Cigarettes Former Smoker, Quit: Jun 02, 2015 2nd Hand Smoke Exposure: No Recent Foreign Travel: No Contact w/Someone Who Travel: No Recent Hopitalizations: No Immunizations Up To Date Tetanus Booster (TDap): Less than 5yrs Date of Pneumonia Vaccine: Jan 01, 2009 Date of Influenza Vaccine: Dec 02, 2015 Seasonal Allergies Seasonal Allergies: No Past Medical History Surgeries: Yes (aneurysm repair in [address]) Appendectomy, Tonsillectomy Respiratory: Yes COPD, Emphysema Currently Using CPAP: No Currently Using BIPAP: No Cardiac: Yes Atrial Fibrillation, Hypertension, Syncope Neurological: Yes (anurysm repair 2000) Reproductive Disorders: No Sexually Transmitted Disease: No HIV/AIDS: No Genitourinary: No Gastrointestinal: No Musculoskeletal: Yes ("not significant" ) Arthritis Endocrine: No HEENT: Yes Cataract Hearing Impairment: Hard of Hearing Cancer: No Psychosocial: Yes Anxiety Integumentary: No Blood Disorders: No Adverse Reaction/Blood Tranf: No Family Medical History No Pertinent Family Hx Physical Exam Vital Signs Capillary Refill : General Appearance: WD/WN, no apparent distress HEENT: PERRL/EOMI, normal ENT inspection Neck: non-tender, full range of motion Respiratory: no respiratory distress, no accessory muscle use Gastrointestinal: normal bowel sounds, non tender Hips: bilateral hip non-tender, bilateral hip normal inspection, bilateral hip normal range of motion Legs: right leg other (there is a superficial skin tear 3 cm to lateral left leg with eschar over this area that was open skin. minimal surrounding erythema. no drainage. ) Knees: bilateral knee non-tender, bilateral knee normal inspection, bilateral knee normal range of motion Ankles: bilateral ankle non-tender, bilateral ankle normal inspection, bilateral ankle normal range of motion Neurologic/Psychiatric: alert, normal mood/affect, oriented x 3 Skin: normal color, warm/dry Departure Impression Primary Impression: Skin tear of leg Disposition: 01 HOME, SELF-CARE Condition: Stable Departure-Patient Inst. Decision time for Depature: 18:33 Referrals: CHI SANTANA DO (PCP/Family) Primary Care Physician Patient Instructions: NO INSTRUCTIONS GIVEN Add. Discharge Instructions: 1. Follow-up with your doctor later this week for recheck. Take the antibiotics as directed. Return to ER for any fevers or chills. I would leave this open to air and allow it to heal just as you've been doing. Scripts Cephalexin (Keflex) 500 Mg Capsule 500 MG PO TID, #21 CAP Prov: JOANNA SARAH APRN 06/10/17 JOANNA SARAH APRN Jun 10, 2017 18:34
[2017-06-10 18:43] VITALS: BP 137/112
[2017-06-10] MEDS ORDERED: CEPHALEXIN 250 MG (KEFLEX) CAP PO ONE (18:45)
== END 2017-06-10 18:43 | disposition home or self-care (01) ==
LOC: EDUNIT# 18:22 → ER 18:23
DX: S81.811A Laceration without foreign body, right lower leg, initial encounter (principal); I48.91 Unspecified atrial fibrillation; I10 Essential (primary) hypertension; F41.9 Anxiety disorder, unspecified; J43.9 Emphysema, unspecified; Z90.89 Acquired absence of other organs; Z87.891 Personal history of nicotine dependence; Z79.82 Long term (current) use of aspirin; Z79.51 Long term (current) use of inhaled steroids; Z98.890 Other specified postprocedural states; W26.9XXA Contact with unspecified sharp object(s), initial encounter
CPT/HCPCS: 99283

== ENCOUNTER → 2017-06-17 | Outpatient (CLI) | payer MEDICARE, BC ==
[~2017-06-17] MED LIST changes: +CEPH-507 PO; -IPRA3AMP INH; +IPRA3AMP31 INH
--- NOTE | 2017-06-17 12:29 | Diagnostic Imaging Report ---
PROCEDURE: CT chest without contrast. TECHNIQUE: Multiple contiguous axial images were obtained through the chest without the use of intravenous contrast. INDICATION: Pulmonary nodule, followup. CORRELATION STUDY: CT chest of 09/05/2016, 05/02/2016. FINDINGS: Heart size is enlarged with rather dense coronary artery calcification. Thoracic aortic contour is unremarkable with wall calcification. No definitive pathologically enlarged mediastinal lymph nodes. Lung watts with emphysematous changes. No infiltrate. Faint nodule in the anterior basilar aspect of the right upper lobe (image 17 series 3). Maximum dimension is 4 mm, previously 4 to 5 mm. Rounded solid nodule in the medial left lower lobe (image 29 series 3) is 10 x 7 mm, previously maximum dimension was 10 mm. Parenchymal density in the lingula and fissure plane persists, likely area of scarring or thickening. Posteromedial right diaphragmatic defect with herniated fat is present. Visualized portion of the upper abdomen is relatively unremarkable. Rather advanced multilevel degenerative changes about the of thoracic spine with bridging osteophytes present. Some areas of fusion are present across disc spaces. IMPRESSION: 1. Stable appearance of the bilateral pulmonary nodules. Followup imaging in approximately 6 to 12 months would be recommended. A total of two-year timeframe of stability is recommended to suggest potential benign process. 2. Cardiac enlargement with rather significant coronary artery calcification. Dictated by: Dictated on workstation # [id number]
== END ==
LOC: RAD 11:11
PROVIDERS: ATTEND Nurse Practitioner Family
DX: R91.8 Other nonspecific abnormal finding of lung field (principal); I25.10 Atherosclerotic heart disease of native coronary artery without angina pectoris; I51.7 Cardiomegaly; J43.8 Other emphysema; F17.201 Nicotine dependence, unspecified, in remission
CPT/HCPCS: 71250

== ENCOUNTER → 2017-12-16 | Outpatient (CLI) | payer MEDICARE, BC ==
[~2017-12-16] MED LIST changes: -LOSA100T28 PO; +LOSA100T8 PO
--- NOTE | 2017-12-16 13:12 | Diagnostic Imaging Report ---
PROCEDURE: CT chest without contrast. TECHNIQUE: Multiple contiguous axial images were obtained through the chest without the use of intravenous contrast. INDICATION: Shortness of breath, tobacco use. FINDINGS: The previous CT chest exam performed on 06/17/2017 noted a 4 mm nodule in the left upper lung and a 10 x 7 mm nodule in the medial left lower lobe. Those findings are again evident on this study and do not seem to have changed significantly (image 25 of 54 and image 42 of 54). In retrospect, these findings were also present on the prior CT chest exam of 05/02/16 and appear stable when compared to that exam. There is no other parenchymal lung mass identified. The chronic pulmonary changes seen on the prior exam are again visualized and no different. There is no sign of failure, pneumonia or pleural effusion to indicate an acute abnormality. The heart is stable in size. Coronary artery calcifications are noted. The aorta is not abnormally dilated. There is no obvious mediastinal or hilar adenopathy. The thyroid gland is generally unremarkable. The sections through the upper abdomen fail to show any sign of an acute abnormality. The bone windows are unremarkable for a fracture or a destructive lesion. There is severe degenerative disc and bony disease involving the mid thoracic spine and the thoracolumbar junction. There is no obvious breast mass. IMPRESSION: 1. There is chronic pulmonary disease but there is no evidence for an acute cardiopulmonary abnormality. 2. The small nodule in the right upper lung and the roughly 1 cm nodule in the left lower lobe seen previously are again evident and no different. The stability of these findings over a roughly 18 month period would suggest that they are not related to an aggressive neoplastic process. A six-month followup CT chest exam would be recommended for continued evaluation, however. Dictated by: Dictated on workstation # [id number]
== END ==
LOC: RAD 09:28
PROVIDERS: ATTEND Internal Medicine Critical Care Medicine
DX: J43.8 Other emphysema (principal); R91.1 Solitary pulmonary nodule; Z72.0 Tobacco use
CPT/HCPCS: 71250

== ENCOUNTER 2017-12-24 16:19 | Emergency (ER) | payer MEDICARE, BC ==
[~2017-12-24] VITALS: Ht 160 cm; Wt 50.3 kg
--- OUTSIDE RECORDS SUMMARY | 2017-12-24 16:27 | XMS REPORT | Continuity of Care Document ---
Author Author [facility] Organization [facility] [address] Address Unknown Phone Unavailable Allergies Active Description Code Type Severity Reaction Onset Reported/Identified Relationship to Patient Clinical Status Yes No Known Drug Allergies [id number] Drug Allergy Unknown N/A 06/26/2015 Medications There [...] Ot 496 CHR AIRWAY OBSTRUCT NEC 07/07/2013 BOED ESQUIVEL FACC, JESSICA FACP CCDS Ot 780.4 [...] MD Ot M19.90 UNSPECIFIED OSTEOARTHRITIS, UNSPECIFIED 06/28/2015 FEILCIA DOUGLASS MD Ot Z99.81 DEPENDENCE ON SUPPLEMENTAL [...] FORMS OF DYSPNEA 01/11/2016 BAIMA, LUIS L SOCK LINER Ot I10 ESSENTIAL (PRIMARY) HYPERTENSION 01/11/2016 BAIMA, LUIS L SOCK LINER Ot I48.0 PAROXYSMAL ATRIAL FIBRILLATION 01/11/2016 BAIMA, LUIS L SOCK LINER Ot R06.09 OTHER FORMS OF DYSPNEA 01/11/2016 BAIMA, LUIS L SOCK LINER Ot I10 ESSENTIAL (PRIMARY) HYPERTENSION 01/11/2016 BAIMA, LUIS L SOCK LINER Ot I48.0 PAROXYSMAL ATRIAL FIBRILLATION 01/11/2016 BAIMA, LUIS L SOCK LINER Ot R06.09 OTHER FORMS OF DYSPNEA 01/12/2016 BAIMA, LUIS L SOCK LINER Ot I10 ESSENTIAL (PRIMARY) HYPERTENSION 01/12/2016 BAIMA, LUIS L SOCK LINER Ot I48.0 PAROXYSMAL ATRIAL FIBRILLATION 01/12/2016 BAIMA, LUIS L SOCK LINER Ot R06.09 OTHER FORMS OF DYSPNEA 01/16/2016 BAIMA, LUIS L SOCK LINER Ot I10 ESSENTIAL (PRIMARY) HYPERTENSION 01/16/2016 BAIMA, LUIS L SOCK LINER Ot I48.0 PAROXYSMAL ATRIAL FIBRILLATION 01/16/2016 BAIMA, LUIS L SOCK LINER Ot R06.09 OTHER FORMS OF DYSPNEA 01/31/2016 BAIMA, LUIS L SOCK LINER Ot I10 ESSENTIAL (PRIMARY) HYPERTENSION 01/31/2016 BAIMA, LUIS L SOCK LINER Ot I48.0 PAROXYSMAL ATRIAL FIBRILLATION 01/31/2016 BAIMA, LUIS L SOCK LINER Ot R06.09 OTHER FORMS OF DYSPNEA 02/28/2016 [...] CCDS Ot I25.10 ATHSCL HEART DISEASE OF [place] CORONARY 05/03/2016 OBED ESQUIVEL FACC, ALI FACP [...] 05/13/2016 BELINDA BURNHAM DO Wilbert Ot Z79.02 SEAM FINISHER (CURRENT) USE OF ANTITHROMBOTI 05/13/2016 CHACHA CAMPOS BELINDA Wilbert Ot Z79.82 SEAM FINISHER (CURRENT) USE OF ASPIRIN 05/13/2016 CHACHA BELINDA CAMPOS Ot Z79.899 OTHER SEAM FINISHER (CURRENT) DRUG THERAPY 05/14/2016 OBED ESQUIVEL FACC, ALI FACP CCDS Ot I25.10 ATHSCL HEART DISEASE OF [place] CORONARY 05/14/2016 OBED ESQUIVEL FACC, ALI FACP CCDS Ot I25.10 ATHSCL HEART DISEASE OF [place] CORONARY 05/14/2016 OBED ESQUIVEL FACC, ALI FACP [...] CCDS Ot I25.10 ATHSCL HEART DISEASE OF [place] CORONARY 05/15/2016 OBED ESQUIVEL FACC, ALI FACP [...] CCDS Ot I25.10 ATHSCL HEART DISEASE OF [place] CORONARY 05/15/2016 OBED ESQUIVEL FACC, ALI FACP CCDS Ot I48.0 PAROXYSMAL ATRIAL FIBRILLATION 05/15/2016 OBED ESQUIVEL FACC, ALI FACP CCDS Ot I72.4 ANEURYSM OF ARTERY OF LOWER EXTREMITY 05/15/2016 OBDE ESQUIVEL FACC, ALI FACP CCDS Ot J43.8 OTHER EMPHYSEMA 05/15/2016 OBED DEUÑAS, ALI FACP CCDS Ot R06.09 OTHER FORMS OF DYSPNEA 05/15/2016 OBED ESQUIVEL FACC, ALI FACP CCDS Ot I25.10 ATHSCL HEART DISEASE OF [place] CORONARY 05/15/2016 OBED ESQUIVEL FACC, ALI FACP CCDS Ot I48.0 PAROXYSMAL ATRIAL FIBRILLATION 05/15/2016 OBED ESQUIVEL FACC, ALI FACP CCDS Ot I72.4 ANEURYSM OF ARTERY OF LOWER EXTREMITY 05/15/2016 OBED ESQUIVEL FACC, ALI FACP CCDS Ot J43.8 OTHER EMPHYSEMA 05/15/2016 OBED DUEÑAS, ALI FACP CCDS Ot R06.09 OTHER FORMS OF DYSPNEA 05/19/2016 BELINDA BURNHAM DO Ot I10 ESSENTIAL (PRIMARY) HYPERTENSION 05/19/2016 [...] STATUS 05/19/2016 BELINDA BURNHAM DO Ot Z79.02 SHELTER (CURRENT) USE OF ANTITHROMBOTI 05/19/2016 BELINDA BURNHAM DO, Ot Z79.82 SHELTER (CURRENT) USE OF ASPIRIN 05/19/2016 BELINDA BURNHAM DO, Ot Z79.899 OTHER SHELTER (CURRENT) DRUG THERAPY 09/02/2016 LUIS MAYS Ot I10 ESSENTIAL (PRIMARY) HYPERTENSION 09/02/2016 LUIS MAYS Ot I48.0 PAROXYSMAL ATRIAL FIBRILLATION 09/02/2016 LUIS MAYS Ot R06.09 OTHER FORMS OF DYSPNEA 09/02/2016 JASON SCALES DO Ot J44.9 CHRONIC OBSTRUCTIVE PULMONARY DISEASE, U 09/02/2016 JASON SCALES DO Ot R06.09 OTHER FORMS OF DYSPNEA 09/06/2016 JO NEVAREZ APRN Ot F17.201 NICOTINE DEPENDENCE, UNSPECIFIED, IN REM 09/06/2016 JO NEVAREZ SENIOR ANALYST DEVELOPER Ot J43.8 OTHER EMPHYSEMA 09/06/2016 JO NEVAREZ SENIOR ANALYST DEVELOPER Ot R06.09 OTHER FORMS OF DYSPNEA 09/06/2016 FATMATA NEVAREZINE Cecil SENIOR ANALYST DEVELOPER Ot R91.8 OTHER NONSPECIFIC ABNORMAL FINDING OF LUCAS 09/27/2016 JO NEVAREZ SENIOR ANALYST DEVELOPER Ot F17.201 NICOTINE DEPENDENCE, UNSPECIFIED, IN REM 09/27/2016 JO NEVAREZ SENIOR ANALYST DEVELOPER Ot J43.8 OTHER EMPHYSEMA 09/27/2016 JO NEVAREZ SENIOR ANALYST DEVELOPER Ot R06.09 OTHER FORMS OF DYSPNEA 09/27/2016 JO NEVAREZ SENIOR ANALYST DEVELOPER Ot R91.8 OTHER NONSPECIFIC ABNORMAL FINDING OF LUCAS 12/20/2016 OBED ESQUIVEL FACC, ALI FACP CCDS Ot I10 ESSENTIAL (PRIMARY) HYPERTENSION 12/20/2016 OBED ESQUIVEL FACC, ALI FACP CCDS Ot I25.10 ATHSCL HEART DISEASE OF [place] CORONARY 12/20/2016 OBED DUEÑASC, ALI FACP CCDS [...] CCDS Ot I25.10 ATHSCL HEART DISEASE OF [place] CORONARY 01/10/2017 OBED DUEÑASC, ALI FACP CCDS [...] 03/15/2017 LYNNE ROBLES Ot Y92.002 BATHRM OF [facility] SN 03/15/2017 LYNNE ROBLES Ot Z23 ENCOUNTER FOR IMMUNIZATION 03/15/2017 LYNNE ROBLES Ot Z79.82 SEAM FINISHER (CURRENT) USE OF ASPIRIN 03/15/2017 LYNNE ROBLES Ot Z79.891 SEAM FINISHER (CURRENT) USE OF OPIATE ANALGE 03/15/2017 LYNNE [...] 03/17/2017 LYNNE ROBLES Ot Y92.002 BATHRM OF [facility] NON-INSTITUT RESDNCE SNGL 03/17/2017 LYNNE ROBLES Ot Z23 ENCOUNTER FOR IMMUNIZATION 03/17/2017 LYNNE ROBLES Ot Z79.82 SEAM FINISHER (CURRENT) USE OF ASPIRIN 03/17/2017 LYNNE ROBLES Ot Z79.891 SHELTER (CURRENT) USE OF OPIATE ANALGE 03/17/2017 LYNNE ROBLES Ot Z90.49 ACQUIRED ABSENCE OF OTHER SPECIFIED PART 06/10/2017 JOANNA SARAH APRN Ot F41.9 ANXIETY DISORDER, UNSPECIFIED 06/10/2017 JOANNA SARAH APRN Ot I10 ESSENTIAL (PRIMARY) HYPERTENSION 06/10/2017 JOANNA SARAH APRN Ot I48.91 UNSPECIFIED ATRIAL FIBRILLATION 06/10/2017 JOANNA SARAH APRN Ot J43.9 EMPHYSEMA, UNSPECIFIED 06/10/2017 JOANNA SARAH APRN Ot S81.811A LACERATION W/O FOREIGN BODY, RIGHT LOWER 06/10/2017 JOANNA SARAH APRN Ot W26.9XXA CONTACT WITH UNSPECIFIED SHARP OBJECT(S) 06/10/2017 JOANNA SARAH APRN Ot Z79.51 SEAM FINISHER (CURRENT) USE OF INHALED STERO 06/10/2017 JOANNA SARAH APRN Ot Z79.82 SEAM FINISHER (CURRENT) USE OF ASPIRIN 06/10/2017 JOANNA SARAH APRN Ot Z87.891 PERSONAL HISTORY OF NICOTINE DEPENDENCE 06/10/2017 JOANNA SARAH APRN Ot Z90.89 ACQUIRED ABSENCE OF OTHER ORGANS 06/10/2017 JOANNA SARAH APRN Ot Z98.890 OTHER SPECIFIED POSTPROCEDURAL STATES 06/11/2017 EVONNE ESQUIVEL, FELICIA Orourke Ot V76.12 OTH SCREEN MAMMO-MALIGN NEOPLASM OF [place] 06/11/2017 OBED ESQUIVEL FACC, JESSICA FACP CCDS Ot 305.1 TOBACCO USE DISORDER 06/11/2017 OBED ESQUIVEL FACC, JESSICA FACP CCDS Ot 401.9 HYPERTENSION NOS 06/11/2017 OBED ESQUIVEL FACC, JESSICA FACP CCDS Ot 427.81 SINOATRIAL NODE DYSFUNCT 06/11/2017 OBED ESQUIVEL FACC, JESSICA FACP CCDS Ot 786.09 RESPIRATORY ABNORM NEC 06/11/2017 FELICIA DOUGLASS MD Ot V76.12 OTH SCREEN MAMMO-MALIGN NEOPLASM OF [place] 06/11/2017 FELICIA DOUGLASS MD Ot Z12.31 ENCNTR SCREEN MAMMOGRAM FOR MALIGNANT NE 06/11/2017 FELICIA DOUGLASS MD Ot R92.8 OTH ABN AND INCONCLUSIVE FINDINGS ON DX 06/11/2017 LUIS MAYS SOCK LINER Ot I10 ESSENTIAL (PRIMARY) HYPERTENSION 06/11/2017 LUIS MAYS SOCK LINER Ot I48.0 PAROXYSMAL ATRIAL FIBRILLATION 06/11/2017 LUIS MAYS SOCK LINER Ot R06.09 OTHER FORMS OF DYSPNEA 06/11/2017 JASON SCALES DO Ot J44.9 CHRONIC OBSTRUCTIVE PULMONARY DISEASE, U 06/11/2017 JASON SCALES DO Ot R06.09 OTHER FORMS OF DYSPNEA 06/11/2017 JO NEVAREZ SENIOR ANALYST DEVELOPER Ot F17.201 NICOTINE DEPENDENCE, UNSPECIFIED, IN REM 06/11/2017 JO NEVAREZ SENIOR ANALYST DEVELOPER Ot J43.8 OTHER EMPHYSEMA 06/11/2017 JO NEVAREZ SENIOR ANALYST DEVELOPER Ot R06.09 OTHER FORMS OF DYSPNEA 06/11/2017 JO NEVAREZ SENIOR ANALYST DEVELOPER Ot R91.8 OTHER NONSPECIFIC ABNORMAL FINDING OF LUC[place] 06/11/2017 OBED ESQUIVEL FACC, JESSICA FACP CCDS Ot I10 ESSENTIAL (PRIMARY) HYPERTENSION 06/11/2017 OBED ESQUIVEL FACC, JESSICA FACP CCDS Ot I25.10 ATHSCL HEART DISEASE OF [place] CORONARY 06/11/2017 OBED ESQUIVEL FACC, JESSICA FACP CCDS Ot I25.5 ISCHEMIC CARDIOMYOPATHY 06/11/2017 OBED ESQUIVEL FACC, ALI FACP CCDS Ot I48.0 PAROXYSMAL ATRIAL FIBRILLATION 06/11/2017 OBED ESQUIVEL FACC, JESSICA FACP CCDS Ot I65.23 OCCLUSION AND STENOSIS OF BILATERAL KHAN 06/11/2017 OBED ESQUIVEL FACC, JESSICA FACP CCDS Ot J43.8 OTHER EMPHYSEMA 06/11/2017 OBED ESQUIVEL FACC, ALI FACP CCDS Ot Z72.0 TOBACCO USE 06/12/2017 JOANNA SARAH APRN Ot F41.9 ANXIETY DISORDER, UNSPECIFIED 06/12/2017 JOANAN SARAH SENIOR ANALYST DEVELOPER Ot I10 ESSENTIAL (PRIMARY) HYPERTENSION 06/12/2017 JOANNA SARAH APRN Ot I48.91 UNSPECIFIED ATRIAL FIBRILLATION 06/12/2017 JOANNA SARAH APRN Ot J43.9 EMPHYSEMA, UNSPECIFIED 06/12/2017 JOANNA SARAH SENIOR ANALYST DEVELOPER Ot S81.811A LACERATION W/O FOREIGN BODY, RIGHT LOWER 06/12/2017 JOANNA SARAH APRN Ot W26.9XXA CONTACT WITH UNSPECIFIED SHARP OBJECT(S) 06/12/2017 JOANNA SARAH APRN Ot Z79.51 SEAM FINISHER (CURRENT) USE OF INHALED STERO 06/12/2017 JOANNA SARAH APRN Ot Z79.82 SEAM FINISHER (CURRENT) USE OF ASPIRIN 06/12/2017 JOANNA SARAH APRN Ot Z87.891 PERSONAL HISTORY OF NICOTINE DEPENDENCE 06/12/2017 JOANNA SARAH APRN Ot Z90.89 ACQUIRED ABSENCE OF OTHER ORGANS 06/12/2017 JOANNA SARAH APRN Ot Z98.890 OTHER SPECIFIED POSTPROCEDURAL STATES 06/13/2017 FELICIA DOUGLASS MD Ot V76.12 OTH SCREEN MAMMO-MALIGN NEOPLASM OF [place] 06/13/2017 OBED ESQUIVEL FACC, ALI FACP CCDS Ot 305.1 TOBACCO USE DISORDER 06/13/2017 OBED ESQUIVEL FACC, ALI FACP CCDS Ot 401.9 HYPERTENSION NOS 06/13/2017 OBED ESQUIVEL FACC, ALI FACP CCDS Ot 427.81 SINOATRIAL NODE DYSFUNCT 06/13/2017 OBED ESQUIVEL FACC, ALI FACP CCDS Ot 786.09 RESPIRATORY ABNORM NEC 06/13/2017 FELICIA DOUGLASS MD Ot V76.12 OTH SCREEN MAMMO-MALIGN NEOPLASM OF [place] 06/13/2017 FELICIA DOUGLASS MD Ot Z12.31 ENCNTR SCREEN MAMMOGRAM FOR MALIGNANT NE 06/13/2017 FELICIA DOUGLASS MD Ot R92.8 OTH ABN AND INCONCLUSIVE FINDINGS ON DX 06/13/2017 LUIS MAYS SOCK LINER Ot I10 ESSENTIAL (PRIMARY) HYPERTENSION 06/13/2017 ANDRZEJLUIS HERNANDEZ SOCK LINER Ot I48.0 PAROXYSMAL ATRIAL FIBRILLATION 06/13/2017 ANDRZEJLUIS HERNANDEZ SOCK LINER Ot R06.09 OTHER FORMS OF DYSPNEA 06/13/2017 JASON SCALES DO Ot J44.9 CHRONIC OBSTRUCTIVE PULMONARY DISEASE, U 06/13/2017 JASON SCALES DO Ot R06.09 OTHER FORMS OF DYSPNEA 06/13/2017 JO NEVAREZ SENIOR ANALYST DEVELOPER Ot F17.201 NICOTINE DEPENDENCE, UNSPECIFIED, IN REM 06/13/2017 JO NEVAREZ SENIOR ANALYST DEVELOPER Ot J43.8 OTHER EMPHYSEMA 06/13/2017 JO NEVAREZ APRN Ot R06.09 OTHER FORMS OF DYSPNEA 06/13/2017 JO NEVAREZ SENIOR ANALYST DEVELOPER Ot R91.8 OTHER NONSPECIFIC ABNORMAL FINDING OF [place]UC[place] 06/13/2017 OBED ESQUIVEL FACC, ALI FACP CCDS Ot I10 ESSENTIAL (PRIMARY) HYPERTENSION 06/13/2017 OBED ESQUIVEL FACC, ALI FACP CCDS Ot I25.10 ATHSCL HEART DISEASE OF [place] CORONARY 06/13/2017 OBED ESQUIVEL FACC, ALI FACP CCDS Ot I25.5 ISCHEMIC CARDIOMYOPATHY 06/13/2017 OBED ESQUIVEL FACC, ALI FACP CCDS Ot I48.0 PAROXYSMAL ATRIAL FIBRILLATION 06/13/2017 OBED ESQUIVEL FACC, ALI FACP CCDS Ot I65.23 OCCLUSION AND STENOSIS OF BILATERAL KHAN 06/13/2017 OBED ESQUIVEL FACC, ALI FACP CCDS Ot J43.8 OTHER EMPHYSEMA 06/13/2017 OBED DUEÑASC, ALI FACP CCDS Ot Z72.0 TOBACCO USE 06/18/2017 JO NEVAREZ SENIOR ANALYST DEVELOPER Ot F17.201 NICOTINE DEPENDENCE, UNSPECIFIED, IN REM 06/18/2017 JO NEVAREZ SENIOR ANALYST DEVELOPER Ot I25.10 ATHSCL HEART DISEASE OF [place] CORONARY 06/18/2017 JO NEVAREZ SENIOR ANALYST DEVELOPER Ot I51.7 CARDIOMEGALY 06/18/2017 JO NEVAREZ SENIOR ANALYST DEVELOPER Ot J43.8 OTHER EMPHYSEMA 06/18/2017 JO NEVAREZ SENIOR ANALYST DEVELOPER Ot R91.8 OTHER NONSPECIFIC ABNORMAL FINDING OF [place]UC[place] 07/14/2017 JO NEVAREZ SENIOR ANALYST DEVELOPER Ot F17.201 NICOTINE DEPENDENCE, UNSPECIFIED, IN REM 07/14/2017 JO NEVAREZ SENIOR ANALYST DEVELOPER Ot I25.10 ATHSCL HEART DISEASE OF [place] CORONARY 07/14/2017 JO NEVAREZ SENIOR ANALYST DEVELOPER Ot I51.7 CARDIOMEGALY 07/14/2017 JO NEVAREZ SENIOR ANALYST DEVELOPER Ot J43.8 OTHER EMPHYSEMA 07/14/2017 JO NEVAREZ SENIOR ANALYST DEVELOPER Ot R91.8 OTHER NONSPECIFIC ABNORMAL FINDING OF LUC[place] 12/11/2017 FELICIA DOUGLASS MD Ot V76.12 OTH SCREEN MAMMO-MALIGN NEOPLASM OF [place] 12/11/2017 OBED ESQUIVEL FACC, ALI FACP CCDS Ot 305.1 TOBACCO USE DISORDER 12/11/2017 OBED ESQUIVEL FACC, ALI FACP CCDS Ot 401.9 HYPERTENSION NOS 12/11/2017 OBED ESQUIVEL FACC, ALI FACP CCDS Ot 427.81 SINOATRIAL NODE DYSFUNCT 12/11/2017 OBED ESQUIVEL FACC, ALI FACP CCDS Ot 786.09 RESPIRATORY ABNORM NEC 12/11/2017 FELICIA DOUGLASS MD Ot V76.12 OTH SCREEN MAMMO-MALIGN NEOPLASM OF [place] 12/11/2017 FELICIA DOUGLASS MD Ot Z12.31 ENCNTR SCREEN MAMMOGRAM FOR MALIGNANT NE 12/11/2017 FELICIA DOUGLASS MD Ot R92.8 OTH ABN AND INCONCLUSIVE FINDINGS ON DX 12/11/2017 LUIS MAYS SOCK LINER Ot I10 ESSENTIAL (PRIMARY) HYPERTENSION 12/11/2017 LUIS MAYS SOCK LINER Ot I48.0 PAROXYSMAL ATRIAL FIBRILLATION 12/11/2017 LUIS MAYS SOCK LINER Ot R06.09 OTHER FORMS OF DYSPNEA 12/11/2017 JASON SCALES DO Ot J44.9 CHRONIC OBSTRUCTIVE PULMONARY DISEASE, U 12/11/2017 JASON SCALES DO Ot R06.09 OTHER FORMS OF DYSPNEA 12/11/2017 JO NEVAREZ SENIOR ANALYST DEVELOPER Ot F17.201 NICOTINE DEPENDENCE, UNSPECIFIED, IN REM 12/11/2017 JO NEVAREZ SENIOR ANALYST DEVELOPER Ot J43.8 OTHER EMPHYSEMA 12/11/2017 JO NEVAREZ SENIOR ANALYST DEVELOPER Ot R06.09 OTHER FORMS OF DYSPNEA 12/11/2017 JO NEVAREZ SENIOR ANALYST DEVELOPER Ot R91.8 OTHER NONSPECIFIC ABNORMAL FINDING OF LUCAS 12/11/2017 ROQUE, JO Jacob SENIOR ANALYST DEVELOPER Ot F17.201 NICOTINE DEPENDENCE, UNSPECIFIED, IN REM 12/11/2017 ROQUE JO Jacob SENIOR ANALYST DEVELOPER Ot I25.10 ATHSCL HEART DISEASE OF [place] CORONARY 12/11/2017 ROQUEFATMATA HENNESSYMARTITA Jacob SENIOR ANALYST DEVELOPER Ot I51.7 CARDIOMEGALY 12/11/2017 JO NEVAREZ SENIOR ANALYST DEVELOPER Ot J43.8 OTHER EMPHYSEMA 12/11/2017 ROQUE JO Jacob SENIOR ANALYST DEVELOPER Ot R91.8 OTHER NONSPECIFIC ABNORMAL FINDING OF LUCAS 12/11/2017 OBED ESQUIVEL FACC, ALI FACP CCDS Ot I10 ESSENTIAL (PRIMARY) HYPERTENSION 12/11/2017 OBED ESQUIVEL FACC, ALI FACP CCDS Ot I25.10 ATHSCL HEART DISEASE OF [place] CORONARY 12/11/2017 OBED ESQUIVEL FACC, ALI FACP CCDS Ot I25.5 ISCHEMIC CARDIOMYOPATHY 12/11/2017 OBED ESQUIVEL FACC, ALI FACP CCDS Ot I48.0 PAROXYSMAL ATRIAL FIBRILLATION 12/11/2017 OBED ESQUIVEL FACC, ALI FACP CCDS Ot I65.23 OCCLUSION AND STENOSIS OF BILATERAL KHAN 12/11/2017 OBED ESQUIVEL FACC, ALI FACP CCDS Ot J43.8 OTHER EMPHYSEMA 12/11/2017 OBED ESQUIVEL FACC, ALI FACP CCDS Ot Z72.0 TOBACCO USE 12/16/2017 FELICIA DOUGLASS MD Ot V76.12 OTH SCREEN MAMMO-MALIGN NEOPLASM OF [place] 12/16/2017 OBED ESQUIVEL FACC, ALI FACP CCDS Ot 305.1 TOBACCO USE DISORDER 12/16/2017 OBED DUEÑASC, ALI FACP CCDS Ot 401.9 HYPERTENSION NOS 12/16/2017 OBED ESQUIVEL FACC, ALI FACP CCDS Ot 427.81 SINOATRIAL NODE DYSFUNCT 12/16/2017 OBED ESQUIVEL FACC, ALI FACP CCDS Ot 786.09 RESPIRATORY ABNORM NEC 12/16/2017 FELICIA DOUGLASS MD Ot V76.12 OTH SCREEN MAMMO-MALIGN NEOPLASM OF [place] 12/16/2017 FELICIA DOUGLASS MD Ot Z12.31 ENCNTR SCREEN MAMMOGRAM FOR MALIGNANT NE 12/16/2017 FELICIA DOUGLASS MD Ot R92.8 OTH ABN AND INCONCLUSIVE FINDINGS ON DX 12/16/2017 LUIS MAYS SOCK LINER Ot I10 ESSENTIAL (PRIMARY) HYPERTENSION 12/16/2017 LUIS MAYS SOCK LINER Ot I48.0 PAROXYSMAL ATRIAL FIBRILLATION 12/16/2017 ANDRZEJLUIS HERNANDEZ SOCK LINER Ot R06.09 OTHER FORMS OF DYSPNEA 12/16/2017 JASON SCALES DO Ot J44.9 CHRONIC OBSTRUCTIVE PULMONARY DISEASE, U 12/16/2017 JASON SCALES DO Ot R06.09 OTHER FORMS OF DYSPNEA 12/16/2017 ROQUEFATMATA HENNESSYINE Cecil SENIOR ANALYST DEVELOPER Ot F17.201 NICOTINE DEPENDENCE, UNSPECIFIED, IN REM 12/16/2017 ROQUE, JO E SENIOR ANALYST DEVELOPER Ot J43.8 OTHER EMPHYSEMA 12/16/2017 ROQUE, JO Cecil SENIOR ANALYST DEVELOPER Ot R06.09 OTHER FORMS OF DYSPNEA 12/16/2017 ROQUE JO E SENIOR ANALYST DEVELOPER Ot R91.8 OTHER NONSPECIFIC ABNORMAL FINDING OF LUCAS 12/16/2017 ROQEUFATMATA HENNESSYINE E SENIOR ANALYST DEVELOPER Ot F17.201 NICOTINE DEPENDENCE, UNSPECIFIED, IN REM 12/16/2017 FATMATA NEVAREZINE Cecil SENIOR ANALYST DEVELOPER Ot I25.10 ATHSCL HEART DISEASE OF [place] CORONARY 12/16/2017 FATMATA NEVAREZINE E SENIOR ANALYST DEVELOPER Ot I51.7 CARDIOMEGALY 12/16/2017 FATMATA NEVAREZINE E SENIOR ANALYST DEVELOPER Ot J43.8 OTHER EMPHYSEMA 12/16/2017 ROQUEFATMATA HENNESSYINE Cecil SENIOR ANALYST DEVELOPER Ot R91.8 OTHER NONSPECIFIC ABNORMAL FINDING OF LUCAS 12/16/2017 OBED ESQUIVEL FACC, ALI FACP CCDS Ot I10 ESSENTIAL (PRIMARY) HYPERTENSION 12/16/2017 OBED ESQUIVEL FACC, ALI FACP CCDS Ot I25.10 ATHSCL HEART DISEASE OF [place] CORONARY 12/16/2017 OBED ESQUIVEL FACC, ALI FACP CCDS Ot I25.5 ISCHEMIC CARDIOMYOPATHY 12/16/2017 OBED ESQUIVEL FACC, ALI FACP CCDS Ot I48.0 PAROXYSMAL ATRIAL FIBRILLATION 12/16/2017 OBED ESQUIVEL FACC, ALI FACP CCDS Ot I65.23 OCCLUSION AND STENOSIS OF BILATERAL KHAN 12/16/2017 OBED ESQUIVEL FACC, ALI FACP CCDS Ot J43.8 OTHER EMPHYSEMA 12/16/2017 OBED ESQUIVEL FACC, ALI FACP CCDS Ot Z72.0 TOBACCO USE 12/17/2017 JASON SCALES DO, Ot J43.8 OTHER EMPHYSEMA 12/17/2017 JASON SCALES DO Ot R91.1 SOLITARY PULMONARY NODULE 12/17/2017 JASON SCALES DO Ot Z72.0 TOBACCO USE 12/22/2017 JASON SCALES DO Ot J43.8 OTHER EMPHYSEMA 12/22/2017 JASON SCALES DO Ot R91.1 SOLITARY PULMONARY NODULE 12/22/2017 JASON SCALES DO Ot Z72.0 TOBACCO USE Procedures Code Description Performed By Performed On [id number] MEASURE OF CARDIAC SAMPL PRESSURE, L H 05/01/2016 [id number] FLUOROSCOPY OF MULT COR ART USING L OSM 05/01/2016 [id number] FLUOROSCOPY OF LEFT HEART USING LOW OSMO 05/01/2016 [id number] FLUOROSCOPY OF THORACIC AORTA USING LOW 05/01/2016 [...] Status Pt. Type Provider Facility Loc./Unit Complaint [id number] 12/17/2017 12:06:00 12/17/2017 23:59:59 CLS Preadmit JO NEVAREZ SENIOR ANALYST DEVELOPER [facility] [address] RAD COPD [id number] 12/16/2017 09:28:00 12/16/2017 23:59:59 CLS Outpatient JASON SCALES DO [facility] [address] RAD J43.8 COPD [id number] 06/17/2017 11:11:00 06/17/2017 23:59:59 CLS Outpatient JO NEVAREZ SENIOR ANALYST DEVELOPER [facility] [address] RAD LUNG NODULE R91.1 [id number] 06/10/2017 18:23:00 06/10/2017 18:43:00 DIS Emergency JOANNA SARAH SENIOR ANALYST DEVELOPER [facility] [address] ER R LEG LAC [id number] 03/15/2017 15:15:00 03/15/2017 18:21:00 DIS Emergency LYNNE ROBLES [facility] [address] ER FALL YESTERDAY/ BRUISING ON FACE [id number] 12/19/2016 12:40:00 12/19/2016 23:59:59 CLS Outpatient JESSICA CLAY MD, FACC, FACP CCDS [facility] [address] CARD CAD I25.10 [id number] 09/05/2016 12:54:00 09/05/2016 23:59:59 CLS Outpatient JO NEVAREZ APRN [facility] [address] RAD COPD,[place] [id number] 05/14/2016 13:41:00 05/14/2016 18:45:00 DIS Outpatient JESSICA CLAY MD, FACC, FACP CCDS [facility] [address] RAD CAD,[place] [id number] 05/13/2016 11:07:00 05/13/2016 13:12:00 DIS Emergency BELINDA BURNHAM DO [facility] [address] ER BLEEDING ON SIDE OF HEAD [id number] 05/01/2016 10:58:00 05/03/2016 14:20:00 DIS Inpatient JESSICA CLAY MD, FACC, FACP CCDS [facility] [address] ICU NSTEMI COPD EXACERBATION [id number] 02/29/2016 10:15:00 02/29/2016 23:59:59 CLS Preadmit JASON SCALES DO [facility] [address] PULM COPD,[place] [id number] 01/11/2016 10:00:00 02/28/2016 00:01:00 DIS Outpatient JASON SCALES DO [facility] [address] PULM COPD,[place] [id number] 01/10/2016 14:59:00 01/10/2016 23:59:59 CLS Outpatient ANDRZEJLUIS HERNANDEZ Kateryna NAGEL [facility] [address] CARD BABC[place],HTN,I48.0 [id number] 11/23/2015 10:00:00 11/26/2015 00:01:00 DIS Outpatient JASON SCALES DO [facility] [address] PULM COPD,[place] [id number] 06/26/2015 17:52:00 06/30/2015 15:06:00 DIS Inpatient FELICIA DOUGLASS MD [facility] [address] 4TH COPD ACUTE EXACERBATION [id number] 06/23/2015 09:11:00 06/23/2015 23:59:59 CLS Outpatient FELICIA DOUGLASS MD [facility] [address] RAD ABNORMAL MAMMO [id number] 05/31/2015 11:35:00 05/31/2015 23:59:59 CLS Outpatient FELICIA DOUGLASS MD [facility] [address] RAD SCREENING [id number] 11/17/2014 11:36:00 11/17/2014 13:55:00 DIS Emergency NI MAKI MD [facility] [address] ER HEADACHE [id number] 05/26/2014 09:45:00 05/26/2014 23:59:59 CLS Outpatient FELICIA DOUGLASS MD [facility] [address] RAD SCREENING [id number] 08/26/2013 07:44:00 08/26/2013 23:59:59 CLS Outpatient JESSICA CLAY MD, FACC, FACP CCDS [facility] [address] CARD HTN,SSS [id number] 07/06/2013 17:30:00 07/07/2013 13:55:00 DIS Inpatient JESSICA CLAY MD, FACC, FACP CCDS [facility] [address] ICU PAROTSYSMAL SUPRAVATRICULAR TACHY CARDIA [id number] 05/25/2013 09:05:00 05/25/2013 23:59:59 CLS Outpatient EVONNE ESQUIVEL, FELICIA Orourke [facility] [address] RAD SCREENING 07/201612/23/2017 15:24:32 ACT Outpatient Mercedes Durand
--- NOTE | 2017-12-24 16:39 | ED Headache ---
General Stated Complaint: FALL,BRUISING AROUND EYE,PURPLE Source: patient Exam Limitations: no limitations History of Present Illness Date Seen by Provider: Dec 24, 2017 Time Seen by Provider: 16:36 Initial Comments To ER accompanied by her daughter with reports of a fall that occurred between 8 PM last night and 8 AM this morning. She then went to bed and laid down after the fall where she slipped until 2 PM today. She has hematoma and swelling around the left eye. Denies any pain to her joints such as hips or back. Obviously she did hit her head and she is on Eliquis for atrial fibrillation. She does drink "a couple" drinks of whiskey a day. 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 She did have a headache but she took some Tylenol and the headache is gone. Her blood pressure is elevated at 185/105. Heart rate 75. Timing/Duration: 4-6 hours Severity/Quality: moderate Location: frontal Associated Symptoms: No confusion, No nausea/vomiting Allergies and Home Medications Allergies Coded Allergies: No Known Drug Allergies (Unverified , 06/26/15) Home Medications Acetaminophen 500 Mg Tablet, 500 MG PO Q4H PRN for PAIN, (Reported) Aspirin 81 Mg Tablet.dr, 81 MG PO DAILY Prescribed by: LUIS MAYS on 05/03/16 1039 Atorvastatin Calcium 40 Mg Tablet, 40 MG PO HS Prescribed by: LUIS MAYS on 05/03/16 1039 Calcium Carbonate/Vitamin D3 1 Each Tablet, 1 TAB PO BID, (Reported) Cephalexin 500 Mg Capsule, 500 MG PO TID Prescribed by: JOANNA SARAH on 06/10/17 1834 Clopidogrel Bisulfate 75 Mg Tablet, 75 MG PO DAILY Prescribed by: LUIS MAYS on 05/03/16 1039 Fluticasone/Salmeterol 12 Gm Hfa.aer.ad, 2 PUFF IH BID, (Reported) Hydrocodone/Acetaminophen 1 Each Tablet, 0.5-1 EACH PO Q6H PRN for PAIN-SEVERE Prescribed by: LYNNE LUNA on 03/15/17 1749 Metoprolol Succinate 50 Mg Tab.er.24h, 50 MG PO DAILY Prescribed by: LUIS MAYS on 05/03/16 1039 Multivit-Min/FA/Lycopene/Lut 1 Each Tablet, 1 TAB PO DAILY, (Reported) Nystatin 100,000 Unit/1 Ml Oral.susp, 5 ML PO QID Prescribed by: LYNNE LUNA on 03/15/17 1749 Paroxetine HCl 12.5 Mg Tab.er.24h, 12.5 MG PO HS Prescribed by: CHI SANTANA on 05/03/16 1002 Tiotropium [place] 1 Inh Aerp, 2 PUFF IH DAILY, (Reported) Patient Home Medication List Home Medication List Reviewed: Yes Review of Systems Review of Systems Constitutional: see HPI Eyes: See HPI Ears, Nose, Mouth, Throat: no symptoms reported Respiratory: no symptoms reported, dyspnea on exertion Genitourinary: no symptoms reported Psychiatric/Neurological: See HPI Past Nqwfttt-Cfpipp-Xfdccv Hx Patient Social History Alcohol Beverage of Choice: Whiskey Type Used: Cigarettes Former Smoker, Quit: Jun 02, 2015 2nd Hand Smoke Exposure: No Recent Foreign Travel: No Contact w/Someone Who Travel: No Recent Hopitalizations: No Immunizations Up To Date Tetanus Booster (TDap): Less than 5yrs Date of Pneumonia Vaccine: Jan 01, 2009 Date of Influenza Vaccine: Dec 02, 2015 Seasonal Allergies Seasonal Allergies: No Past Medical History Surgeries: Yes (aneurysm repair in [address]) Appendectomy, Tonsillectomy Respiratory: Yes COPD, Emphysema Currently Using CPAP: No Currently Using BIPAP: No Cardiac: Yes Atrial Fibrillation, Hypertension, Syncope Neurological: Yes (anurysm repair 2000) Reproductive Disorders: No Sexually Transmitted Disease: No HIV/AIDS: No Genitourinary: No Gastrointestinal: No Musculoskeletal: Yes ("not significant" ) Arthritis Endocrine: No HEENT: Yes Cataract Hearing Impairment: Hard of Hearing Cancer: No Psychosocial: Yes Anxiety Integumentary: No Blood Disorders: No Adverse Reaction/Blood Tranf: No Family Medical History No Pertinent Family Hx Physical Exam Vital Signs Vital Signs - First Documented 12/24/17 16:20 Temp 97.5 Pulse 73 Resp 18 B/P (MAP) 196/134 (154) Pulse Ox 98 Capillary Refill : Height, Weight, BMI Height: 5'3.00" Weight: 114lbs. 0.0oz. 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 Periorbital ecchymosis on the left. This very small laceration just lateral and superior to the lateral border of the left eyebrow. There is no active bleeding. This is about 12 hours old so this will not be closed with sutures.) Neck: non-tender, full range of motion Respiratory: no respiratory distress, no accessory muscle use Extremities: normal range of motion, non-tender Psychiatric: alert, oriented x 3 Skin: normal color, warm/dry Progress/Results/Core Measures Results/Orders Lab Results Laboratory Tests Test 12/24/17 16:35 Range/Units White Blood Count 9.9 4.3-11.0 10^3/uL Red Blood Count 4.40 4.35-5.85 10^6/uL Hemoglobin 14.7 11.5-16.0 G/DL Hematocrit 44 35-52 % Mean Corpuscular Volume 99 80-99 FL Mean Corpuscular Hemoglobin 33 25-34 PG Mean Corpuscular Hemoglobin Concent 34 32-36 G/DL Red Cell Distribution Width 13.9 10.0-14.5 % Platelet Count 242 130-400 10^3/uL Mean Platelet Volume 10.4 7.4-10.4 FL Neutrophils (%) (Auto) 78 H 42-75 % Lymphocytes (%) (Auto) 12 12-44 % Monocytes (%) (Auto) 7 0-12 % Eosinophils (%) (Auto) 1 0-10 % Basophils (%) (Auto) 1 0-10 % Neutrophils # (Auto) 7.7 1.8-7.8 X 10^3 Lymphocytes # (Auto) 1.2 1.0-4.0 X 10^3 Monocytes # (Auto) 0.7 0.0-1.0 X 10^3 Eosinophils # (Auto) 0.1 0.0-0.3 10^3/uL Basophils # (Auto) 0.1 0.0-0.1 10^3/uL Prothrombin Time 13.1 12.2-14.7 SEC INR Comment 1.0 0.8-1.4 Activated Partial Thromboplast Time 35 24-35 SEC Sodium Level 139 135-145 MMOL/L Potassium Level 4.1 3.6-5.0 MMOL/L Chloride Level 99 98-107 MMOL/L Carbon Dioxide Level 26 21-32 MMOL/L Anion Gap 14 5-14 MMOL/L Blood Urea Nitrogen 8 7-18 MG/DL Creatinine 0.63 0.60-1.30 MG/DL Estimat Glomerular Filtration Rate > 60 BUN/Creatinine Ratio 13 Glucose Level 117 H 70-105 MG/DL Calcium Level 9.8 8.5-10.1 MG/DL Corrected Calcium 9.5 8.5-10.1 MG/DL Total Bilirubin 0.9 0.1-1.0 MG/DL Aspartate Amino Transf (AST/SGOT) 40 H 5-34 U/L Alanine Aminotransferase (ALT/SGPT) 26 0-55 U/L Alkaline Phosphatase 104 40-136 U/L Total Protein 7.8 6.4-8.2 GM/DL Albumin 4.4 3.2-4.5 GM/DL Serum Alcohol < 10 <10 MG/DL My Orders Orders - JOANNA SARAH APRN Cbc With Automated Diff (12/24/17 16:33) Comprehensive Metabolic Panel (12/24/17 16:33) Protime With Inr (12/24/17 16:33) Partial Thromboplastin Time (12/24/17 16:33) Ct Head/Face/Cervical Wo (12/24/17 16:33) Ns Iv 500 Ml (Sodium Chloride 0.9%) (12/24/17 16:45) Labetalol Injection (Normodyne Injection (12/24/17 16:45) Ekg Tracing (12/24/17 16:35) Ua Culture If Indicated (12/24/17 16:50) Labetalol Injection (Normodyne Injection (12/24/17 17:30) Alcohol (12/24/17 17:28) Medications Given in ED Vital Signs/I&O 12/24/17 12/24/17 16:20 18:28 Temp 97.5 Pulse 73 68 Resp 18 18 B/P (MAP) 196/134 (154) 141/86 (104) Pulse Ox 98 98 12/25/17 00:00 Intake Total 500 ml Balance 500 ml Diagnostic Imaging Diagonstic Imaging: Xray Comments NAME: LIV CARTER REC#: [id number] PT STATUS: REG ER : 1934 PHYSICIAN: JOANNA SARAH APRN ADMIT DATE: 12/24/17/ER Draft Date of Exam:12/24/17 CT HEAD/FACE/CERVICAL WO PROCEDURE: CT head, face, and cervical spine without contrast. TECHNIQUE: Multiple contiguous axial images were obtained through the head, neck, and facial bones without the use of intravenous contrast. Sagittal and coronal reformations through the cervical spine and facial bones were also performed. INDICATION: Bruising on the left side of the face, forehead, and cheek. Fall yesterday. Headache. COMPARISON: CT from 03/15/2017. FINDINGS: CT head: There is generalized parenchymal volume loss. 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 There is no midline shift or mass effect. No acute intracranial hemorrhage is seen. There are postsurgical changes from prior right frontal craniotomy. No calvarium fracture is seen. Aneurysm clipping is noted in the right cavernous sinus region. There is moderate soft tissue edema and laceration overlying the left frontal bone. CT face: The pterygoid plates are intact. The mandible appears intact. The zygomatic arches are intact. There is no fluid in the maxillary sinuses or the other paranasal sinuses. The orbits appear intact. There is soft tissue laceration and edema overlying the left frontal bone. Marked soft tissue edema is seen overlying the left malar region as well. No radiopaque foreign bodies are seen. No postseptal inflammation is seen. The globe appears to be intact. There are old nasal bone fractures. The mastoid air cells appear clear. CT cervical spine: There is straightening of the cervical lordosis. No significant spondylolisthesis is seen. There is severe degenerative change at the C3-C4, C4-C5, C5-C6, and C6-C7 vertebral levels. No acute fracture is seen. There is multilevel foraminal stenosis, particularly on the left at C6-C7 and C5-C6. Emphysematous changes are seen in the lung apices, with significant motion artifact. IMPRESSION: 1. No acute intracranial hemorrhage or calvarium fracture is seen. 2. Marked soft tissue edema with laceration overlying the left frontal bone. Additional marked soft tissue edema in the left malar and periorbital region. No facial fracture is seen. 3. Stable appearance of the aneurysm clipping and right frontal postsurgical changes. 4. Advanced degenerative changes in the cervical spine with no acute fracture seen. Dictated on workstation # [id number] Dict: 12/24/17 1751 Trans: 12/24/17 1804 [id number] [id number] Interpreted by: CHINTAN TALLEY MD Electronically signed by: Departure Communication (Admissions) 1716-BP 143/97 after 10mg IV labetalol. Pt in CT at this time. Impression Primary Impression: Traumatic hematoma of face Qualified Codes: S00.83XA - Contusion of other part of head, initial encounter Disposition: HOME, SELF-CARE Condition: Stable Departure-Patient Inst. Decision time for Depature: 18:10 Referrals: CHI SANTANA DO (PCP/Family) Primary Care Physician Patient Instructions: Contusion (DC) Add. Discharge Instructions: 1. Return to ER for any concerns 2. Follow-up with your doctor within 1 week for recheck. JOANNA SARAH FORENSIC PATHOLOGIST Dec 24, 2017 16:39
[2017-12-24] MEDS ORDERED: NS IV 500 ML 500 ML IV SCH (16:45)
[2017-12-24] MEDS ORDERED: LABETALOL HCL 20 MG/4 ML VIAL IV ONE ×2 (16:45→17:30)
[2017-12-24 16:46] LABS: BASOPHILS # (AUTO) 0.1 10^3/uL (0.0-0.1); BASOPHILS % (AUTO) 1 % (0-10); EOSINOPHILS # (AUTO) 0.1 10^3/uL (0.0-0.3); EOSINOPHILS % (AUTO) 1 % (0-10); HEMATOCRIT 44 % (35-52); HEMOGLOBIN 14.7 G/DL (11.5-16.0); LYMPHOCYTES # (AUTO) 1.2 X 10^3 (1.0-4.0); LYMPHOCYTES % (AUTO) 12 % (12-44); MEAN CORPUSCULAR HEMOGLOBIN 33 PG (25-34); MEAN CORPUSCULAR HGB CONC 34 G/DL (32-36); MEAN CORPUSCULAR VOLUME 99 FL (80-99); MEAN PLATELET VOLUME 10.4 FL (7.4-10.4); MONOCYTES # (AUTO) 0.7 X 10^3 (0.0-1.0); MONOCYTES % (AUTO) 7 % (0-12); NEUTROPHILS # (AUTO) 7.7 X 10^3 (1.8-7.8); NEUTROPHILS % (AUTO) 78 % (42-75); PLATELET COUNT 242 10^3/uL (130-400); RED CELL DISTRIBUTION WIDTH 13.9 % (10.0-14.5); WHITE BLOOD COUNT 9.9 10^3/uL (4.3-11.0)
[2017-12-24 17:01] LABS: PROTHROMBIN TIME PATIENT 13.1 SEC (12.2-14.7)
[2017-12-24 17:11] LABS: ALANINE AMINOTRANSFERASE 26 U/L (0-55); ALBUMIN 4.4 GM/DL (3.2-4.5); ALKALINE PHOSPHATASE 104 U/L (40-136); BILIRUBIN,TOTAL 0.9 MG/DL (0.1-1.0); BUN/CREATININE RATIO 13; CALCIUM 9.8 MG/DL (8.5-10.1); CARBON DIOXIDE 26 MMOL/L (21-32); CHLORIDE 99 MMOL/L (98-107); CREATININE SERUM 0.63 MG/DL (0.60-1.30); GFR ESTIMATED > 60; GLUCOSE 117 MG/DL (70-105); POTASSIUM 4.1 MMOL/L (3.6-5.0); SODIUM 139 MMOL/L (135-145); TOTAL PROTEIN 7.8 GM/DL (6.4-8.2)
--- NOTE | 2017-12-24 18:05 | Diagnostic Imaging Report ---
PROCEDURE: CT head, face, and cervical spine without contrast. TECHNIQUE: Multiple contiguous axial images were obtained through the head, neck, and facial bones without the use of intravenous contrast. Sagittal and coronal reformations through the cervical spine and facial bones were also performed. INDICATION: Bruising on the left side of the face, forehead, and cheek. Fall yesterday. Headache. COMPARISON: CT from 03/15/2017. FINDINGS: CT head: There is generalized parenchymal volume loss. 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 There is no midline shift or mass effect. No acute intracranial hemorrhage is seen. There are postsurgical changes from prior right frontal craniotomy. No calvarium fracture is seen. Aneurysm clipping is noted in the right cavernous sinus region. There is moderate soft tissue edema and laceration overlying the left frontal bone. CT face: The pterygoid plates are intact. The mandible appears intact. The zygomatic arches are intact. There is no fluid in the maxillary sinuses or the other paranasal sinuses. The orbits appear intact. There is soft tissue laceration and edema overlying the left frontal bone. Marked soft tissue edema is seen overlying the left malar region as well. No radiopaque foreign bodies are seen. No postseptal inflammation is seen. The globe appears to be intact. There are old nasal bone fractures. The mastoid air cells appear clear. CT cervical spine: There is straightening of the cervical lordosis. No significant spondylolisthesis is seen. There is severe degenerative change at the C3-C4, C4-C5, C5-C6, and C6-C7 vertebral levels. No acute fracture is seen. There is multilevel foraminal stenosis, particularly on the left at C6-C7 and C5-C6. Emphysematous changes are seen in the lung apices, with significant motion artifact. IMPRESSION: 1. No acute intracranial hemorrhage or calvarium fracture is seen. 2. Marked soft tissue edema with laceration overlying the left frontal bone. Additional marked soft tissue edema in the left malar and periorbital region. No facial fracture is seen. 3. Stable appearance of the aneurysm clipping and right frontal postsurgical changes. 4. Advanced degenerative changes in the cervical spine with no acute fracture seen. Dictated by: Dictated on workstation # [id number]
[2017-12-24 18:28] VITALS: BP 141/86
== END 2017-12-24 18:30 | disposition home or self-care (01) ==
LOC: EDUNIT# 16:19 → ER 16:20
DX: S05.12XA Contusion of eyeball and orbital tissues, left eye, initial encounter (principal); I48.91 Unspecified atrial fibrillation; J43.9 Emphysema, unspecified; I10 Essential (primary) hypertension; F41.9 Anxiety disorder, unspecified; Z79.82 Long term (current) use of aspirin; Z79.02 Long term (current) use of antithrombotics/antiplatelets; Z79.52 Long term (current) use of systemic steroids; Z79.01 Long term (current) use of anticoagulants; Z77.22 Contact with and (suspected) exposure to environmental tobacco smoke (acute) (chronic); Z90.89 Acquired absence of other organs; W01.0XXA Fall on same level from slipping, tripping and stumbling without subsequent striking against object, initial encounter
CPT/HCPCS: 36415; 70450; 70486; 72125; 80053; 80320; 85025; 85610; 85730; 93005; 96361; 96374

== ENCOUNTER → 2018-06-04 | Outpatient (CLI) | payer MEDICARE, BC ==
[~2018-06-04] MED LIST changes: +LOSA100T57 PO; -LOSA100T8 PO
--- NOTE | 2018-06-04 14:55 | Diagnostic Imaging Report ---
PROCEDURE: CT chest without contrast. TECHNIQUE: Multiple contiguous axial images were obtained through the chest without the use of intravenous contrast. Auto Exposure Controls were utilized during the CT exam to meet ALARA standards for radiation dose reduction. INDICATION: Followup lung nodules. Correlation is made with prior CT chest from 12/16/2017. No axillary lymphadenopathy is identified. Hilar and mediastinal evaluation is limited without intravenous contrast. No significant abnormality is seen. Coronary arterial calcifications are noted. No pericardial or pleural fluid is seen. A slightly irregular density in the medial aspect left upper lobe, image 15 is noted measuring 6 mm. This is not definitely present on prior exam and may represent an area of scarring or atelectasis. Nodular right upper lobe is stable at 4 mm, image 20. A left lower lobe nodule is stable at 9 mm, image 32. No other new abnormality is seen. There is some scarring in the left lower lobe. Upper abdomen is unremarkable. IMPRESSION: Stable bilateral pulmonary nodules. There is a new slightly irregular density in the left upper lobe which is indeterminate. Continued followup is recommended to confirm stability. Repeat study in six months is recommended. Dictated by: Dictated on workstation # [id number]
== END ==
LOC: RAD 12:35
PROVIDERS: ATTEND Nurse Practitioner Family
DX: J44.9 Chronic obstructive pulmonary disease, unspecified (principal); R91.8 Other nonspecific abnormal finding of lung field; Z72.0 Tobacco use
CPT/HCPCS: 71250

== ENCOUNTER 2018-08-18 15:00 | Outpatient (RCR) | payer MEDICARE, BC ==
[2018-07-30 14:55] VITALS: BP 120/82
[2018-07-30 15:45] VITALS: BP 120/60
[2018-08-04 14:40] VITALS: BP 138/82
[2018-08-04 15:42] VITALS: BP 130/80
[2018-08-06 15:00] VITALS: BP 126/80
[2018-08-06 15:43] VITALS: BP 118/70
[2018-08-11 14:45] VITALS: BP 120/60
[2018-08-13 14:30] VITALS: BP 137/82
[2018-08-13 15:40] VITALS: BP 118/76
[2018-08-18 14:50] VITALS: BP 150/80
[2018-08-18 15:58] VITALS: BP 130/60
[2018-08-20 15:15] VITALS: BP 142/60
[2018-08-20 15:55] VITALS: BP 140/80
[2018-08-25 15:15] VITALS: BP 160/60
[2018-08-25 15:50] VITALS: BP 116/70
[2018-09-01 14:50] VITALS: BP 137/80
[2018-09-01 15:49] VITALS: BP 130/60
[2018-09-10 15:00] VITALS: BP 150/60
[2018-09-10 15:56] VITALS: BP 120/60
== END 2018-10-04 | disposition home or self-care (01) ==
LOC: PULM 15:00
PROVIDERS: ATTEND Nurse Practitioner Family
DX: J44.9 Chronic obstructive pulmonary disease, unspecified (principal); R91.8 Other nonspecific abnormal finding of lung field; R09.02 Hypoxemia; R06.09 Other forms of dyspnea; Z72.0 Tobacco use
CPT/HCPCS: 99211

== ENCOUNTER → 2018-09-22 | Outpatient (CLI) | payer MEDICARE, BC ==
--- NOTE | 2018-09-22 15:19 | Diagnostic Imaging Report ---
PROCEDURE: US left lower extremity venous. TECHNIQUE: Multiple real-time grayscale images were obtained over the left lower extremity in various projections. Additional duplex Doppler and color Doppler images were also obtained. INDICATION: Left foot pain. There are no prior studies available for comparison. There is generally good blood flow and compressibility at all levels. There is no evidence for deep venous thrombosis in the left lower extremity. Impression: There is no evidence for deep venous thrombosis of the left lower extremity. Dictated by: Dictated on workstation # [id number]
--- NOTE | 2018-09-22 15:39 | Diagnostic Imaging Report ---
Clinical indication: Patient fell last week. Patient has swelling, redness and heat on top of foot. Exams: 1: X-ray of the left foot, 3 views. 2: X-ray of the left ankle, 3 views. Comparison: None. Findings: X-ray of the left foot and left ankle shows no acute fracture or dislocation. There is osteopenia involving the left foot and ankle. There is chronic appearing cortical thickening involving the mid diaphysis of the fourth metatarsal bone. There are small degenerative spurs involving the first MTP joint. There is a mildly hypertrophic calcaneal spur at the plantar attachment. The ankle mortise and syndesmotic joints are unremarkable. The visualized subtalar joints are unremarkable. There is mild swelling about the left ankle. Impression: 1: X-ray of the left foot in the left ankle shows no acute fracture or dislocation. 2: Degenerative disease of the left foot. 3: Osteopenia. Dictated by: Dictated on workstation # [id number]
== END ==
LOC: RAD 14:47
PROVIDERS: ATTEND Nurse Practitioner Family
DX: M19.072 Primary osteoarthritis, left ankle and foot (principal); M85.872 Other specified disorders of bone density and structure, left ankle and foot; W19.XXXA Unspecified fall, initial encounter
CPT/HCPCS: 73610; 73630

== ENCOUNTER → 2018-12-22 | Outpatient (CLI) | payer MEDICARE, BC ==
--- NOTE | 2018-12-22 15:04 | Diagnostic Imaging Report ---
CT CHEST WO TECHNIQUE: Multiple contiguous axial images were obtained through the chest without the use of intravenous contrast. All CT scans use one or more of the following dose optimizing techniques: automated exposure control, MA and/or KvP adjustment based on a patient size and exam type, or iterative reconstruction. INDICATION: Dyspnea on exertion. Pulmonary nodule. COMPARISON: 06/04/2018. FINDINGS: Lungs and airway: No endoluminal nodule within the trachea. Severe centrilobular emphysema is unchanged. The gently lobulated left lower lobe pulmonary nodule measuring 8.6 x 6.3 mm is unchanged. The mixed solid and groundglass nodule in the anterior aspect of the left upper lobe has resolved. Stable 4 mm right upper lobe pulmonary nodule. Pleura: No pleural effusion or pneumothorax. Heart and mediastinum: Thyroid is normal. No supraclavicular or axillary lymphadenopathy. No mediastinal, hilar, or juxtaphrenic lymphadenopathy. Fat-containing hiatal hernia is unchanged. Heart is normal in size without pericardial effusion. Extensive coronary artery calcifications are unchanged. Atherosclerotic aorta is similar. Upper abdomen: Punctate nonobstructing stone in the upper pole of the right kidney is unchanged. No acute abnormality in the upper abdomen. Musculoskeletal: Degenerative changes of thoracic spine are similar. No worrisome focal osseous lesion. IMPRESSION: 1. The mixed solid and groundglass nodule in the anterior aspect of left upper lobe has resolved and indicates this was due to a focus of infection/inflammation. 2. No change to indicate clinically active lung cancer. The dominant left lower lobe pulmonary nodule remains stable since 05/02/2016 exam. Dictated by: Dictated on workstation # [id number]
== END ==
LOC: RAD 11:51
PROVIDERS: ATTEND Nurse Practitioner Family
DX: J44.9 Chronic obstructive pulmonary disease, unspecified (principal); R91.1 Solitary pulmonary nodule; Z72.0 Tobacco use
CPT/HCPCS: 71250

== ENCOUNTER → 2019-03-17 | Outpatient (CLI) | payer MEDICARE, BC ==
[~2019-03-17] MED LIST changes: -DIGO125T PO; +DIGO125T3 PO; -METO-370 PO; +METO50TA7 PO
== END ==
LOC: CARD 12:52
PROVIDERS: ATTEND Nurse Practitioner Family
DX: I08.3 Combined rheumatic disorders of mitral, aortic and tricuspid valves (principal); I25.10 Atherosclerotic heart disease of native coronary artery without angina pectoris; I65.23 Occlusion and stenosis of bilateral carotid arteries; I11.9 Hypertensive heart disease without heart failure; I48.0 Paroxysmal atrial fibrillation
CPT/HCPCS: 93306

== ENCOUNTER 2020-10-13 11:05 | Inpatient (IN) | payer MEDICARE, BC ==
[~2020-10-13] VITALS: Ht 152.4 cm; Wt 45.1 kg
[~2020-10-13 11:05] MED LIST changes: +ACET325T49 PO; +ACHD5005 PO; +ACHYD1T PO; +ALPR.25T PO; -ALPR0.254 PO; +AMLO-250 PO; +ASCO100024 PO; -ASCO10006 PO; +ASPI-1238 PO; -ASPI-983 PO; +ATOR40TA70 PO; +FOLI1TAB33 PO; +FURO10VI IVP; -HYDR-3812 PO; +MTP25TSR PO; +MULT1TAB63 PO; +ONDA4TAB11 SL; +PANT40TA52 PO; +PANT40VI IV; +PARO40TA3 PO; +SENN-20 PO; -SULF1TAB35 PO; +SULF1TAB38 PO; +rocephin IV
[2020-10-13] MEDS ORDERED: PATIENT MAY USE OWN MEDS, ALL PO SCH (11:30)
[2020-10-13] MEDS ORDERED: ONDANSETRON 4 MG/2 ML (SDV) Z0FRAN IV PRN (11:30)
[2020-10-13 11:45] VITALS: BP 175/98
--- NOTE | 2020-10-13 11:59 | History & Physical ---
History of Present Illness History of Present Illness Reason for visit/HPI This is an 85 year old female who sustained a fall with a skin tear to her left lower leg/macias about 2 weeks ago--initially a pressure dressing was placed due to bleeding as she takes aspirin and eliquis daily. However, she was seen over that weekend at Urgent Care and started on doxycycline. She had a follow up in my office at the beginning of this week and the wound was almost completely closed and looking much better. She was instructed to finish her doxycycline and let us know if anything worsened. According to the patient and her daughter, about 2 days ago the leg became more red and swollen and the wound opened up more so she was instructed to come in for reassessment. She will be admitted for IV antibiotics with wound care consult. Date of Admission Oct 13, 2020 at 11:24 Date Seen by a Provider: Oct 13, 2020 Time Seen by a Provider: 11:53 I consulted on this patient on 10/13/20 11:53 Attending Physician Mercedes uDrand DO Admitting Physician Mercedes Durand DO Consult Wound Care--Dr. Riley Allergies and Home Medications Allergies Coded Allergies: No Known Drug Allergies (Unverified , 06/26/15) Home Medications Acetaminophen 500 Mg Tablet, 500 MG PO BID PRN for PAIN-MILD (1-4), (Reported) Amlodipine Besylate 5 Mg Tablet, 5 MG PO DAILY, (Reported) Apixaban 2.5 Mg Tablet, 2.5 MG PO BID, (Reported) Aspirin 81 Mg Tablet.dr, 81 MG PO DAILY, (Reported) Atorvastatin Calcium 40 Mg Tablet, 40 MG PO HS, (Reported) Calcium Carbonate/Vitamin D3 1 Each Tablet, 1 TAB PO DAILY, (Reported) Fluticasone/Salmeterol 12 Gm Hfa.aer.ad, 2 PUFF IH BID, (Reported) Folic Acid 1 Mg Tablet, 1 MG PO DAILY@0700 Prescribed by: SONYA COBOS on 04/14/19928 Hydrocodone Bit/Acetaminophen 1 Each Tablet, 1 EA PO Q4H PRN for PAIN-MODERATE (5-7) Prescribed by: SONYA COBOS on 04/14/19928 Metoprolol Succinate 25 Mg Tab.er.24h, 25 MG PO DAILY Prescribed by: SONYA COBOS on 04/14/19928 Multivit-Min/FA/Lycopene/Lut 1 Each Tablet, 1 TAB PO DAILY, (Reported) Pantoprazole Sodium 40 Mg Tablet.dr, 40 MG PO DAILY Prescribed by: SONYA COBOS on 04/14/19928 Paroxetine HCl 40 Mg Tablet, 40 MG PO HS, (Reported) Patient Home Medication List Home Medication List Reviewed: Yes Past Kfrljjd-Rsohkh-Mvwvck Hx Patient Social History Employed/Student: retired Immunizations Up To Date Date of Influenza Vaccine: Dec 01, 2018 Date of Pneumonia Vaccine: Jan 01, 2009 Seasonal Allergies Seasonal Allergies: No Current Status Primary Language: Tamazight Past Medical History Surgeries: Appendectomy, Tonsillectomy COPD, Emphysema Currently Using CPAP: No Currently Using BIPAP: No Atrial Fibrillation, Hypertension, Syncope Sexually Transmitted Disease: No HIV/AIDS: No Arthritis Cataract Hearing Impairment: Hard of Hearing Anxiety Blood Disorders: No Adverse Reaction/Blood Tranf: No Family Medical History No Pertinent Family Hx Review of Systems Constitutional: No no symptoms reported, No see HPI, No chills, No diaphoresis, No dizziness, No fever, No malaise, No weakness, No weight gain, No weight loss, No other EENTM: No see HPI, No no symptoms reported, No ear discharge, No hearing loss, No ear pain, No blurred vision, No double vision, No eye pain, No tearing, No vision loss, No dental problems, No hoarseness, No mouth pain, No mouth swelling, No epistaxis, No nose congestion, No nose pain, No throat pain, No throat swelling, No other Respiratory: other (COPD) Cardiovascular: No no symptoms reported, No see HPI, No chest pain, No edema, No Hx of Intervention, No palpitations, No syncope, No vascular heart diseas, No other Gastrointestinal: No RUQ, No LUQ, No RLQ, No LLQ, No no symptoms reported, No see HPI, No abdominal pain, No constipation, No diarrhea, No dysphagia, No hematemesis, No heartburn, No jaundice, No loss of appetite, No melena, No nausea, No vomiting, No other Genitourinary: No no symptoms reported, No see HPI, No decreased output, No discharge, No dysuria, No frequency, No hematuria, No hesitancy, No incontinence, No nocturia, No pain, No other Musculoskeletal: muscle weakness (with recent fall) Skin: other (left lower leg redness/wound/swelling) Psychiatric/Neurological: Anxiety Physical Exam Vital Signs Capillary Refill : Height, Weight, BMI Height: 5'3.00" Weight: 106lbs. 0.6oz. 50.647319sz; 19.50 BMI Method:Actual General Appearance: No Apparent Distress, Other (using walker) HEENT: Normal ENT Inspection Neck: Supple Respiratory: Decreased Breath Sounds, Other (wearing oxygen) Cardiovascular: Regular Rate, Rhythm, Systolic Murmur, Gallop/S4 Gastrointestinal: Normal Bowel Sounds, Non Tender, Soft Rectal: Deferred Back: No CVA Tenderness Extremity: Non Tender, No Calf Tenderness, Pedal Edema (left lower extremity with swelling and erythema) Neurologic/Psychiatric: Alert, Oriented x3 Skin: Erythema (with open wound to left macias) Assessment/Plan Assessment and Plan 1. Left Lower Leg Cellulitis with failed outpatient therapy--admit and start IV clindamycin 2. Left Lower Leg Skin Tear--consult wound care 3. Hypertension--restart home meds 4. History of Atrial Fibrillation--resume eliquis 5. COPD--oxygen requiring--continue oxygen via NC and continue advair and SVNs with duoneb prn 6. Alcohol Abuse--will give thiamin/folic acid and alprazolam prn 7. Anxiety--continue paxil Admission Diagnosis Admission Status: Inpatient Order (span 2 midnights) Reason for Inpatient Admission: Will need at least 48hrs of IV abx MERCEDES DURAND DO Oct 13, 2020 11:59
[2020-10-13] MEDS ORDERED: FOLIC ACID 1 MG TAB PO ONE (12:00)
[2020-10-13] MEDS ORDERED: ACETAMINOPHEN 325 MG TABLET PO PRN (12:00)
[2020-10-13] MEDS ORDERED: THIAMINE 100 MG (VITAMIN B-1) TAB PO ONE (12:00)
[2020-10-13] MEDS ORDERED: ALPRAZolam 0.25 MG (XANAX) TAB PO PRN (12:00)
[2020-10-13 13:22] LABS: BASOPHILS # (AUTO) 0.1 10^3/uL (0.0-0.1); BASOPHILS % (AUTO) 1 % (0-10); EOSINOPHILS # (AUTO) 0.2 10^3/uL (0.0-0.3); EOSINOPHILS % (AUTO) 2 % (0-10); HEMATOCRIT 36 % (35-52); HEMOGLOBIN 11.6 g/dL (11.5-16.0); LYMPHOCYTES # (AUTO) 1.2 10^3/uL (1.0-4.0); LYMPHOCYTES % (AUTO) 13 % (12-44); MEAN CORPUSCULAR HEMOGLOBIN 34 pg (25-34); MEAN CORPUSCULAR HGB CONC 33 g/dL (32-36); MEAN CORPUSCULAR VOLUME 104 fL (80-99); MEAN PLATELET VOLUME 10.6 fL (9.0-12.2); MONOCYTES # (AUTO) 0.9 10^3/uL (0.0-1.0); MONOCYTES % (AUTO) 10 % (0-12); NEUTROPHILS # (AUTO) 6.9 10^3/uL (1.8-7.8); NEUTROPHILS % (AUTO) 74 % (42-75); PLATELET COUNT 382 10^3/uL (130-400); WHITE BLOOD COUNT 9.3 10^3/uL (4.3-11.0)
[2020-10-13] MEDS: CLINDAMYCIN 600 MG/50 ML IVPB 50 ML IV SCH ×2 (13:41→21:42)
[2020-10-13 13:44] LABS: ALBUMIN 4.2 GM/DL (3.2-4.5); BILIRUBIN,TOTAL 0.7 MG/DL (0.1-1.0); CALCIUM 10.7 MG/DL (8.5-10.1); CREATININE SERUM 0.67 MG/DL (0.60-1.30); TOTAL PROTEIN 7.9 GM/DL (6.4-8.2)
[2020-10-13 13:49] LABS: ERYTHROCYTE SEDIMENTATION RATE 28 MM/HR (0-30)
[2020-10-13 13:50] LABS: POTASSIUM 4.4 MMOL/L (3.6-5.0)
[2020-10-13] MEDS: RT-ALBUTEROL/IPRATROPIUM 3 ML (DUONEB) VIAL INH SCH ×3 (14:04→22:34)
[2020-10-13] MEDS ORDERED: MTP25TSR PO (14:33)
[2020-10-13] MEDS ORDERED: ASCO500C17 PO (14:33)
[2020-10-13] MEDS ORDERED: FOLI1TAB33 PO (14:33)
[2020-10-13] MEDS ORDERED: DOXY100T2 PO (14:34)
[2020-10-13 15:25] VITALS: BP 113/73
[2020-10-13] MEDS: RT--FLUTICASONE/SALMETEROL 113-14 (AIRDUO RespiCLICK) IH SCH (19:03)
[2020-10-13 19:45] VITALS: BP 110/70
[2020-10-13] MEDS: APIXABAN 2.5 MG (ELIQUIS) TABLET PO SCH (19:51)
[2020-10-13] MEDS: PARoxetine 20 MG (PAXIL) TAB PO SCH (19:51)
[2020-10-13 23:30] VITALS: BP 104/66
[2020-10-14] MEDS: RT-ALBUTEROL/IPRATROPIUM 3 ML (DUONEB) VIAL INH SCH ×6 (02:25→22:20)
[2020-10-14 03:34] VITALS: BP 136/79
[2020-10-14] MEDS: THIAMINE 100 MG (VITAMIN B-1) TAB PO SCH (06:18)
[2020-10-14] MEDS: CLINDAMYCIN 600 MG/50 ML IVPB 50 ML IV SCH ×3 (06:19→21:14)
--- NOTE | 2020-10-14 08:12 | Wound Care Assessment ---
Wound Care Assessment Date Seen by Provider: Oct 14, 2020 Time Seen by Provider: 08:06 Chief Complaint L calf ulcer. HPI The patient is a pleasant 85 year old female with a month-long history of non- healing ulcer of L anterior calf, subsequent to fall, admitted for associated cellulitis. This latter is much improved with antibiotics and elevation. The wound is stable with Xeroform dressings. Encouraged continued elevation. Will follow-up as an out-patient. Smoking Status: Former Smoker Review of Systems Pulmonary: No Dyspnea Cardiovascular: No: Chest Pain Gastrointestinal: No: Abdominal Pain Exam Vital Signs Date Time Temp Pulse Resp B/P (MAP) Pulse Ox O2 Delivery O2 Flow Rate FiO2 10/14/20 03:34 36.5 79 16 136/79 (98) 100 Nasal Cannula 3.00 Capillary Refill : General Appearance: no apparent distress Respiratory: no respiratory distress Extremities: other (L anterior calf -- 1.5 x 4.5 x 0.2 cm, base 100% dried exudate.) Results Laboratory Tests 10/13/20 12:00: White Blood Count 9.3, Red Blood Count 3.42L, Hemoglobin 11.6, Hematocrit 36, Mean Corpuscular Volume 104H, Mean Corpuscular Hemoglobin 34, Mean Corpuscular Hemoglobin Concent 33, Red Cell Distribution Width 13.5, Platelet Count 382, Mean Platelet Volume 10.6, Immature Granulocyte % (Auto) 0, Neutrophils (%) (Auto) 74, Lymphocytes (%) (Auto) 13, Monocytes (%) (Auto) 10, Eosinophils (%) (Auto) 2, Basophils (%) (Auto) 1, Neutrophils # (Auto) 6.9, Lymphocytes # (Auto) 1.2, Monocytes # (Auto) 0.9, Eosinophils # (Auto) 0.2, Basophils # (Auto) 0.1, Immature Granulocyte # (Auto) 0.0, Erythrocyte Sedimentation Rate 28, Sodium Level 138, Potassium Level 4.4, Chloride Level 94L, Carbon Dioxide Level 34H, Anion Gap 10, Blood Urea Nitrogen 9, Creatinine 0.67, Estimat Glomerular Filtration Rate 83, BUN/Creatinine Ratio 13, Glucose Level 106H, Calcium Level 10.7H, Corrected Calcium 10.5H, Total Bilirubin 0.7, Aspartate Amino Transf (AST/SGOT) 32, Alanine Aminotransferase (ALT/SGPT) 16, Alkaline Phosphatase 91, Total Protein 7.9, Albumin 4.2 Assessment/Plan/Dx 1. Ulcer L anterior calf, full thickness. 2. Lymphedema, resolving. 3. Cellulitis, resolving. Plan: Daily Xeroform dressings. Can follow-up in out-patient clinic, if attending desires. DEBORAH HOBBS MD Oct 14, 2020 08:12
[2020-10-14 08:35] VITALS: BP 142/84
[2020-10-14] MEDS: ASPIRIN 81 MG CHEW (CHILDREN'S ASA) PO SCH (09:31)
[2020-10-14] MEDS: amLODIPine 5 MG (NORVASC) TAB PO SCH (09:31)
[2020-10-14] MEDS: PANTOPRAZOLE 40 MG (PROTONIX) TAB PO SCH (09:31)
[2020-10-14] MEDS: APIXABAN 2.5 MG (ELIQUIS) TABLET PO SCH ×2 (09:31→19:18)
[2020-10-14] MEDS: FOLIC ACID 1 MG TAB PO SCH (09:31)
[2020-10-14] MEDS: RT--FLUTICASONE/SALMETEROL 113-14 (AIRDUO RespiCLICK) IH SCH ×2 (10:46→22:20)
[2020-10-14 12:23] VITALS: BP 133/80
--- NOTE | 2020-10-14 13:53 | Progress Note - Hospitalist ---
Subjective HPI/CC On Admission Date Seen by Provider: Oct 14, 2020 Time Seen by Provider: 13:49 Subjective/Events-last exam Pt reports feeling well today. No complaints. Waiting for her wound to be dressed but otherwise no concerned. Objective Exam Vital Signs Vital Signs Date Time Temp Pulse Resp B/P (MAP) Pulse Ox O2 Delivery O2 Flow Rate FiO2 10/14/20 12:23 36.2 71 18 133/80 (97) 100 Nasal Cannula 4.00 Capillary Refill : General Appearance: No Apparent Distress, Chronically ill, Thin Respiratory: No Accessory Muscle Use, Decreased Breath Sounds, Other (on NC) Cardiovascular: Regular Rate, Rhythm Extremity: Other (left leg with erythema and warmth, not previously marked, wound noted which is dry and without much purulence) Neurologic/Psychiatric: Alert, Oriented x3 Results/Procedures Lab Patient resulted labs reviewed. Assessment/Plan Assessment and Plan Assess & Plan/Chief Complaint 1. Left Lower Leg Cellulitis with failed outpatient therapy--Continue clinda, add probiotics 2. Left Lower Leg Skin Tear-- wound care, appreciate recs 3. Hypertension--continue home meds 4. History of Atrial Fibrillation--resume eliquis 5. COPD--oxygen requiring--continue oxygen via NC and continue advair and SVNs with duoneb prn 6. Alcohol Abuse-- thiamin/folic acid and alprazolam prn 7. Anxiety--continue CASI Stone MD Oct 14, 2020 13:53
[2020-10-14] MEDS: LACTOBACILLUS ACIDOPHILUS (PROBIOTIC) CAPSULE PO SCH ×2 (15:33→18:09)
[2020-10-14 15:44] VITALS: BP 121/74
[2020-10-14] MEDS: PARoxetine 20 MG (PAXIL) TAB PO SCH (19:21)
[2020-10-14 19:54] VITALS: BP 135/74
[2020-10-14 23:39] VITALS: BP 103/72
[2020-10-15] MEDS: RT-ALBUTEROL/IPRATROPIUM 3 ML (DUONEB) VIAL INH SCH ×3 (02:15→10:18)
[2020-10-15 04:38] VITALS: BP 117/69
[2020-10-15 05:52] LABS: HEMATOCRIT 30 % (35-52); HEMOGLOBIN 9.6 g/dL (11.5-16.0); MEAN CORPUSCULAR HEMOGLOBIN 33 pg (25-34); MEAN CORPUSCULAR HGB CONC 32 g/dL (32-36); MEAN CORPUSCULAR VOLUME 104 fL (80-99); MEAN PLATELET VOLUME 9.7 fL (9.0-12.2); PLATELET COUNT 287 10^3/uL (130-400); WHITE BLOOD COUNT 8.6 10^3/uL (4.3-11.0)
[2020-10-15 06:05] LABS: POTASSIUM 3.6 MMOL/L (3.6-5.0)
[2020-10-15 06:06] LABS: CALCIUM 9.5 MG/DL (8.5-10.1)
[2020-10-15] MEDS: THIAMINE 100 MG (VITAMIN B-1) TAB PO SCH (06:08)
[2020-10-15] MEDS: CLINDAMYCIN 600 MG/50 ML IVPB 50 ML IV SCH (06:08)
[2020-10-15 06:10] LABS: CREATININE SERUM 0.66 MG/DL (0.60-1.30)
[2020-10-15] MEDS: amLODIPine 5 MG (NORVASC) TAB PO SCH (08:30)
[2020-10-15] MEDS: APIXABAN 2.5 MG (ELIQUIS) TABLET PO SCH (08:30)
[2020-10-15] MEDS: FOLIC ACID 1 MG TAB PO SCH (08:30)
[2020-10-15] MEDS: LACTOBACILLUS ACIDOPHILUS (PROBIOTIC) CAPSULE PO SCH (08:30)
[2020-10-15] MEDS: PANTOPRAZOLE 40 MG (PROTONIX) TAB PO SCH (08:30)
[2020-10-15] MEDS: ASPIRIN 81 MG CHEW (CHILDREN'S ASA) PO SCH (08:30)
[2020-10-15 08:37] VITALS: BP 126/84
[2020-10-15] MEDS: RT--FLUTICASONE/SALMETEROL 113-14 (AIRDUO RespiCLICK) IH SCH (10:18)
[2020-10-15 11:29] VITALS: BP 128/76
[2020-10-15] MEDS ORDERED: CLIN300C12 PO (12:01)
--- NOTE | 2020-10-15 12:02 | Discharge Inst-Simple/Standard ---
Discharge Inst-Standard Discharge Medications New, Converted or Re-Newed RX: Transmitted to Pharmacy Patient Instructions/Follow Up Plan of Care/Instructions/FU: Please continue to take your medications as written. Please follow up with your primary care doctor to follow up this hospital stay. Activity as Tolerated: Yes Discharge Diet: No Restrictions Return to The Hospital For: Fever, worsening redness or drainage, swelling, chest pain, shortness of breath, if you feel you are getting worse. CASI PALOMINO MD Oct 15, 2020 12:02
--- NOTE | 2020-10-15 12:03 | Discharge Summary ---
Diagnosis/Chief Complaint Date of Admission Oct 13, 2020 at 11:24 Date of Discharge Discharge Date: Oct 15, 2020 Primary Care Mercedes Durand DO Discharge Summary Discharge Physical Exam Allergies: Coded Allergies: No Known Drug Allergies (Unverified , 06/26/15) Vitals & I&Os Vital Signs Date Time Temp Pulse Resp B/P (MAP) Pulse Ox O2 Delivery O2 Flow Rate FiO2 10/15/20 11:29 35.9 81 20 128/76 (93) 99 Nasal Cannula 3.00 General Appearance: No Apparent Distress, Chronically ill, Thin Respiratory: Lungs Clear, No Respiratory Distress Cardiovascular: Regular Rate, Rhythm Extremity: Other (improving erythema andminimal edema, skin tear wrapped) Neurologic/Psychiatric: Alert, Oriented x3 Hospital Course Patient is an 85-year-old female who was admitted to the hospital due to cellulitis after failing outpatient treatment. She was started on doxycycline by an urgent care and this did not improve her symptoms. She was seen by Dr. DURAND and was direct admitted due to progressing cellulitis. She was started on IV clindamycin and did well. Her erythema was still present though markedly improved along with her edema. She was seen in consultation by wound care who will follow her as an outpatient. She was discharged home at her request in stable and improved condition to follow-up with Dr. DURAND next week. Labs (last 24 hrs) Laboratory Tests 10/15/20 05:25: White Blood Count 8.6, Red Blood Count 2.87L, Hemoglobin 9.6L, Hematocrit 30L, Mean Corpuscular Volume 104H, Mean Corpuscular Hemoglobin 33, Mean Corpuscular Hemoglobin Concent 32, Red Cell Distribution Width 14.0, Platelet Count 287, Mean Platelet Volume 9.7, Sodium Level 142, Potassium Level 3.6, Chloride Level 97L, Carbon Dioxide Level 33H, Anion Gap 12, Blood Urea Nitrogen 12, Creatinine 0.66, Estimat Glomerular Filtration Rate 85, BUN/Creatinine Ratio 18, Glucose Level 108H, Calcium Level 9.5 Patient resulted labs reviewed. Pending Labs Laboratory Tests 10/15/20 05:25: White Blood Count 8.6, Red Blood Count 2.87, Hemoglobin 9.6, Hematocrit 30, Mean Corpuscular Volume 104, Mean Corpuscular Hemoglobin 33, Mean Corpuscular Hemoglobin Concent 32, Red Cell Distribution Width 14.0, Platelet Count 287, Mean Platelet Volume 9.7, Sodium Level 142, Potassium Level 3.6, Chloride Level 97, Carbon Dioxide Level 33, Anion Gap 12, Blood Urea Nitrogen 12, Creatinine 0.66, Estimat Glomerular Filtration Rate 85, BUN/Creatinine Ratio 18, Glucose Level 108, Calcium Level 9.5 Discussion & Recommendations Discharge Planning: >30 minutes discharge planning Discharge Home Medications: Active Scripts Active Clindamycin HCl 300 Mg Capsule 300 Mg PO QID Reported Vitamin C (Ascorbic Acid) 500 Mg Capsule 500 Mg PO DAILY Folic Acid 1 Mg Tablet 1 Mg PO DAILY Metoprolol Succinate 25 Mg Tab.er.24h 25 Mg PO DAILY Amlodipine Besylate 5 Mg Tablet 5 Mg PO DAILY Tylenol Extra Strength (Acetaminophen) 500 Mg Tablet 500 Mg PO BID PRN Centrum Silver Tablet (Multivit-Min/FA/Lycopene/Lut) 1 Each Tablet 1 Tab PO DAILY Aspirin EC (Aspirin) 81 Mg Tablet.dr 81 Mg PO DAILY Atorvastatin Calcium 40 Mg Tablet 40 Mg PO DAILY Eliquis (Apixaban) 2.5 Mg Tablet 2.5 Mg PO BID Paroxetine HCl 40 Mg Tablet 40 Mg PO HS Advair Hfa 115-21 Mcg Inhaler (Fluticasone/Salmeterol) 12 Gm Hfa.aer.ad 1 Puff IH BID Caltrate 600 + D Tablet (Calcium Carbonate/Vitamin D3) 1 Each Tablet 1 Tab PO DAILY Instructions to patient/family Please see electronic discharge instructions given to patient. CASI PALOMINO MD Oct 15, 2020 12:03
== END 2020-10-15 12:45 | disposition home or self-care (01) | DRG 603 ==
LOC: 4TH 11:24
PROVIDERS: ADMIT Family Medicine; ATTEND Family Medicine
DX: L03.116 Cellulitis of left lower limb (principal); I10 Essential (primary) hypertension; I48.91 Unspecified atrial fibrillation; F10.10 Alcohol abuse, uncomplicated; F41.9 Anxiety disorder, unspecified; J43.9 Emphysema, unspecified; M19.90 Unspecified osteoarthritis, unspecified site; Z79.82 Long term (current) use of aspirin; Z79.899 Other long term (current) drug therapy
CPT/HCPCS: 36415; 80048; 80053; 85025; 85027; 85652; 94640; 94760

== ENCOUNTER → 2020-10-24 | Outpatient (CLI) | payer MEDICARE, BC ==
[~2020-10-24] MED LIST changes: +ASCO500C17 PO; +CLIN300C12 PO; +DOXY100T2 PO
== END ==
LOC: WOUNDCARE 13:05
PROVIDERS: ATTEND Surgery
DX: I87.332 Chronic venous hypertension (idiopathic) with ulcer and inflammation of left lower extremity (principal); I70.242 Atherosclerosis of native arteries of left leg with ulceration of calf; L97.222 Non-pressure chronic ulcer of left calf with fat layer exposed; J44.9 Chronic obstructive pulmonary disease, unspecified
CPT/HCPCS: 99212

== ENCOUNTER → 2020-10-30 | Outpatient (CLI) | payer MEDICARE, BC | LOC: WOUNDCARE 15:24 | PROVIDERS: ATTEND Surgery | DX: I87.332 Chronic venous hypertension (idiopathic) with ulcer and inflammation of left lower extremity (principal); L97.222 Non-pressure chronic ulcer of left calf with fat layer exposed; J44.9 Chronic obstructive pulmonary disease, unspecified; I96 Gangrene, not elsewhere classified | CPT/HCPCS: 99213 ==

== ENCOUNTER → 2020-11-13 | Outpatient (CLI) | payer MEDICARE, BC | LOC: WOUNDCARE 12:36 | PROVIDERS: ATTEND Surgery | DX: I87.332 Chronic venous hypertension (idiopathic) with ulcer and inflammation of left lower extremity (principal); L97.222 Non-pressure chronic ulcer of left calf with fat layer exposed; J44.9 Chronic obstructive pulmonary disease, unspecified | CPT/HCPCS: 99212 ==